=== PATIENT | male | born 1945 | race Caucasian/White ===

== ENCOUNTER → 2018-05-16 08:04 | Outpatient (CLI) | payer MEDICARE, SELFPAY ==
--- NOTE | 2018-05-16 | DI.RAD.S_ITS ---
PROCEDURE: XR CERVICAL SPINE 2V OR 3V INDICATIONS: NECK PAIN TECHNIQUE: 4 view(s) of the cervical spine were acquired. COMPARISON: [facility], , CERVICAL SPINE 2 OR 3 VIEWS, 05/31/2011, 12:40. FINDINGS: Bones: No fractures or dislocations to the C6 level. C7-T1 are obscured by shoulder density on lateral view. Anterior ankylosing spondylosis C4-C6 again noted. Multilevel degenerative disc disease, most marked at C5-6 and C6-7. The lateral masses of C1 appear intact on the odontoid view. No suspicious bony lesions. Soft tissues: No prevertebral soft tissue swelling. Bilateral carotid artery calcifications. IMPRESSION: No significant interval change in diffuse degenerative cervical spine disease. Diffuse calcification in the anterior spinous ligament at C4-C6 overrides the anterior spondylosis present at the disc levels as before. Dictated by: Clint Stockton M.D. on 05/16/2018 at 8:42 Approved by: Clint Stockton M.D. on 05/16/2018 at 8:47
== END ==
PROVIDERS: PCP Physician Assistant; Visit Provider Physician Assistant
DX: M50.322 Other cervical disc degeneration at C5-C6 level (principal); M47.812 Spondylosis without myelopathy or radiculopathy, cervical region; M54.2 Cervicalgia
CPT/HCPCS: 72040

== ENCOUNTER → 2019-10-13 08:21 | Outpatient (CLI) | payer OTHER, SELFPAY ==
[2019-10-13 09:42] LABS: BUN Creatinine Ratio 12.1 (6-22); Blood Urea Nitrogen 17 mg/dL (9-20); Calcium 9.8 mg/dL (8.4-10.2); Carbon Dioxide 30 mmol/L (22-32); Chloride 92 mmol/L (98-107); Estimated Glomerular Filt Rate 49.4 mL/min (>60); Glucose 123 mg/dL (80-110); HEMOLYSIS < 15 (0-50); Potassium 4.9 mmol/L (3.4-5.1); Sodium 131 mmol/L (137-145)
== END ==
PROVIDERS: PCP Internal Medicine; Visit Provider Internal Medicine
DX: E87.6 Hypokalemia (principal)
CPT/HCPCS: 36415; 80048

== ENCOUNTER → 2020-07-13 10:12 | Outpatient (CLI) | payer OTHER, SELFPAY ==
[2020-07-13 11:20] LABS: Hemoglobin A1C% w Est Avg Glu 6.5 % (4.0-6.0)
[2020-07-13 11:21] LABS: Add Manual Diff / Slide Review NO; Basophils Absolute Auto 100 /uL (0-100); Eosinophils Absolute Auto 200 /uL (0-450); Eosinophils Percent Auto 4.1 % (2-4); Hematocrit 34.6 % (41-53); Hemoglobin 11.9 g/dL (13.5-17.5); Lymphocytes Absolute Auto 1600 /uL (1100-4500); Lymphocytes Percent Auto 29.3 % (25-40); Mean Corpuscular HGB Conc 34.5 % (30-36); Mean Corpuscular Hemoglobin 34.6 PG (26-34); Mean Corpuscular Volume 100.5 fL (80-100); Monocytes Absolute Auto 700 /uL (0-900); Monocytes Percent Auto 12.5 % (3-14); Neutrophils Absolute Auto 3000 /uL (1500-7000); Neutrophils Percent Auto 53.1 % (50-75); Platelet Count 239 X10^3/uL (150-400); Red Blood Cell Count 3.44 X10^6/uL (4.5-5.9); Red Cell Distribution Width 12.1 % (11.6-14.8); White Blood Cell Count 5.6 X10^3/uL (4.5-11.0)
[2020-07-13 11:57] LABS: Alanine Aminotransferase 19 IU/L (<50); Albumin 4.1 g/dL (3.5-5.0); Albumin Globulin Ratio 1.2 (1.0-2.8); Alkaline Phosphatase 95 U/L (38-126); Aspartate Aminotransferase 28 IU/L (17-59); BUN Creatinine Ratio 13.8 (6-22); Bilirubin Total 0.7 mg/dL (0.2-1.3); Bilirubin Unconjugated 0.5 mg/dL (0.0-1.1); Blood Urea Nitrogen 19 mg/dL (9-20); Calcium 9.4 mg/dL (8.4-10.2); Carbon Dioxide 25 mmol/L (22-32); Chloride 94 mmol/L (98-107); Cholesterol 174 mg/dL (140-199); Estimated Glomerular Filt Rate 50.1 mL/min (>60); Globulin 3.3 g/dL (1.7-4.1); Glucose 97 mg/dL (80-110); HDL Cholesterol 86 mg/dL (40-60); HEMOLYSIS < 15 (0-50); LDL Cholesterol Calculated 75 mg/dL (<100); Potassium 5.1 mmol/L (3.4-5.1); Sodium 128 mmol/L (137-145); Total Protein 7.4 g/dL (6.3-8.2); Triglycerides 65 mg/dL (35-150)
== END ==
PROVIDERS: PCP Internal Medicine; Referring Provider Internal Medicine; Visit Provider Internal Medicine
DX: E11.9 Type 2 diabetes mellitus without complications (principal); I10 Essential (primary) hypertension; E78.2 Mixed hyperlipidemia; B35.1 Tinea unguium
CPT/HCPCS: 36415; 80053; 80061; 80076; 83036; 85025

== ENCOUNTER → 2021-02-06 08:17 | Outpatient (CLI) | payer OTHER, SELFPAY ==
[2021-02-06 08:46] LABS: Add Manual Diff / Slide Review NO; Basophils Absolute Auto 0 /uL (0-100); Basophils Percent Auto 1.1 % (0-2); Eosinophils Absolute Auto 200 /uL (0-450); Eosinophils Percent Auto 4.1 % (2-4); Hematocrit 35.4 % (41-53); Lymphocytes Absolute Auto 1400 /uL (1100-4500); Lymphocytes Percent Auto 32.8 % (25-40); Mean Corpuscular HGB Conc 33.9 % (30-36); Mean Corpuscular Hemoglobin 34.4 PG (26-34); Mean Corpuscular Volume 101.6 fL (80-100); Monocytes Absolute Auto 600 /uL (0-900); Monocytes Percent Auto 14.3 % (3-14); Neutrophils Absolute Auto 2000 /uL (1500-7000); Neutrophils Percent Auto 47.7 % (50-75); Platelet Count 235 X10^3/uL (150-400); Red Blood Cell Count 3.48 X10^6/uL (4.5-5.9); Red Cell Distribution Width 12.4 % (11.6-14.8); White Blood Cell Count 4.3 X10^3/uL (4.5-11.0)
[2021-02-06 09:06] LABS: Alanine Aminotransferase 26 IU/L (<50); Albumin 4.2 g/dL (3.5-5.0); Albumin Globulin Ratio 1.2 (1.0-2.8); Alkaline Phosphatase 78 U/L (38-126); Aspartate Aminotransferase 29 IU/L (17-59); BUN Creatinine Ratio 15.1 (6-22); Bilirubin Total 0.2 mg/dL (0.2-1.3); Blood Urea Nitrogen 19 mg/dL (9-20); Calcium 9.6 mg/dL (8.4-10.2); Carbon Dioxide 29 mmol/L (22-32); Chloride 95 mmol/L (98-107); Cholesterol 182 mg/dL (140-199); Estimated Glomerular Filt Rate 55.5 mL/min (>60); Globulin 3.4 g/dL (1.7-4.1); Glucose 137 mg/dL (80-110); HDL Cholesterol 88 mg/dL (40-60); HEMOLYSIS < 15 (0-50); LDL Cholesterol Calculated 83 mg/dL (<100); Potassium 4.5 mmol/L (3.4-5.1); Sodium 131 mmol/L (137-145); Total Protein 7.6 g/dL (6.3-8.2); Triglycerides 53 mg/dL (35-150)
== END ==
PROVIDERS: PCP Internal Medicine; Referring Provider Internal Medicine; Visit Provider Internal Medicine
DX: I10 Essential (primary) hypertension (principal); E08.8 Diabetes mellitus due to underlying condition with unspecified complications
CPT/HCPCS: 36415; 80053; 80061; 85025

== ENCOUNTER 2021-05-10 11:03 | Emergency (ER) | payer OTHER, SELFPAY ==
[2021-05-10 11:10] VITALS: BP 173/94; PULSE 114; RESP 14; TEMP 36.8; O2SAT 97; BMI 24.4
--- NOTE | 2021-05-10 11:18 | ED_ITS ---
HPI - Fall General Chief Complaint: Fall Stated Complaint: had a fall 2 days ago, wound on left eyebrow Time Seen by Provider: 05/10/21 11:09 Source: patient and family Mode of arrival: Ambulatory Limitations: no limitations History of Present Illness HPI Narrative: 75-year-old male nonsmoker but daily drinker (1 bottle of wine) presents with family in the chief complaint of a ground level fall 2 days ago. He had been walking in his living room and stumbled, he reached out to try to brace himself and pushed furniture forward and he fell forward striking his head and face on the ground. He denies any loss of consciousness and states he has full recall. He takes no blood thinners. He has had no confusion or vomiting. He did suffer a large laceration over his left eye and was very hesitant to come in because he does not like doctors. He came today because family came to check on him and the reached out to his primary care doctor who sent him here. He denies any blurred vision, trouble with speech. He denies difficulty breathing through his nose. He has no loose teeth. MD complaint: fall Onset (ago): day(s) Fall from: standing Fall witnessed: no Place fall occurred: home Loss of consciousness: none Prolonged down time: no Symptoms prior to fall: none Context: tripped/slipped and alcohol use Location of injury: head and face Severity: moderate Associated symptoms (after fall): chest pain Related Data Home Medications Medication Instructions Recorded Confirmed MENTHOL/METHYL SALICYLATE (PAIN 1 cre TP #0 12/12/12 RELIEF 10%-15%) OMEPRAZOLE 20 mg PO QDAY #0 12/12/12 metformin [Glumetza] 1,000 mg PO QAM #0 12/12/12 Previous Rx's Medication Instructions Recorded cephalexin 500 mg PO Q6H 7 Days #28 cap 05/10/21 hydrocodone-acetaminophen 1 tab PO Q4-6H PRN #10 tab 05/10/21 Allergies Allergy/AdvReac Type Severity Reaction Status Date / Time No Known Drug Allergies Allergy Verified 05/10/21 11:16 Review of Systems Constitutional Constitutional: Denies chills, Denies fatigue, Denies fever(s), Denies frequent falls, Denies lethargy and Denies weakness Eyes Eyes: Denies change in vision, Denies eye discharge, Denies irritation and Denies loss of vision ENT Ears, Nose, Mouth, and Throat: Denies change in voice, Denies dizziness, Denies neck pain, Denies sore throat and Denies throat swelling Cardiovascular Cardiovascular: Denies chest pain, Denies irregular heart rhythm, Denies lig htheadedness, Denies palpitations, Denies dyspnea, Denies dyspnea on exertion and Denies orthopnea Respiratory Respiratory: Denies cough, Denies dyspnea, Denies dyspnea on exertion and Denies wheezing Gastrointestinal Gastrointestinal: Denies abdominal pain, Denies change in bowel habits, Denies diarrhea, Denies nausea and Denies vomiting Musculoskeletal Musculoskeletal: Denies neck pain and Denies numbness Integumentary/Breasts Skin/Breast: Denies pruritus, Denies erythema, Denies rash and Denies wounds Neurologic Neurologic: Denies behavioral changes, Denies confusion, Denies dizziness, Denies frequent falls, Denies loss of vision, Denies numbness and Denies weakness Psychiatric Psychiatric: Denies anxiety, Denies behavioral changes, Denies confusion, Denies depression, Denies homicidal ideation and Denies suicidal ideation Endocrine Endocrine: Denies fatigue, Denies flushing and Denies palpitations Hematologic/Lymphatic Hematologic/Lymphatic: Denies easy bruising Allergic/Immunologic Allergic/Immunologic: Denies urticaria, Denies throat swelling and Denies wheezing Patient History Social History Smoking Status: Unknown if ever smoked Exam Narrative Exam Narrative: GENERAL: [75] year old patient appears stated age. Well-devel oped patient, in mild distress. Flat affect, normal per family. GCS 15 HEAD: Deep irregular laceration overlying left brow, no active bleeding, no evidence of depressed skull fracture EYES: Pupils equal round and reactive. No hyphema Extraocular motions intact. No scleral icterus. No injection or drainage. ENT: Nose without bleeding, purulent drainage. No nasal septal hematoma or hemotympanum Throat without erythema, tonsillar hypertrophy or exudate. Airway patent. NECK: Trachea midline. Non tender CARDIOVASCULAR: Tachycardic but regular rhythm without murmurs, gallops, or rubs. Anterior chest tender to palpation, no crepitance, ecchymosis or erythema RESPIRATORY: Clear to auscultation. Breath sounds equal bilaterally. No wheezes, rales, or rhonchi. GASTROINTESTINAL: Abdomen soft, non-tender, nondistended. EXTREMITIES: No edema or joint tenderness. BACK: Nontender without deformity or crepitance. No flank tenderness. NEURO: AOx3. SKIN: No rash or erythema of visible areas Initial Vital Signs Initial Vital Signs: Vital Signs Temperature 98.2 F 05/10/21 11:10 Pulse Rate 114 H 05/10/21 11:10 Respiratory Rate 14 05/10/21 11:10 Blood Pressure 173/94 H 05/10/21 11:10 Pulse Oximetry 97 05/10/21 11:10 Course Orders Ordered: ED Orders 05/10/21 11:18 CT cervical spine wo con Stat CT head/brain wo con Stat 05/10/21 11:21 CT chest abd pel w con Stat 05/10/21 11:30 Complete Blood Count AUTO DIFF Stat Comprehensive Metabolic Panel Stat Troponin & CK Cardiac Panel Stat 05/10/21 12:00 CT facial bones wo con Stat Discontinued Medications Diphtheria/Tetanus/Acell Pertussis (Tet,Diph,Pertuss(Acell),Vac/Pf 0.5 Ml Syringe) 0.5 ml IM .ONCE ONE Stop: 05/10/21 11:18 Last Admin: 05/10/21 11:31 Dose: 0.5 ml Documented by: STEPHANY Sodium Chloride (Normal Saline 0.9%) 1,000 mls @ 125 mls/hr IV CONT SAMANTHA Last Infusion: 05/10/21 15:09 Dose: 0 mls/hr Documented by: Admin: 05/10/21 11:33 Dose: 125 mls/hr Documented by: STEPHANY Lidocaine/Epinephrine (Lidocaine 1% W/Epi) 1 ml SUBCUT NOW ONE Stop: 05/10/21 14:08 Last Admin: 05/10/21 14:53 Dose: 1 ml Documented by: ATARONYOR Vital Signs Vital signs: Vital Signs - 8 hr 05/10/21 11:10 05/10/21 14:57 Temperature 98.2 F Pulse Rate 114 H 89 Respiratory Rate 14 18 Blood Pressure 173/94 H 184/83 H Pulse Oximetry 97 97 MDM - Fall Lab Data Result diagrams: 05/10/21 11:30 05/10/21 11:30 Labs: Lab Results 05/10/21 05/10/21 05/10/21 Range/Units 11:30 11:30 11:30 WBC 6.3 (4.5-11.0) X10^3/uL RBC 3.59 L (4.5-5.9) X10^6/uL Hgb 12.3 L (13.5-17.5) g/dL Hct 36.4 L (41-53) % MCV 101.5 H (80-100) fL MCH 34.4 H (26-34) PG MCHC 33.9 (30-36) % RDW 12.7 (11.6-14.8) % Plt Count 271 (150-400) X10^3/uL Neut % (Auto) 72.1 (50-75) % Lymph % (Auto) 18.1 L (25-40) % [place] % (Auto) 8.4 (3-14) % Eos % (Auto) 0.4 L (2-4) % Baso % (Auto) 1.0 (0-2) % Neut # (Auto) 4500 (4448-3102) /uL Lymph # (Auto) 1100 (6311-5299) /uL [place] # (Auto) 500 (0-900) /uL Eos # (Auto) 0 (0-450) /uL Baso # (Auto) 100 (0-100) /uL Sodium 132 L (137-145) mmol/L Potassium 4.6 (3.4-5.1) mmol/L Chloride 93 L (98-107) mmol/L Carbon Dioxide 28 (22-32) mmol/L BUN 16 (9-20) mg/dL Creatinine 1.14 (0.66-1.25) mg/dL Estimated GFR > 60.0 (>60) mL/min BUN/Creatinine Ratio 14.0 (6-22) Glucose 136 H (80-110) mg/dL Calcium 9.8 (8.4-10.2) mg/dL Total Bilirubin 0.6 (0.2-1.3) mg/dL AST 48 (17-59) IU/L ALT 36 (<50) IU/L Alkaline Phosphatase 142 H (38-126) U/L Total Creatine Kinase 32 L (55-170) U/L CK-MB (CK-2) TNP CK-MB (CK-2) Rel Index TNP Troponin I < 0.012 (0.01-0.034) ng/mL Total Protein 8.1 (6.3-8.2) g/dL Albumin 4.3 (3.5-5.0) g/dL Globulin 3.8 (1.7-4.1) g/dL Albumin/Globulin Ratio 1.1 (1.0-2.8) Urine Dip Bedside Urine Glucose Negative Bedside Urine Bilirubin - Negative Bedside Urine Ketone +/- 5 Urine Specific [place] 1.030 Bedside Urine Occult Blood - Negative Bedside Urine pH 5.5 Bedside Urine Protein + 30 Bedside Urine Urobilinogen - Negative Bedside Urine Nitrite - Negative Bedside Urine Leukocytes - Negative Esterase Imaging Data CT scan - head: Radiologist's Impression: CT Scan ReportSigned Patient: Kanika Angela R#: [id number]: 1945cct:[id number]/Sex: 75 / MDate of Service: 05/10/21Loc: EDAccession Number: [id number] Procedure: CT head/brain wo con Ordering Provider: Benigno Guillen D.O. PROCEDURE: CT HEAD/BRAIN WO CON INDICATIONS: fall with head injury 2 days ago TECHNIQUE: Noncontrast 4.5 mm thick angled axial sections acquired from the foramen magnum to the vertex, with coronal and sagittal reformats. For radiation dose reduction, the following was used: automated exposure control, adjustment of mA and/or kV according to patient size. COMPARISON: [facility], CT, HEAD WITHOUT CONTRAST, 05/31/2011, 12:41. FINDINGS: Image quality: Excellent. CSF spaces: Basal cisterns are patent. No extra-axial fluid collections. The ventricles are symmetric in size and shape. Brain: No intracranial bleeds or masses. There is diffuse volume loss which is greater than expected for patient age, with associated mild ventriculomegaly and prominence of the sulci. There are periventricular and deep white matter chronic small vessel ischemic changes. There is intracranial internal carotid artery atherosclerosis. Skull and face: Calvarium and visualized facial bones appear intact, without suspicious lesions. Sinuses: Visualized sinuses and mastoids are clear. IMPRESSION: Diffuse volume loss is greater than expected for patient age. Negative for acute stroke, hemorrhage, or mass. No evidence of significant intracranial sequelae of acute trauma. Dictated by: Wm Savage M.D. on 05/10/2021 at 13:11 Approved by: Wm Savage M.D. on 05/10/2021 at 13:13 CT - cervical spine: Radiologist's Impression: Chart Viewer Diagnostics DATE TYPE STATUS REF RANGE/AUTHOR Hx Today 12:00 Alen Arriola Today 11:21 Alen Arriola Today 11:18 Wm Savage Today 11:18 Wm Savage 05/16/18 00:00 Clint Stockton Bobbie H 75, M112/20/1944 [facility], [facility] ED R07 182.88cm 81.647kg BMI: 24.4kg/m? Fall Search Chart No Data to Display NonFormulary Not Included in Conflicts No Data to Display Today 11:10 Kanika Angela 75 M [address] [id number] Scan ReportSigned Patient: Kanika Angela HMR#: [id number]: 1945cct:[id number]/Sex: 75 / MDate of Service: 05/10/21Loc: EDAccession Number: [id number] Procedure: CT cervical spine wo con Ordering Provider: Benigno Guillen D.O. PROCEDURE: CT CERVICAL SPINE WO CON INDICATIONS: fall with head injury 2 days ago TECHNIQUE: Noncontrast 3 mm thick sections acquired from the skull base to the T4 level. Sagittal and coronal reformats were then constructed. For radiation dose reduction, the following was used: automated exposure control, adjustment of mA and/or kV according to patient size. COMPARISON: [facility], CR, XR CERVICAL SPINE 2V OR 3V, 05/16/2018, 7:49. [facility], CT, CT CHEST ABD PEL W CON, 05/10/2021, 12:11. FINDINGS: Image quality: Excellent. Bones: There is extensive spondylitic change with bulky, bridging anterior osteophytes extending from inferior C3 through T3. There is a moderate compression of T1. Cannot exclude a acute fracture through the inferior endplate. There is an old fracture of the spinous process of C7. No other acute fractures are identified. There is multilevel bony foraminal narrowing. Prominent bilateral facet arthropathy is present at C2-C3 bilaterally Soft tissues: Prevertebral soft tissues are normal in thickness. No paravertebral hematomas. No apical pneumothoraces. Dense bilateral carotid bifurcation calcifications. IMPRESSION: 1. There is extensive cervical spondylosis with bulky anterior bridging osteophyte from C3 through T3. There is also multilevel bony foraminal narrowing. 2. There is a compression of T1, which is moderate, and likely chronic. However, cannot exclude an acute fracture through the inferior endplate of T1. 3. Old C7 spinous process fracture. Comment: Findings were discussed with Dr. Guillen at the time of study dictation on 05/10/2021 at 1310 hours. Consider cervical spine MRI. Dictated by: Wm Savage M.D. on 05/10/2021 at 12:57 Approved by: Wm Savage M.D. on 05/10/2021 at 13:11 Facial Bones: Radiologist's Impression: Kanika Angela 75 M [address] Scan ReportSigned Patient: Kanika Angela R#: [id number]: 1945cct:[id number]/Sex: 75 / MDate of Service: 05/10/21Loc: EDAccession Number: [id number] Procedure: CT facial bones wo con Ordering Provider: Benigno Guillen D.O. PROCEDURE: CT FACIAL BONES WO CON INDICATIONS: fall with facial injury TECHNIQUE: Noncontrast 2.5 mm thick axial images acquired from the mandible through the frontal sinuses, with coronal and sagittal reformatting. For radiation dose reduction, the following was used: automated exposure control, adjustment of mA and/or kV according to patient size. COMPARISON: None. FINDINGS: Image quality: Excellent. Bones and teeth: Orbital dimas are intact. Sinus dimas show no fracture or deformity. Nasal bones and septum are free of significant displacement but at the anterior nasal bones bilaterally there is leftward angulation, mild in severity and chronicity uncertain.. Visualized portions of the mandible demonstrate no fractures or subluxation. Zygomatic arches are intact. Pterygoid plates are intact. Visualized portions of the skull base and auditory canals are intact. Sinuses: Paranasal sinuses are aerated, without fluid levels, mucosal thickenin g, or mucoceles. Mastoid air cells are aerated. Soft tissues: No edema, masses, or fluid collections. No enlarged lymph nodes. No soft tissue lacerations or debris. Vascular: Visualized vascular structures appear normal in the absence of contrast. Bony vascular foramina and canals are intact. IMPRESSION: Moderately severe degenerative disc disease and facet osteoarthritis along the cervical spine without acute fracture or subluxation. Bridging osteophytes over the middle and lower thirds of the cervical spine are present without evidence of fracture through these areas of ankylosis. Incidental note is made of soft tissue bruising and apparent laceration over the left facial area, in the periorbital area, without underlying fracture. Note is made of mild angulation abnormality at the anterior nasal bones bilaterally, left greater than right. There is mild deviation of these structures leftward. Dictated by: Alen Arriola M.D. on 05/10/2021 at 12:48 Approved by: Alen Arriola M.D. on 05/10/2021 at 12:52 CT scan - abdomen/pelvis: Radiologist's Impression: [address] [id number] Scan ReportSigned Patient: Kanika Angela R#: [id number]: 3Acct:[id number]/Sex: 75 / MDate of Service: 05/10/21Loc: EDAccession Number: [id number] Procedure: CT chest abd pel w con Ordering Provider: Benigno Guillen D.O. PROCEDURE: CT CHEST ABD PEL W CON INDICATIONS: Chest and back pain after fall. Patient ambulating. TECHNIQUE: After the administration of oral and intravenous contrast, axial sections acquired from the supraclavicular neck to the pubic symphysis. Coronal and sagittal reformats were performed. For radiation dose reduction, the following was used: automated exposure control, adjustment of mA and/or kV according to patient size. COMPARISON:None. FINDINGS: Image quality: Excellent. CHEST: Lower Neck: No enlarged lymph nodes. Thyroid: Within normal limits. Axillae: No enlarged lymph nodes. Chest Wall: Unremarkable. Lungs and Airways: No behind the ural ef heart fusions. Heart: Heart size is normal. No pericardial effusion. Thoracic Vessels: The aorta and pulmonary arteries demonstrate normal size. Mediastinum and Jessa: No enlarged lymph nodes. Esophagus: No wall thickening. There is a moderately large hiatal hernia. ABDOMEN: Liver: Unremarkable. Gallbladder: Unremarkable. Biliary ducts: Unremarkable. Pancreas: Unremarkable. Spleen: Unremarkable. Adrenal Glands: Unremarkable. Kidneys and Ureters: Unremarkable. Stomach and Bowel: Stomach, small bowel loops, and colon are unremarkable. Peritoneum: No abnormal intraperitoneal fluid. No free air. Ventral Wall: No hernia. Abdominal Nodes: No retroperitoneal or mesenteric adenopathy by size criteria. Vessels: Aorta and inferior vena cava are normal in size. PELVIS: Pelvic Organs: Unremarkable. Bladder: Unremarkable. Pelvic Nodes: No enlarged lymph nodes. Miscellaneous: No inguinal hernias are seen. Bones: Chronic degenerative disc disease and multilevel bridging osteophytes along the mid and low cervical spine and the thoracic spine. No fracture found. No traumatic subluxation identified.. IMPRESSION: 1. No acute trauma found. 2. Moderately severe degenerative disc disease with bridging osteophytes along the cervical and thoracic spine to the degree that some degree of ankylosis appears present. No fracture or traumatic subluxation is found. 3. Moderately large hiatal hernia behind the heart, as an incidental finding. Dictated by: Alen Arriola M.D. on 05/10/2021 at 12:44 Approved by: Alen Arriola M.D. on 05/10/2021 at 12:48 Discharge Plan Departure Patient Disposition: Home Clinical Impression: Complex laceration of face Qualifiers: Encounter type: initial encounter Qualified Code(s): S01.91XA - Laceration without foreign body of unspecified part of head, initial encounter Instructions: DI for Laceration Repair, How to Prevent Falls Activity Restrictions/Additional Instructions: *You have been diagnosed with [fall with complex facial laceration and delayed closure] *What to do: *Please continue to take your regular medications as directed. [x ] New medication prescriptions sent to your pharmacy: [[facility]] [ ] New medication written as a paper prescription [ ] No new medications given *Please follow up with your primary care provider in 2-3 days, call for an appointment. Let them know you were seen in the Emergency Department and that we ask that you be seen in follow up. We will electronically transmit a record of today's note if your PCP is in our system *If you do not have a primary care provider please contact the [facility] Resource line at [phone]. They will ask some questions about your medical history and help get you set up with a doctor in the community. *Return to Emergency Department if you should have any new, worsening or concerning symptoms, such as [fever greater than 101 F, shaking chills, worsening pain, persistent vomiting or other bothersome symptoms] Prescriptions: New hydrocodone-acetaminophen 5-325 mg tablet 1 tab PO Q4-6H PRN (Reason: pain) Qty: 10 RF: 0 cephalexin 500 mg capsule 500 mg PO Q6H 7 Days Qty: 28 RF: 0 No Action MENTHOL/METHYL SALICYLATE (PAIN RELIEF 10%-15%) 1 cre TP Qty: 0 RF: 0 metformin [Glumetza] 1,000 MG tablet,ER keith.retention 24 hr 1,000 mg PO QAM Qty: 0 RF: 0 OMEPRAZOLE 20 mg PO QDAY Qty: 0 RF: 0 Referrals: Jose Hines MD [Primary Care Provider] -
--- NOTE | 2021-05-10 11:21 | DI.CT.S_ITS ---
PROCEDURE: CT CHEST ABD PEL W CON INDICATIONS: Chest and back pain after fall. Patient ambulating. TECHNIQUE: After the administration of oral and intravenous contrast, axial sections acquired from the supraclavicular neck to the pubic symphysis. Coronal and sagittal reformats were performed. For radiation dose reduction, the following was used: automated exposure control, adjustment of mA and/or kV according to patient size. COMPARISON:None. FINDINGS: Image quality: Excellent. CHEST: Lower Neck: No enlarged lymph nodes. Thyroid: Within normal limits. Axillae: No enlarged lymph nodes. Chest Wall: Unremarkable. Lungs and Airways: No behind the ural ef heart fusions. Heart: Heart size is normal. No pericardial effusion. Thoracic Vessels: The aorta and pulmonary arteries demonstrate normal size. Mediastinum and Jessa: No enlarged lymph nodes. Esophagus: No wall thickening. There is a moderately large hiatal hernia. ABDOMEN: Liver: Unremarkable. Gallbladder: Unremarkable. Biliary ducts: Unremarkable. Pancreas: Unremarkable. Spleen: Unremarkable. Adrenal Glands: Unremarkable. Kidneys and Ureters: Unremarkable. Stomach and Bowel: Stomach, small bowel loops, and colon are unremarkable. Peritoneum: No abnormal intraperitoneal fluid. No free air. Ventral Wall: No hernia. Abdominal Nodes: No retroperitoneal or mesenteric adenopathy by size criteria. Vessels: Aorta and inferior vena cava are normal in size. PELVIS: Pelvic Organs: Unremarkable. Bladder: Unremarkable. Pelvic Nodes: No enlarged lymph nodes. Miscellaneous: No inguinal hernias are seen. Bones: Chronic degenerative disc disease and multilevel bridging osteophytes along the mid and low cervical spine and the thoracic spine. No fracture found. No traumatic subluxation identified.. IMPRESSION: 1. No acute trauma found. 2. Moderately severe degenerative disc disease with bridging osteophytes along the cervical and thoracic spine to the degree that some degree of ankylosis appears present. No fracture or traumatic subluxation is found. 3. Moderately large hiatal hernia behind the heart, as an incidental finding. Dictated by: Alen Arriola M.D. on 05/10/2021 at 12:44 Approved by: Alen Arriola M.D. on 05/10/2021 at 12:48
[2021-05-10] MEDS: TET,DIPH,PERTUSS(ACELL),VAC/PF 0.5 ML SYRINGE IM (11:31)
[2021-05-10] MEDS: SODIUM CHLORIDE 0.9% 1,000 ML 125 ML IV (11:33)
[2021-05-10 11:39] LABS: Add Manual Diff / Slide Review NO; Basophils Absolute Auto 100 /uL (0-100); Eosinophils Absolute Auto 0 /uL (0-450); Eosinophils Percent Auto 0.4 % (2-4); Hematocrit 36.4 % (41-53); Hemoglobin 12.3 g/dL (13.5-17.5); Lymphocytes Absolute Auto 1100 /uL (1100-4500); Lymphocytes Percent Auto 18.1 % (25-40); Mean Corpuscular HGB Conc 33.9 % (30-36); Mean Corpuscular Hemoglobin 34.4 PG (26-34); Mean Corpuscular Volume 101.5 fL (80-100); Monocytes Absolute Auto 500 /uL (0-900); Monocytes Percent Auto 8.4 % (3-14); Neutrophils Absolute Auto 4500 /uL (1500-7000); Neutrophils Percent Auto 72.1 % (50-75); Platelet Count 271 X10^3/uL (150-400); Red Blood Cell Count 3.59 X10^6/uL (4.5-5.9); Red Cell Distribution Width 12.7 % (11.6-14.8); White Blood Cell Count 6.3 X10^3/uL (4.5-11.0)
[2021-05-10 11:51] LABS: Alanine Aminotransferase 36 IU/L (<50); Albumin 4.3 g/dL (3.5-5.0); Albumin Globulin Ratio 1.1 (1.0-2.8); Alkaline Phosphatase 142 U/L (38-126); Aspartate Aminotransferase 48 IU/L (17-59); Bilirubin Total 0.6 mg/dL (0.2-1.3); Blood Urea Nitrogen 16 mg/dL (9-20); Calcium 9.8 mg/dL (8.4-10.2); Carbon Dioxide 28 mmol/L (22-32); Chloride 93 mmol/L (98-107); Creatine Kinase 32 U/L (55-170); Estimated Glomerular Filt Rate > 60.0 mL/min (>60); Globulin 3.8 g/dL (1.7-4.1); Glucose 136 mg/dL (80-110); HEMOLYSIS < 15 (0-50); Potassium 4.6 mmol/L (3.4-5.1); Sodium 132 mmol/L (137-145); Total Protein 8.1 g/dL (6.3-8.2)
--- NOTE | 2021-05-10 12:00 | DI.CT.S_ITS ---
PROCEDURE: CT FACIAL BONES WO CON INDICATIONS: fall with facial injury TECHNIQUE: Noncontrast 2.5 mm thick axial images acquired from the mandible through the frontal sinuses, with coronal and sagittal reformatting. For radiation dose reduction, the following was used: automated exposure control, adjustment of mA and/or kV according to patient size. COMPARISON: None. FINDINGS: Image quality: Excellent. Bones and teeth: Orbital dimas are intact. Sinus dimas show no fracture or deformity. Nasal bones and septum are free of significant displacement but at the anterior nasal bones bilaterally there is leftward angulation, mild in severity and chronicity uncertain.. Visualized portions of the mandible demonstrate no fractures or subluxation. Zygomatic arches are intact. Pterygoid plates are intact. Visualized portions of the skull base and auditory canals are intact. Sinuses: Paranasal sinuses are aerated, without fluid levels, mucosal thickening, or mucoceles. Mastoid air cells are aerated. Soft tissues: No edema, masses, or fluid collections. No enlarged lymph nodes. No soft tissue lacerations or debris. Vascular: Visualized vascular structures appear normal in the absence of contrast. Bony vascular foramina and canals are intact. IMPRESSION: Moderately severe degenerative disc disease and facet osteoarthritis along the cervical spine without acute fracture or subluxation. Bridging osteophytes over the middle and lower thirds of the cervical spine are present without evidence of fracture through these areas of ankylosis. Incidental note is made of soft tissue bruising and apparent laceration over the left facial area, in the periorbital area, without underlying fracture. Note is made of mild angulation abnormality at the anterior nasal bones bilaterally, left greater than right. There is mild deviation of these structures leftward. Dictated by: Alen Arriola M.D. on 05/10/2021 at 12:48 Approved by: Alen Arriola M.D. on 05/10/2021 at 12:52
[2021-05-10 12:02] LABS: Troponin I < 0.012 ng/mL (0.01-0.034)
--- NOTE | 2021-05-10 12:18 | PC.NURSE ---
Radiology Test #4 Head/Brain without contrast.
[2021-05-10] MEDS: LIDOCAINE 1% W/EPI 1 ML SUBCUT (14:53)
[2021-05-10 14:57] VITALS: BP 184/83; PULSE 89; RESP 18; O2SAT 97
== END 2021-05-10 15:10 | disposition home or self-care (01) ==
PROVIDERS: Emergency Provider Emergency Medicine; PCP Internal Medicine
DX: S01.91XA Laceration without foreign body of unspecified part of head, initial encounter (principal); S29.9XXA Unspecified injury of thorax, initial encounter; M54.9 Dorsalgia, unspecified; W19.XXXA Unspecified fall, initial encounter; Z23 Encounter for immunization
CPT/HCPCS: 12013; 36415; 70450; 70486; 71260; 72125; 74177; 80053; 81003; 82550; 84484; 85025; 90471; 96360; 96361; 99285; 90715; Q9967

== ENCOUNTER 2021-09-05 07:56 | Day surgery (SDC) | payer OTHER, SELFPAY ==
--- NOTE | 2021-09-05 | PATH_ITS ---
[facility] Accession Number: [id number] . 01 Material submitted: . colon - TRANSVERSE COLON POLYP X2 . 02 Diagnosis: Transverse Colon, Polyp x2, Biopsies: Tubular adenomas. MRV 09/07/2021 1155 Local . 02 Electronically signed: . Colette Harrell MD, Pathologist NPI- [id number] . 01 Gross description: . TRANSVERSE COLON POLYP X2: Received in formalin are multiple fragment(s) of godwin, soft tissue measuring 1.0 x 0.7 x 0.4 cm in aggregate submitted entirely in 1 cassette(s) /SEVEN 09/06/2021 0512 Local . 02 Pathologist provided ICD-10: D12.3 . 02 CPT . 995545 Performed at: 01 [facility] [address], [place], [place] [id number] MD Denny Landa MD Phone: [phone] Performed at: 02 [facility] [address] [place], [place] [id number] MD Colette Harrell MD Phone: [phone]
[2021-09-05 08:40] LABS: COVID19 -Nasal RAPID Negative (Negative)
[2021-09-05 09:15] VITALS: BP 190/87; PULSE 87; RESP 16; TEMP 36.8; O2SAT 99; BMI 25.7
[2021-09-05] MEDS: LACTATED RINGERS 1,000 ML 42 ML IV (09:15)
--- NOTE | 2021-09-05 09:52 | PM.HP.1 ---
History of Present Illness History of Present Illness Date Patient Seen: 09/05/21 Time Patient Seen: 09:52 Chief complaint: EGD/COLONOSCOPY Narrative: I reviewed my note from July 24, 2021. No changes. Patient History Family & Social History Social History: household members significant other Tobacco & Substance use: Smoking Status Never smoker alcohol intake current alcohol intake frequency 3 or more drinks per day Substance Use Type does not use Meds Home Medications and Allergies Home Medications Medication Instructions Recorded Confirmed Type OMEPRAZOLE 20 mg PO QDAY #0 12/12/12 09/05/21 History metformin 1,000 mg 24 hr 1,000 mg PO QAM #0 12/12/12 09/05/21 History tablet,extended release (Glumetza) lisinopril 40 mg PO DAILY 09/05/21 09/05/21 History Allergies Allergy/AdvReac Type Severity Reaction Status Date / Time No Known Drug Allergies Allergy Verified 09/05/21 08:53 Review of Systems Review of Systems ROS: Yes All systems reviewed with the patient and are negative except as otherwise documented Exam Vital Signs (past 8 hours): - 09/05/21 09:15 Temperature 98.2 F Pulse Rate 87 Respiratory Rate 16 Blood Pressure 190/87 H Pulse Oximetry 99 Oxygen Delivery Method Room Air Const General: cooperative and comfortable Orientation: alert HENMT Head: normocephalic Ears: external ears normal Nose: external nose normal Face and sinus: normal facial exam Mouth: oral mucosae normal Eyes General: appearance normal, both eyes and all related structures Neck Neck: normal visual inspection Chest Chest: normal inspection of the chest Resp Effort & Inspection: normal respiratory effort Auscultation: clear to auscultation bilaterally Cardio Rate: regular rate Rhythm: regular rhythm Heart Sounds: no murmurs GI Inspection: normal to inspection Palpation: soft and No tender Auscultation: normal bowel sounds Skin General: no rashes or lesions noted and No jaundice Neuro General: patient alert and moves all extremities Cognition: normal cognition Speech: speech normal Extrem General: no pedal edema Psych Appearance: grossly normal Objective Labs Labs: Laboratory Results - last 24 hr 09/05/21 08:06 SARS-CoV-2 (PCR) Negative Assessment & Plan Assessment & Plan narrative: Iron deficiency anemia. EGD and colonoscopy are pursued today. Time Spent With Patient Critical Care time: I spent a total of [] minutes of critical care time on this patient's care today; this time is exclusive of procedural time.
--- NOTE | 2021-09-05 09:53 | PM.PREOP ---
Pre-operative Note COVID-19 COVID-19 status: Negative Result date/Date tested (Pos, Neg/Pending): 09/05/21 Interval Note History & Physical reviewed/Exam performed by Physician: Yes Changes to H&P: No ASA Class (for procedural sedation): II
--- NOTE | 2021-09-05 10:12 | PM.OP.EGD ---
Operative Date/Time/Diagnoses Date of procedure: 09/05/21 Time of procedure: 10:12 Pre-op diagnosis: Melena Post-op diagnosis: same Procedure & Clinicians Study performed: EGD with biopsies Same procedure as scheduled: Yes Indications: Melena Surgeon: Federico Cr Procedure Notes SCOAP/Timeout: Done Procedure in detail: After the risks and benefits were explained, written and verbal informed consent was obtained. The patient was brought into the procedure room and placed into the left lateral decubitus position. Please see nurse returned goods sorter notes for sedation details. The scope was introduced into the mouth through the bite block and advanced under direct visualization to the 2nd portion of the duodenum. The scope was slowly withdrawn carefully examining the mucosa for any defects or lesions. Retroflexed views were accomplished in the stomach. The stomach was decompressed, the scope was then removed from the patient who tolerated the procedure well. Sedation minutes: 10 Complications: none Impression: 1. Duodenum: There was some streaky erythema in the bulb but no erosions no ulcers no strictures no mass lesions. The 2nd portion of the duodenum appeared normal. 2. Stomach: Patient had an erosive gastropathy. There were a couple of subtle erosions within the pyloric channel but no outlet obstruction. No ulcers. The erosive features were mostly within the pre-pyloric and antral region. Antral biopsies were acquired for exclusion of Helicobacter or other pathology. Retroflexed views of the LES were otherwise unremarkable. 3. Esophagus: The squamocolumnar junction generally correlated with the top of the gastric folds. The GEJ was at approximately 35 cm from the incisors. There was some slight irregularity to the cardia side of the GEJ which was probably simply inflammatory but biopsy was acquired for exclusion of the underlying pathology. The remainder of the esophagus was unremarkable. Endoscopic diagnosis 1. Erosive gastropathy 2. Irregular GEJ/cardia 3. Very subtle sliding hiatal hernia (not mentioned above) Post-procedure Plan for aftercare: 1. Await histopathology 2. Continue to avoid NSAIDs
--- NOTE | 2021-09-05 11:08 | SUR.OPER ---
colonoscopy incomplete due to tortuous colon at hepatic flexure. EGD not atempted
--- NOTE | 2021-09-05 11:12 | P.OP.COLON_ITS ---
Operative Date/Time/Diagnoses Date of procedure: 09/05/21 Time of procedure: 11:12 Pre-op diagnosis: Iron deficiency anemia Post-op diagnosis: same Procedure & Clinicians Study performed: Incomplete colonoscopy with hot snare polypectomy. Same procedure as scheduled: No Indications: Iron deficiency anemia Surgeon: Federico Cr Procedure Notes SCOAP/Timeout: Done Procedure in detail: After the risks and benefits were explained, written and verbal informed consent was obtained. The patient was brought into the procedure room and placed into the left lateral decubitus position. Please see nurse transmission supervisor note for sedation details. Digital rectal examination was accomplished. The scope was introduced into the patient and advanced under direct visualization to the hepatic flexure. The patient had an extremely redundant tortuous colon especially at this location and in spite of patient position changes, application of abdominal pressure, and use of the inter channel scope stiffener we were not able to overcome looping at this location. The patient was not very tolerant of these efforts and transiently moderately tachycardic. I elected to abandon any further effort to obtain cecal intubation. The scope was slowly withdrawn to carefully examine the mucosa for any defects or lesions. We decompressed the colon as much as possible all the way out. Comprehensive imaging was accomplished throughout the rectum including the dentate line. The colon was decompressed, the scope was then removed from the patient who tolerated the procedure suboptimally. Based on his degree of difficulty the length of procedure time to achieve even hepatic flexure with the air insufflation I did not feel it was appropriate to advance a scope into his upper GI tract for the scheduled EGD. The scheduled EGD was thus not pursued at the end of our efforts today. After the colon was decompressed the patient's vitals stabilized and he was transferred to the PACU in stable condition. Bowel prep poor copious amounts of irrigation and suction were required for even partial evaluation of the mucosa in many locations. This is largely a retained dark green liquid material with fragments of fiber. Adult colonoscope. Scope withdrawal time: Not applicable Sedation minutes: 31 Complications: none Impression: 1. EGD not accomplished today. 2. Colon: Patient had a very tortuous redundant length the colon. As a consequence we were not able to advance beyond hepatic flexure. See above. In the transverse colon there was a sessile 10 mm polyp removed with hot snare and a slightly smaller 5 to 6 mm polyp nearby also removed with hot snare. Within the limitations of bowel prep I did not see any additional pathology or source for iron deficiency. Endoscopic diagnosis 1. EGD not attempted 2. Incomplete colonoscopy 3. Lengthy redundant tortuous colon 4. Colon polyps 5. Suboptimal bowel prep Post-procedure Plan for aftercare: 1. The patient will be monitored closely in PACU for return to baseline. 2. Await histopathology 3. Consider repeat attempt at EGD colonoscopy with an extra day of bowel prep. However prior to this I think it would be appropriate to sit down with the patient in the office to discuss this in more detail. Disposition: PACU
[2021-09-05 11:17] VITALS: BP 141/77; PULSE 86; RESP 16; TEMP 36; O2SAT 97
[2021-09-05 11:22] VITALS: BP 160/87; PULSE 83; RESP 23; TEMP 36.8; O2SAT 99
[2021-09-05 11:27] VITALS: BP 182/97; PULSE 80; RESP 19; TEMP 35.8; O2SAT 99
[2021-09-05 11:32] VITALS: BP 183/94; PULSE 77; RESP 20; TEMP 36.1; O2SAT 99
[2021-09-05 11:55] VITALS: BP 196/101; PULSE 78; RESP 16; TEMP 36.8; O2SAT 98
== END 2021-09-05 11:57 | disposition home or self-care (01) ==
PROVIDERS: PCP Hospitalist; Referring Provider Internal Medicine Gastroenterology; Visit Provider Internal Medicine Gastroenterology
PROC: 0DJ08ZZ Inspection of Upper Intestinal Tract, Via Natural or Artificial Opening Endoscopic (ICD-10-PCS; CPT 43235; principal; 2021-09-05 10:00)
PROC: 0DJD8ZZ Inspection of Lower Intestinal Tract, Via Natural or Artificial Opening Endoscopic (ICD-10-PCS; CPT 45378; 2021-09-05 10:00)
DX: D50.9 Iron deficiency anemia, unspecified (principal); Z86.010 Personal history of colon polyps; Z20.822 Contact with and (suspected) exposure to COVID-19; D12.3 Benign neoplasm of transverse colon; E78.5 Hyperlipidemia, unspecified; I10 Essential (primary) hypertension; E11.9 Type 2 diabetes mellitus without complications; Z79.84 Long term (current) use of oral hypoglycemic drugs
CPT/HCPCS: 45385; 87635; J2704

== ENCOUNTER → 2022-12-04 11:15 | Outpatient (ROUT) | payer OTHER, SELFPAY ==
[2022-12-04 11:29] LABS: Add Manual Diff / Slide Review NO; Basophils Absolute Auto 0 /uL (0-100); Basophils Percent Auto 1.3 % (0-2); Eosinophils Absolute Auto 100 /uL (0-450); Eosinophils Percent Auto 2.5 % (2-4); Hemoglobin 8.2 g/dL (13.5-17.5); Lymphocytes Absolute Auto 1300 /uL (1100-4500); Mean Corpuscular HGB Conc 30.5 % (30-36); Mean Corpuscular Hemoglobin 25.5 PG (26-34); Mean Corpuscular Volume 83.8 fL (80-100); Monocytes Absolute Auto 300 /uL (0-900); Monocytes Percent Auto 8.9 % (3-14); Neutrophils Absolute Auto 1900 /uL (1500-7000); Neutrophils Percent Auto 52.3 % (50-75); Platelet Count 385 X10^3/uL (150-400); Red Blood Cell Count 3.23 X10^6/uL (4.5-5.9); Red Cell Distribution Width 17.6 % (11.6-14.8); White Blood Cell Count 3.6 X10^3/uL (4.5-11.0)
[2022-12-04 11:36] LABS: Alanine Aminotransferase 34 IU/L (<50); Albumin 4.1 g/dL (3.5-5.0); Albumin Globulin Ratio 1.1 (1.0-2.8); Alkaline Phosphatase 133 U/L (38-126); Aspartate Aminotransferase 66 IU/L (17-59); Bilirubin Total 0.7 mg/dL (0.2-1.3); Blood Urea Nitrogen 13 mg/dL (9-20); Calcium 9.1 mg/dL (8.4-10.2); Carbon Dioxide 26 mmol/L (22-32); Chloride 99 mmol/L (98-107); Estimated Glomerular Filt Rate > 60 mL/min (>60); Globulin 3.8 g/dL (1.7-4.1); Glucose 121 mg/dL (80-110); HEMOLYSIS < 15 (0-50); Potassium 4.5 mmol/L (3.4-5.1); Sodium 138 mmol/L (137-145); Total Protein 7.9 g/dL (6.3-8.2)
[2022-12-04 11:40] LABS: Hemoglobin A1C% w Est Avg Glu 5.7 % (4.0-6.0)
[2022-12-04 11:53] LABS: Vitamin D 25 Hydroxy (D3) < 12.8 ng/mL (30.0-100.0)
[2022-12-04 12:08] LABS: TSH w/ Reflex to FT4 2.94 uIU/mL (0.47-4.68)
[2022-12-04 12:11] LABS: Ferritin 16 ng/mL (18-464)
[2022-12-04 12:42] LABS: Folate 3.9 ng/mL (2.76-20.0); Vitamin B12 487 pg/mL (239-931)
[2022-12-04 13:01] LABS: HEMOLYSIS < 15 (0-50); Iron 25 ug/dL (49-181)
[2022-12-04 13:13] LABS: Percent Iron Saturation 6 % (20-50); Total Iron Binding Capacity 420 ug/dL (261-462); Transferrin 315 mg/dL (206-381)
== END ==
PROVIDERS: PCP Hospitalist; Visit Provider Family Medicine
DX: D50.9 Iron deficiency anemia, unspecified (principal); F10.10 Alcohol abuse, uncomplicated; D64.9 Anemia, unspecified; R29.6 Repeated falls; R54 Age-related physical debility; Z79.899 Other long term (current) drug therapy; E11.9 Type 2 diabetes mellitus without complications; I10 Essential (primary) hypertension; R17 Unspecified jaundice; R42 Dizziness and giddiness
CPT/HCPCS: 80053; 82306; 82607; 82728; 82746; 83036; 83540; 83550; 84443; 85025

== ENCOUNTER 2023-03-01 10:11 | Observation (INO) | payer OTHER, SELFPAY ==
[2023-03-01] VITALS (66 sets, daily range): BP systolic 115–175; BP diastolic 57–79; PULSE 72–87; RESP 13–43; TEMP 36.2–37.1; O2SAT 91–100; BMI 26.9
--- NOTE | 2023-03-01 10:32 | DI.RAD.S_ITS ---
PROCEDURE: XR CHEST 1V INDICATIONS: chest pain TECHNIQUE: One view of the chest was acquired. COMPARISON: [facility], , CHEST 1 VIEW, 12/12/2012, 16:16. FINDINGS: Surgical changes and devices: None. Lungs and pleura: Lungs are clear. No pleural effusions or pneumothorax. Mediastinum: Mediastinal contours appear normal. Heart size is normal. Bones and chest wall: No suspicious bony lesions. Overlying soft tissues appear unremarkable. IMPRESSION: No acute cardiopulmonary process. Dictated by: Rashawn Vieyra M.D. on 03/01/2023 at 11:10 Approved by: Rashawn Vieyra M.D. on 03/01/2023 at 11:10
--- NOTE | 2023-03-01 10:42 | ED.SOB ---
HPI - SOB/Dyspnea General Chief Complaint: Shortness of Breath/Dyspnea Stated Complaint: Worsening Short of Breath Time Seen by Provider: 03/01/23 10:42 Source: patient and family Mode of arrival: Wheelchair Limitations: no limitations Related Data Home Medications Medication Instructions Recorded Confirmed No Known Home Medications 03/01/23 03/01/23 Allergies Allergy/AdvReac Type Severity Reaction Status Date / Time No Known Drug Allergies Allergy Verified 03/01/23 10:26 Review of Systems Review of Systems ROS Unobtainable: All systems reviewed & are unremarkable except as noted in HPI and below Patient History Medical History (Updated 03/01/23 @ 10:55 by Noa Miller, BIJU) Diabetes Frequent falls Hypertension Non compliance w medication regimen Social History household members: significant other Smoking Status: Never smoker alcohol intake: current Smoking Status: Never smoker alcohol intake frequency: 0-2 drinks per day Alcohol type: wine Substance Use Type: does not use Exam Initial Vital Signs Initial Vital Signs: Vital Signs Temperature 97.8 F 03/01/23 10:29 Pulse Rate 74 03/01/23 10:29 Respiratory Rate 18 03/01/23 10:29 Blood Pressure 123/60 03/01/23 10:29 Pulse Oximetry 100 03/01/23 10:29 Oxygen Delivery Method Room Air 03/01/23 10:29 Course Orders Ordered: ED Orders 03/01/23 10:32 XR chest 1V Stat Complete Blood Count AUTO DIFF Stat Comprehensive Metabolic Panel Stat Ethanol (ETOH) Stat Lipase Stat Magnesium Stat PTT Partial Thromboplastin Kenji Stat Prothrombin Time INR Stat Troponin & CK Cardiac Panel Stat 03/01/23 10:54 COVID19 -Nasal RAPID Stat Vital Signs Vital signs: Vital Signs - 8 hr 03/01/23 10:29 Temperature 97.8 F Pulse Rate 74 Respiratory Rate 18 Blood Pressure 123/60 Pulse Oximetry 100 Oxygen Delivery Method Room Air MDM - SOB/Dyspnea Lab Data 03/01/23 10:47 03/01/23 10:47 Discharge Plan Departure Prescriptions: No Action No Known Home Medications
--- NOTE | 2023-03-01 10:56 | DI.CT.S_ITS ---
PROCEDURE: CT CERVICAL SPINE WO CON INDICATIONS: recurrent falls, etoh, shortness of breath TECHNIQUE: Noncontrast 3 mm thick sections acquired from the skull base to the T4 level. Sagittal and coronal reformats were then constructed. For radiation dose reduction, the following was used: automated exposure control, adjustment of mA and/or kV according to patient size. COMPARISON: [facility], CT, CT CERVICAL SPINE WO CON, 05/10/2021, 12:11. FINDINGS: Image quality: Excellent. Bones: No fractures or dislocations. Extensive cervical spondylosis with large prominent bridging osteophytes extending from C3 through the upper thoracic spine. If old well corticated C7 spinous process fracture. Visualized superior ribs are intact. Soft tissues: Prevertebral soft tissues are normal in thickness. No paravertebral hematomas. No apical pneumothoraces. IMPRESSION: 1. No evidence acute cervical fracture or dislocation. 2. Extensive cervical spondylitic change with bulky anterior flowing bridging osteophytes. Dictated by: Wm Savage M.D. on 03/01/2023 at 11:26 Approved by: Wm Savage M.D. on 03/01/2023 at 11:30
--- NOTE | 2023-03-01 10:56 | DI.CT.S_ITS ---
PROCEDURE: CT HEAD/BRAIN WO CON INDICATIONS: recurrent falls, etoh, shortness of breath TECHNIQUE: Noncontrast 4.5 mm thick angled axial sections acquired from the foramen magnum to the vertex, with coronal and sagittal reformats. For radiation dose reduction, the following was used: automated exposure control, adjustment of mA and/or kV according to patient size. COMPARISON: [facility], CT, CT HEAD/BRAIN WO CON, 05/10/2021, 12:11. FINDINGS: Image quality: Excellent. CSF spaces: Basal cisterns are patent. No extra-axial fluid collections. The ventricles are symmetric in size and shape. Brain: No intracranial bleeds or masses. There is cerebral volume loss for age, with resultant ventricular and sulcal prominence. There are periventricular and deep white matter chronic small vessel ischemic changes. There is intracranial internal carotid artery atherosclerosis. Skull and face: Calvarium and visualized facial bones appear intact, without suspicious lesions. Sinuses: Visualized sinuses and mastoids are clear. IMPRESSION: No acute intracranial pathology. Dictated by: Rashawn Vieyra M.D. on 03/01/2023 at 11:28 Approved by: Rashawn Vieyra M.D. on 03/01/2023 at 11:32
--- NOTE | 2023-03-01 10:57 | ED_ITS ---
HPI - SOB/Dyspnea General Chief Complaint: Shortness of Breath/Dyspnea Stated Complaint: Worsening Short of Breath Time Seen by Provider: 03/01/23 10:42 Source: patient and family Mode of arrival: Wheelchair Limitations: no limitations History of Present Illness HPI Narrative: This is a 77-year-old male with history of hypertension, dyslipidemia, diabetes type 2 and chronic alcohol abuse who is not currently taking any medications. Patient's family brings him as he has been falling a little bit more frequently this week and more short of breath. Patient states he came because his made him come. They both note he normally falls at least a couple times a week he has been stitched up several time he often refuses to come to the ER and his states they will sometimes use Steri-Strips. Patient has not had any known loss of consciousness from falls, they are unsure if he is hit his head recently. He does not have any complaints of headache he does have some neck discomfort he states chronically, he denies any back pain. He denies any chest pain. He has had shortness of breath he states for the past year he states been worse and slowly progressive. He notes mostly with exertion. He denies any orthopnea. He denies any new swelling in his lower extremities. He notes quite a bit of bruising on his arms and legs from his falls. He denies any abdominal back or flank pain. Patient does note he is had some black stools he is unclear about how long they have been going on but notes he had a colonoscopy sometime in the past year or 2. Patient denies diarrhea constipation, no urinary symptoms. Patient is not anticoagulant he does not take any aspirin him in his state that he was take medicine for hypertension oral medication for diabetes and possibly cholesterol and omeprazole. No known heart attacks or strokes in the past. Patient has stopped taking these medications. No prior surgeries. No tobacco. He does drink a bottle of wine daily, no illicit. He was seeing Keyla holiday and then another individual named Flores at the [facility] and saw them 3 weeks ago according to the patient and family. Related Data Previous Rx's Medication Instructions Recorded sodium,potassium,mag sulfates 17.5 See Rx Instructions PO .COMPLEX 03/01/23 gram-3.13 gram-1.6 gram oral soln #354 mL (Suprep Bowel Prep Kit) Allergies Allergy/AdvReac Type Severity Reaction Status Date / Time No Known Drug Allergies Allergy Verified 03/01/23 10:26 Review of Systems Review of Systems ROS Unobtainable: All systems reviewed & are unremarkable except as noted in HPI and below Patient History Medical History Diabetes Frequent falls Hypertension Non compliance w medication regimen Social History household members: other Smoking Status: Never smoker alcohol intake: current Smoking Status: Never smoker alcohol intake frequency: 0-2 drinks per day Alcohol type: wine Substance Use Type: does not use Exam Narrative Exam Narrative: GEN: Patient appears in mild distress. Pale. HEAD: No evidence of trauma, no raccoon/Duggan sign. NECK: Nontender, painless range of motion, trachea midline Positive Nexus criteria, there is no line tenderness, distracting injury, altered mental status, or neuro deficit, + recent reported EtOH. EYES: PERRLA, EOMI ENT: External inspection normal, trachea is midline, TM's are normal no hemotypanum, Nares are clear, no septal hematoma, no dental or oral injury, air way is normal and with normal occlusion, No bony tenderness RESP: Chest is nontender and has symmetric movement, no ecchymosis, breath sounds are normal no crackles, wheezes or rales, no tachypnea or accessory muscle use. Speaks in full sentences. CVS: Heart sounds are normal, no murmur noted, No JVD. ABG/GI: Nontender, soft, normal bowel sounds, no distention, no organomegaly, pelvic rock is negative. Stool occult is positive and he has melanotic stool on JAYME. No mass for bright red blood noted. NEURO: Oriented AOx3, neuro is grossly intact, sensation and motor is normal all 4 extremities moving, cranial nerves II through XII are intact, GCS is 15 PSYCH: Normal mood and affect SKIN: Intact, warm and dry, no crepitus and without decubitus BACK: No CVA tenderness, no vertebral tenderness, no step-off's, no crepitus EXT: Atraumatic, hips are nontender, no pedal edema, normal color and temperature, normal range of motion of extremities with normal tendon exam, 2+ pulses in all four extremities Initial Vital Signs Initial Vital Signs: Vital Signs Pulse Rate 84 03/01/23 10:20 Blood Pressure 123/60 03/01/23 10:20 Pulse Oximetry 100 03/01/23 10:20 Course Orders Ordered: ED Orders 03/01/23 10:32 XR chest 1V Stat 03/01/23 10:47 COVID19 -Nasal RAPID Stat Complete Blood Count AUTO DIFF Stat Comprehensive Metabolic Panel Stat Ethanol (ETOH) Stat Lipase Stat Magnesium Stat PRBC [Packed Cells] Stat PTT Partial Thromboplastin Kenji Stat Prothrombin Time INR Stat Troponin & CK Cardiac Panel Stat Type and Screen Stat 03/01/23 10:56 CT cervical spine wo con Stat CT head/brain wo con Stat 03/01/23 12:31 Consult to General Surgery Stat 03/01/23 12:43 Trop I [Troponin I] Stat Chlordiazepoxide HCl (Chlordiazepoxide 25 Mg Capsule) 50 mg PO Q8HR [facility] Last Admin: 03/01/23 15:45 Dose: 50 mg Documented By: FREDO Discontinued Medications Pantoprazole Sodium (Pantoprazole 40 Mg Vial) 80 mg IV NOW ONE Stop: 03/01/23 11:57 Last Admin: 03/01/23 12:18 Dose: 80 mg Documented By: FREDO Vital Signs Vital signs: Vital Signs - 8 hr 03/01/23 10:29 03/01/23 10:30 03/01/23 10:41 Temperature 97.8 F Pulse Rate 74 77 Respiratory Rate 18 22 Blood Pressure 123/60 140/63 Pulse Oximetry 100 100 Oxygen Delivery Method Room Air 03/01/23 10:41 03/01/23 10:45 03/01/23 10:45 Temperature Pulse Rate 79 79 Respiratory Rate 21 20 Blood Pressure 143/65 H Pulse Oximetry 98 100 Oxygen Delivery Method Room Air 03/01/23 11:00 03/01/23 11:00 03/01/23 11:15 Temperature Pulse Rate 81 80 Respiratory Rate 22 13 Blood Pressure 152/70 H Pulse Oximetry 100 100 Oxygen Delivery Method 03/01/23 11:30 03/01/23 11:45 03/01/23 12:26 Temperature 97.2 F L Pulse Rate 78 80 84 Respiratory Rate 19 26 H 14 Blood Pressure 132/59 L Pulse Oximetry 99 100 Oxygen Delivery Method 03/01/23 12:41 03/01/23 12:00 03/01/23 12:15 Temperature 97.6 F Pulse Rate 80 83 Respiratory Rate 16 26 H Blood Pressure 119/59 L 132/63 Pulse Oximetry 100 Oxygen Delivery Method 03/01/23 12:15 03/01/23 12:26 03/01/23 12:26 Temperature Pulse Rate 83 83 Respiratory Rate 23 31 H Blood Pressure 132/59 L Pulse Oximetry 100 99 Oxygen Delivery Method 03/01/23 12:30 03/01/23 12:30 03/01/23 12:45 Temperature Pulse Rate 79 Respiratory Rate 20 Blood Pressure 115/58 L 119/59 L Pulse Oximetry 99 Oxygen Delivery Method 03/01/23 12:45 03/01/23 13:00 03/01/23 13:00 Temperature Pulse Rate 83 81 Respiratory Rate 24 23 Blood Pressure 128/60 Pulse Oximetry 99 100 Oxygen Delivery Method Room Air MDM - SOB/Dyspnea Lab Data 03/01/23 10:47 03/01/23 10:47 Labs: Lab Results 03/01/23 03/01/23 03/01/23 Range/Units 10:47 10:47 10:47 WBC 4.1 L (4.5-11.0) X10^3/uL RBC 1.99 L (4.5-5.9) X10^6/uL Hgb 4.9 L* (13.5-17.5) g/dL Hct 16.0 L* (41-53) % MCV 80.1 (80-100) fL MCH 24.8 L (26-34) PG MCHC 31.0 (30-36) % RDW 19.7 H (11.6-14.8) % Plt Count 339 (150-400) X10^3/uL Neut % (Auto) 58.6 (50-75) % Lymph % (Auto) 25.4 (25-40) % [place] % (Auto) 13.3 (3-14) % Eos % (Auto) 1.3 L (2-4) % Baso % (Auto) 1.4 (0-2) % Neut # (Auto) 2400 (2114-6796) /uL Lymph # (Auto) 1000 L (8279-1805) /uL Kingman # (Auto) 500 (0-900) /uL Eos # (Auto) 100 (0-450) /uL Baso # (Auto) 100 (0-100) /uL PT 12.6 (10.1-12.7) SECONDS INR 1.1 (0.9-1.3) APTT 24 L (26-36) SECONDS Sodium 137 (137-145) mmol/L Potassium 4.2 (3.4-5.1) mmol/L Chloride 102 (98-107) mmol/L Carbon Dioxide 26 (22-32) mmol/L BUN 18 (9-20) mg/dL Creatinine 1.11 (0.66-1.25) mg/dL Estimated GFR > 60 (>60) mL/min BUN/Creatinine Ratio 16.2 (6-22) Glucose 132 H (80-110) mg/dL Calcium 8.4 (8.4-10.2) mg/dL Magnesium 2.0 (1.6-2.3) mg/dL Total Bilirubin 0.3 (0.2-1.3) mg/dL AST 59 (17-59) IU/L ALT 33 (<50) IU/L Alkaline Phosphatase 96 (38-126) U/L Total Creatine Kinase 41 L (55-170) U/L CK-MB (CK-2) TNP CK-MB (CK-2) Rel Index TNP Troponin I 0.044 H (0.01-0.034) ng/mL Total Protein 6.7 (6.3-8.2) g/dL Albumin 3.4 L (3.5-5.0) g/dL Globulin 3.3 (1.7-4.1) g/dL Albumin/Globulin Ratio 1.0 (1.0-2.8) Lipase 121 (23-300) U/L Ethyl Alcohol 11 H ( - 10) mg/dL SARS-CoV-2 (PCR) (Negative) Blood Type Antibody Screen Crossmatch 03/01/23 03/01/23 03/01/23 Range/Units 10:47 10:47 12:43 WBC (4.5-11.0) X10^3/uL RBC (4.5-5.9) X10^6/uL Hgb (13.5-17.5) g/dL Hct (41-53) % MCV (80-100) fL MCH (26-34) PG MCHC (30-36) % RDW (11.6-14.8) % Plt Count (150-400) X10^3/uL Neut % (Auto) (50-75) % Lymph % (Auto) (25-40) % Kingman % (Auto) (3-14) % Eos % (Auto) (2-4) % Baso % (Auto) (0-2) % Neut # (Auto) (8457-6595) /uL Lymph # (Auto) (0206-0724) /uL Kingman # (Auto) (0-900) /uL Eos # (Auto) (0-450) /uL Baso # (Auto) (0-100) /uL PT (10.1-12.7) SECONDS INR (0.9-1.3) APTT (26-36) SECONDS Sodium (137-145) mmol/L Potassium (3.4-5.1) mmol/L Chloride (98-107) mmol/L Carbon Dioxide (22-32) mmol/L BUN (9-20) mg/dL Creatinine (0.66-1.25) mg/dL Estimated GFR (>60) mL/min BUN/Creatinine Ratio (6-22) Glucose (80-110) mg/dL Calcium (8.4-10.2) mg/dL Magnesium (1.6-2.3) mg/dL Total Bilirubin (0.2-1.3) mg/dL AST (17-59) IU/L ALT (<50) IU/L Alkaline Phosphatase (38-126) U/L Total Creatine Kinase (55-170) U/L CK-MB (CK-2) CK-MB (CK-2) Rel Index Troponin I 0.041 H (0.01-0.034) ng/mL Total Protein (6.3-8.2) g/dL Albumin (3.5-5.0) g/dL Globulin (1.7-4.1) g/dL Albumin/Globulin Ratio (1.0-2.8) Lipase (23-300) U/L Ethyl Alcohol ( - 10) mg/dL SARS-CoV-2 (PCR) Negative (Negative) Blood Type A Positive Antibody Screen Negative Crossmatch See Detail Point of Care Testing Stool Occult Blood Positive Imaging Data Chest x-ray: Radiologist's Impression: [address] [address] XRay Report Signed Patient: Kanika Angela MR#: [id number] : 1945 Acct:[id number] Age/Sex: 77 / M Date of Service: 03/01/23 Loc: ED Accession Number: [id number] ?? Procedure: XR chest 1V Ordering Provider: Astrid Pulido D.O. PROCEDURE:? XR CHEST 1V ? INDICATIONS:? chest pain ? TECHNIQUE:? One view of the chest was acquired.? ? COMPARISON:? [facility], , CHEST 1 VIEW, 12/12/2012, 16:16. ? FINDINGS:? ? Surgical changes and devices:? None.? ? Lungs and pleura:? Lungs are clear.? No pleural effusions or pneumothorax.? ? Mediastinum:? Mediastinal contours appear normal.? Heart size is normal.? ? Bones and chest wall:? No suspicious bony lesions.? Overlying soft tissues appear unremarkable.? ? IMPRESSION:? No acute cardiopulmonary process. ? ? ? Dictated by: Rashawn Vieyra M.D. on 03/01/2023 at 11:10 ? ? Approved by: Rashawn Vieyra M.D. on 03/01/2023 at 11:10?? ECG Data Attestation: I personally reviewed and interpreted this ECG as follows: Prior ECG tracings: available for review Interpretation: NSR rate of 61, MS 132, QRS of 82, Qtc 404. No acute ST changes noted. Patient has prior from 12/12/2012 to appears similar to today. MDM Narrative Medical decision making narrative: This is a 77-year-old male who presents with increasing frequency of falls and shortness of breath both have been longstanding issues that have been slowly progressive according to patient and family. Patient does have history of hypertension diabetes and possibly dyslipidemia. Patient does drink a bottle of wine daily for a prolonged period of time. He and his indicate that he has not ever really stopped so they told us he goes through withdrawals but they do not describe any. Head and C-spine were ordered as patient has frequent falls he does have some complaint of neck pain and states he drinks a bottle of wine daily. He has been short of breath his vitals are appropriate here today initially in the department but he does appear pale, chest x-ray, lab work including CBC, CMP, troponin and BNP were ordered his symptoms are more exertional. Patient's hemoglobin today is 4, patient does have some microcytosis, hemoglobin was 8 in November of 2022 and was 12 in 2020. Patient has appropriate renal function electrolytes and liver function. Coags show a PTT of 24 normal INR. Troponin is 0.044 I suspect some demand secondary to his symptomatic anemia. ETOH is 11. Patient and note that he actually drinks 1-2 bottles of wine daily, he does not have any active withdrawal symptoms at this time but he is certainly high risk. Patient is COVID negative. Patient's stool occult is positive he is had melanotic stools for some time and suspected to have chronic GI bleed. Started on Protonix 80 mg, he is agreeable to transfusion. Vitals have been stable felt appropriate for inpatient admission. Spoke with Dr. Colón for hospitalist service. Who accepts asked that we give Librium 50 mg t.i.d. discussed patient does not appear to be in active withdrawal yet. Transfusing 2 units and patient has had Protonix 80 mg ordered. Discussed all talk with Dr. Dash from general surgery. Spoke with Dr. Dash, she will see patient agrees with plan for Protonix, transfusion and will see patient to determine when appropriate to scope. Critical Care Time Critical Care Time Critical Care Time: Yes Total Critical Care Time: 35 Attestation: The high probability of a clinically significant, sudden or life threatening deterioration of the [cardiac, pulm] system(s) required my full and direct attention, intervention and personal management. The aggregate critical care time was [35] minutes. This time is in addition to time spent performing reported procedures but includes the following: [x] Data Review and interpretation [x] Patient assessment and monitoring of vital signs [x] Documentation [x] Medication orders and management Discharge Plan Departure Patient Disposition: Admitted As Inpatient Clinical Impression: Symptomatic anemia, GI bleed Admit Date/Time: 03/01/23 13:02 Admit Provider: Roxanna Colón
[2023-03-01 11:03] LABS: Add Manual Diff / Slide Review NO; Basophils Absolute Auto 100 /uL (0-100); Basophils Percent Auto 1.4 % (0-2); Eosinophils Absolute Auto 100 /uL (0-450); Eosinophils Percent Auto 1.3 % (2-4); Lymphocytes Absolute Auto 1000 /uL (1100-4500); Lymphocytes Percent Auto 25.4 % (25-40); Mean Corpuscular Hemoglobin 24.8 PG (26-34); Mean Corpuscular Volume 80.1 fL (80-100); Monocytes Absolute Auto 500 /uL (0-900); Monocytes Percent Auto 13.3 % (3-14); Neutrophils Absolute Auto 2400 /uL (1500-7000); Neutrophils Percent Auto 58.6 % (50-75); Platelet Count 339 X10^3/uL (150-400); Red Blood Cell Count 1.99 X10^6/uL (4.5-5.9); Red Cell Distribution Width 19.7 % (11.6-14.8); White Blood Cell Count 4.1 X10^3/uL (4.5-11.0)
[2023-03-01 11:04] LABS: Hemoglobin 4.9 g/dL (13.5-17.5)
[2023-03-01 11:07] LABS: INR 1.1 (0.9-1.3); Prothrombin Time 12.6 SECONDS (10.1-12.7)
[2023-03-01 11:09] LABS: PTT Partial Thromboplastin Tim 24 SECONDS (26-36)
[2023-03-01 11:12] LABS: COVID19 -Nasal RAPID Negative (Negative)
[2023-03-01 11:19] LABS: Alanine Aminotransferase 33 IU/L (<50); Albumin 3.4 g/dL (3.5-5.0); Alkaline Phosphatase 96 U/L (38-126); Aspartate Aminotransferase 59 IU/L (17-59); BUN Creatinine Ratio 16.2 (6-22); Bilirubin Total 0.3 mg/dL (0.2-1.3); Blood Urea Nitrogen 18 mg/dL (9-20); Calcium 8.4 mg/dL (8.4-10.2); Carbon Dioxide 26 mmol/L (22-32); Chloride 102 mmol/L (98-107); Creatine Kinase 41 U/L (55-170); Estimated Glomerular Filt Rate > 60 mL/min (>60); Ethanol (ETOH) 11 mg/dL; Globulin 3.3 g/dL (1.7-4.1); Glucose 132 mg/dL (80-110); HEMOLYSIS < 15 (0-50); Lipase 121 U/L (23-300); Potassium 4.2 mmol/L (3.4-5.1); Sodium 137 mmol/L (137-145); Total Protein 6.7 g/dL (6.3-8.2)
[2023-03-01 11:30] LABS: Troponin I 0.044 ng/mL (0.01-0.034)
--- NOTE | 2023-03-01 12:09 | PC.NURSE ---
standby for hemocult. rectal exam
[2023-03-01] MEDS: PANTOPRAZOLE 40 MG VIAL 80 MG IV (12:18)
[2023-03-01 13:14] LABS: Troponin I 0.041 ng/mL (0.01-0.034)
[2023-03-01] MEDS: chlordiazePOXIDE 25 MG CAPSULE 50 MG PO ×2 (15:45→23:43)
--- NOTE | 2023-03-01 16:02 | P.HP_ITS ---
History of Present Illness History of Present Illness Chief complaint: Worsening Short of Breath Narrative: 77-year-old gentleman with diabetes mellitus type 2, hypertension, hyperlipidemia known colon polyps, known iron deficiency anemia and history of esophageal ulceration who presented to the emergency department with increasing weakness and shortness of breath. Patient notes he has had onset of decreasing energy and decreasing exercise tolerance over the past several months. States initially he just felt more fatigued. With baseline. He is a somewhat vague historian. He notes however over the past couple of weeks the symptoms have escalated. States he used to be able to walk up the flight of stairs in his home and now when he gets to the top he has to sit and rest due to shortness of breath and some lightheadedness. He does note he has had some falls over the last couple of weeks as well, which she attributes to feeling lightheaded prior. Denies any chest pain. He notes he has had black stool for quite some time. Initially he reports it was since his ?last colonoscopy ?which she reports was done here several months ago. However the last colonoscopy on file was August of 2021. He states the stool has been solid. No nausea or vomiting. No reflux symptoms. No abdominal pain. He is a lifelong nonsmoker. He has no known history of peptic ulcer disease. No GERD. Does drink 1-2 bottles of wine daily. In the emergency department, he has been stable with normal vital signs. Labs revealed a hemoglobin of 4.9, hematocrit of 16.0. Previous labs done at this facility December 04 revealed a hemoglobin of 8.2 and hematocrit of 27.0. Prior labs are from the spring and summer of 2020 and hemoglobin was in the 12- 12.3 range at that time. Colonoscopy performed in August of 2021 is incomplete with a lengthy, redundant, tortuous colon. There were colon polyps, suboptimal bowel prep. At that time, refused any further evaluation. At the time of seeing the patient in the emergency department, he is on his 2nd unit of packed red blood cells. A total of 3 units were ordered. He is somewhat reluctant to do a bowel prep, but is more receptive to doing Suprep than GoLYTELY. I advised I will arrange to send a prescription to his local pharmacy and his ex- can pick it up and bring it in and he could use that as his preferred bowel prep. He is receptive to that. He presently denies any chest pain, shortness breast, nausea, vomiting, abdominal pain, diarrhea, dizziness. [facility] Medical History Diabetes Frequent falls Hypertension Non compliance w medication regimen Social History household members: other Smoking Status: Never smoker alcohol intake: current Meds Home Medications and Allergies Home Medications Medication Instructions Recorded Confirmed Type No Known Home Medications 03/01/23 03/01/23 History Allergies Allergy/AdvReac Type Severity Reaction Status Date / Time No Known Drug Allergies Allergy Verified 03/01/23 10:26 Review of Systems Review of Systems Narrative: All other systems were reviewed negative Exam Vital Signs (past 8 hours): - 03/01/23 10:29 03/01/23 10:20 03/01/23 10:20 Temperature 97.8 F Pulse Rate 74 84 Respiratory Rate 18 Blood Pressure 123/60 123/60 Pulse Oximetry 100 100 Oxygen Delivery Method Room Air 03/01/23 10:30 03/01/23 10:41 03/01/23 10:41 Temperature Pulse Rate 77 79 Respiratory Rate 22 21 Blood Pressure 140/63 Pulse Oximetry 100 98 Oxygen Delivery Method Room Air 03/01/23 10:45 03/01/23 10:45 03/01/23 11:00 Temperature Pulse Rate 79 Respiratory Rate 20 Blood Pressure 143/65 H 152/70 H Pulse Oximetry 100 Oxygen Delivery Method 03/01/23 11:00 03/01/23 11:15 03/01/23 11:30 Temperature Pulse Rate 81 80 78 Respiratory Rate 22 13 19 Blood Pressure Pulse Oximetry 100 100 99 Oxygen Delivery Method 03/01/23 11:45 03/01/23 12:26 03/01/23 12:41 Temperature 97.2 F L 97.6 F Pulse Rate 80 84 80 Respiratory Rate 26 H 14 16 Blood Pressure 132/59 L 119/59 L Pulse Oximetry 100 Oxygen Delivery Method 03/01/23 12:00 03/01/23 12:15 03/01/23 12:15 Temperature Pulse Rate 83 83 Respiratory Rate 26 H 23 Blood Pressure 132/63 Pulse Oximetry 100 100 Oxygen Delivery Method 03/01/23 12:26 03/01/23 12:26 03/01/23 12:30 Temperature Pulse Rate 83 Respiratory Rate 31 H Blood Pressure 132/59 L 115/58 L Pulse Oximetry 99 Oxygen Delivery Method 03/01/23 12:30 03/01/23 12:45 03/01/23 12:45 Temperature Pulse Rate 79 83 Respiratory Rate 20 24 Blood Pressure 119/59 L Pulse Oximetry 99 99 Oxygen Delivery Method Room Air 03/01/23 13:00 03/01/23 13:00 03/01/23 13:15 Temperature Pulse Rate 81 Respiratory Rate 23 Blood Pressure 128/60 129/62 Pulse Oximetry 100 Oxygen Delivery Method 03/01/23 13:15 03/01/23 13:30 03/01/23 13:30 Temperature Pulse Rate 83 85 Respiratory Rate 19 21 Blood Pressure 123/57 L Pulse Oximetry 100 100 Oxygen Delivery Method Room Air 03/01/23 13:45 03/01/23 13:45 03/01/23 14:00 Temperature Pulse Rate 85 Respiratory Rate 23 Blood Pressure 123/59 L 139/62 Pulse Oximetry 100 Oxygen Delivery Method 03/01/23 14:00 03/01/23 14:15 03/01/23 14:15 Temperature Pulse Rate 87 83 Respiratory Rate 23 24 Blood Pressure 134/60 Pulse Oximetry 100 100 Oxygen Delivery Method 03/01/23 14:30 03/01/23 14:30 03/01/23 15:16 Temperature 97.8 F Pulse Rate 82 83 Respiratory Rate 21 20 Blood Pressure 131/63 148/65 H Pulse Oximetry 100 Oxygen Delivery Method Room Air 03/01/23 15:21 03/01/23 15:39 03/01/23 14:45 Temperature 97.9 F 97.8 F Pulse Rate 86 87 Respiratory Rate 20 20 Blood Pressure 143/60 H 135/64 146/58 H Pulse Oximetry Oxygen Delivery Method 03/01/23 14:45 03/01/23 15:00 03/01/23 15:00 Temperature Pulse Rate 84 84 Respiratory Rate 25 H 26 H Blood Pressure 140/64 Pulse Oximetry 100 100 Oxygen Delivery Method 03/01/23 15:15 03/01/23 15:15 03/01/23 15:21 Temperature Pulse Rate 83 Respiratory Rate 24 Blood Pressure 148/65 H 143/60 H Pulse Oximetry 99 Oxygen Delivery Method 03/01/23 15:21 03/01/23 15:30 03/01/23 15:30 Temperature Pulse Rate 85 85 Respiratory Rate 25 H 22 Blood Pressure 135/64 Pulse Oximetry 99 99 Oxygen Delivery Method Room Air Oxygen Delivery Method Room Air Narrative Exam Narrative: GEN: Pleasant elderly male, mildly pale, Alert and oriented x3, no acute distress HEENT: Normocephalic, face symmetric, pupils equal round reactive to light, extraocular movements intact, sclerae anicteric, conjunctiva clear but pale, nares patent, oropharynx reveals an intact soft and hard palate with moist mucous membranes, dentition is fair NECK: Supple, no lymphadenopathy, thyroid without enlargement or nodularity, carotids no bruits CHEST: Respiratory excursions symmetric, clear to auscultation bilaterally CV: Regular rate and rhythm, no murmurs, rubs, gallops, PMI nondisplaced ABD: Soft, nontender, nondistended, bowel sounds present in all 4 quadrants, no organomegaly or masses appreciated EXTR: Warm, well perfused, no clubbing/cyanosis/edema SKIN: Warm and dry, without rash NEURO: Alert and oriented x3, grossly intact PSYCH: Mood and affect is within normal limits, judgment and insight are appropriate Objective Labs 03/01/23 10:47 03/01/23 10:47 Labs: Laboratory Results - last 24 hr 03/01/23 03/01/23 03/01/23 10:47 10:47 10:47 WBC 4.1 L RBC 1.99 L Hgb 4.9 L* Hct 16.0 L* MCV 80.1 MCH 24.8 L MCHC 31.0 RDW 19.7 H Plt Count 339 Neut % (Auto) 58.6 Lymph % (Auto) 25.4 [place] % (Auto) 13.3 Eos % (Auto) 1.3 L Baso % (Auto) 1.4 Neut # (Auto) 2400 Lymph # (Auto) 1000 L [place] # (Auto) 500 Eos # (Auto) 100 Baso # (Auto) 100 PT 12.6 INR 1.1 APTT 24 L Sodium 137 Potassium 4.2 Chloride 102 Carbon Dioxide 26 BUN 18 Creatinine 1.11 Estimated GFR > 60 BUN/Creatinine Ratio 16.2 Glucose 132 H Calcium 8.4 Magnesium 2.0 Total Bilirubin 0.3 AST 59 ALT 33 Alkaline Phosphatase 96 Total Creatine Kinase 41 L CK-MB (CK-2) TNP CK-MB (CK-2) Rel Index TNP Troponin I 0.044 H Total Protein 6.7 Albumin 3.4 L Globulin 3.3 Albumin/Globulin Ratio 1.0 Lipase 121 Ethyl Alcohol 11 H SARS-CoV-2 (PCR) Blood Type Antibody Screen Crossmatch 03/01/23 03/01/23 03/01/23 10:47 10:47 12:43 WBC RBC Hgb Hct MCV MCH MCHC RDW Plt Count Neut % (Auto) Lymph % (Auto) [place] % (Auto) Eos % (Auto) Baso % (Auto) Neut # (Auto) Lymph # (Auto) [place] # (Auto) Eos # (Auto) Baso # (Auto) PT INR APTT Sodium Potassium Chloride Carbon Dioxide BUN Creatinine Estimated GFR BUN/Creatinine Ratio Glucose Calcium Magnesium Total Bilirubin AST ALT Alkaline Phosphatase Total Creatine Kinase CK-MB (CK-2) CK-MB (CK-2) Rel Index Troponin I 0.041 H Total Protein Albumin Globulin Albumin/Globulin Ratio Lipase Ethyl Alcohol SARS-CoV-2 (PCR) Negative Blood Type A Positive Antibody Screen Negative Crossmatch See Detail Assessment & Plan Assessment & Plan narrative: 1. Symptomatic anemia, likely acute on chronic blood-loss anemia Patient presents with symptomatic anemia with a hemoglobin of 4.9. His last hemoglobin was in the 8 range in November of this year. It was previously 12 in 2020. Suspect some chronic GI blood losses. He has received 1 of 3 units of packed red blood cells. Currently the 2nd unit is transfusing. Will monitor serial hemoglobins and hematocrit. 2. Probable chronic GI bleeding Patient was guaiac positive in the emergency department. Dr. Pulido noted there was melena on exam. Message left for Dr. Dash, on-call for General surgery. Anticipate he will be able to have a colonoscopy tomorrow. If so, will plan to initiate bowel prep this evening. Previous colonoscopy done in 2020 revealed suboptimal prep. 3. Alcohol dependence, at risk for withdrawal Patient drinks 1-2 bottles of wine daily. He did have an elevated alcohol level on arrival to the emergency department today. Will place on scheduled Librium 50 mg t.i.d. as well as the withdrawal protocol. 4. Diabetes mellitus type [address] on fingersticks and sliding scale. Controlled carb diet once colonoscopy has been accomplished 5. Hypertension Patient previously had discontinued his anti hypertensive medications. He is normotensive presently. Will monitor. 6. Gait instability/weakness He is had multiple recent falls, likely secondary to anemia. Will have PT and OT evaluate for gait safety. 7. 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 8. Elevated troponin Patient is asymptomatic from a cardiac perspective. Initial troponin was 0.044. On repeat it was down to 0.041. EKG reveals sinus rhythm without ST changes. Suspect a degree of demand ischemia. No further intervention planned Code status DNR DNI Prophylaxis Chemical prophylaxis contraindicated Disposition Admit to observation status. Hopeful he can have colonoscopy and potential discharge home tomorrow.
--- NOTE | 2023-03-01 16:11 | CM.IDA ---
Addendum entered by Palak Lerma 03/01/23 16:27: Per Hospitalist H&P, Dr. Colón to order OT and PT evals and patient to have colonoscopy tomorrow. MICHAEL Isbell Original Note: Initial DCP Assessment Patient is 77 y/o male who presents to due to concern for SOB and recent GLFs. Patient was brought in by former spouse as patient often declines to come to ED. Patient has been admitted to acute care due to concern for symptomatic Anemia and GI bleed. Patient is currently requiring a blood transfusion. Patient has hx of Hypertension, Dyslipidemia, Diabetes Type 2 and chronic ETOH use. Patient's PCP is Flores Joe NP at [facility] in [place], Patient has [employer] and [place] [employer] insurance. DISABILITIES SERVICES OFFICER enters room to meet with patient. Patient presents as A/Ox4. Patient acknowledges recent GLFs and states he has stairs at home and lives on a property with a slope. Patient endorses he ambulates independently without DME, patient endorses independence with ADLs and states he has access to DME if needed. Patient resides in [place] with former spouse. Patient reports that she cooks for him, patient endorses he drives his vehicle. Patient endorses he has local family as support if needed. Patient denies DCP needs at this time. Due to recent GLFs, patient may benefit from PT eval. Plan: Patient admitted to treat Anemia and GI bleed, DCP to f/u with any DCP needs, patient denies needs at this time. Patient likely to d/c to home with family upon medical stability. MICHAEL Isbell Discharge Planning/Care Management CM Discharge Assessment Start: 03/01/23 16:08 Freq: Status: Active Protocol: Document 03/01/23 16:08 LN (Rec: 03/01/23 16:11 LN [id number]) Discharge Planning Assessment Assigned Formation Fracturing Operator MICHAEL Cid Advance Directives? Yes Advance Directives on File No History Provided By Patient,Medical Record Has Patient been admitted in last 30 No days? Prior Living Arrangements House Household Members other Comment Patient lives at home with former spouse. Type of transportation used prior to Drives own vehicle admit Independent with ADL's Yes Is patient alert and oriented? Yes Comment Patient denies using DME but states he has DME at home. Transportation Arrangement Most likely ex- will provide transport upon d/c. Additional Comment Patient may benefit from PT eval, patient denies DCP needs at this time. Please Provide Date Initial DC 03/01/23 Assessment Was Performed
[2023-03-02] VITALS (54 sets, daily range): BP systolic 127–164; BP diastolic 57–82; PULSE 60–94; RESP 16–47; TEMP 35.8–36.6; O2SAT 95–100; BMI 26.9
[2023-03-02] MEDS: chlordiazePOXIDE 25 MG CAPSULE 50 MG PO ×3 (06:43→20:10)
[2023-03-02] MEDS: SODIUM CHLORIDE 0.9% 1,000 ML 100 ML IV ×2 (06:44→20:18)
[2023-03-02 07:20] LABS: Add Manual Diff / Slide Review NO; Basophils Absolute Auto 0 /uL (0-100); Basophils Percent Auto 1.1 % (0-2); Eosinophils Absolute Auto 100 /uL (0-450); Eosinophils Percent Auto 2.7 % (2-4); Hematocrit 22.5 % (41-53); Hemoglobin 7.2 g/dL (13.5-17.5); Lymphocytes Absolute Auto 900 /uL (1100-4500); Mean Corpuscular Hemoglobin 26.3 PG (26-34); Monocytes Absolute Auto 700 /uL (0-900); Monocytes Percent Auto 16.5 % (3-14); Neutrophils Absolute Auto 2500 /uL (1500-7000); Neutrophils Percent Auto 58.7 % (50-75); Platelet Count 286 X10^3/uL (150-400); Red Blood Cell Count 2.75 X10^6/uL (4.5-5.9); Red Cell Distribution Width 18.7 % (11.6-14.8); White Blood Cell Count 4.2 X10^3/uL (4.5-11.0)
[2023-03-02 07:34] LABS: BUN Creatinine Ratio 19.3 (6-22); Blood Urea Nitrogen 22 mg/dL (9-20); Calcium 8.2 mg/dL (8.4-10.2); Carbon Dioxide 28 mmol/L (22-32); Chloride 101 mmol/L (98-107); Estimated Glomerular Filt Rate > 60 mL/min (>60); Glucose 103 mg/dL (80-110); HEMOLYSIS < 15 (0-50); Magnesium 2.1 mg/dL (1.6-2.3); Potassium 3.7 mmol/L (3.4-5.1); Sodium 136 mmol/L (137-145)
[2023-03-02] MEDS: MULTIVITAMIN 1 TABLET 1 TAB PO (09:10)
[2023-03-02] MEDS: THIAMINE 100 MG TABLET PO (09:22)
[2023-03-02] MEDS: FOLIC ACID 1 MG TABLET PO (09:23)
[2023-03-02 14:30] LABS: Hematocrit 23.6 % (41-53); Hemoglobin 7.6 g/dL (13.5-17.5)
[2023-03-02] MEDS: POTASSIUM SULFATE PO (16:41)
[2023-03-02] MEDS: [UNRECOGNIZED DRUG - OTHER] PO (16:41)
[2023-03-02] MEDS: MAGNESIUM SULFATE PO (16:41)
[2023-03-02] MEDS: SODIUM SULFATE PO (16:41)
--- NOTE | 2023-03-02 17:15 | PT.IIE ---
Current Diagnoses Acute posthemorrhagic anemia (03/01/23) Surgery Performed Operation Date: 03/03/23 09:30 <No data on this case meets the specified criteria> Medical History (Last Reviewed 03/01/23 @ 11:01 by Astrid Pulido DO) Diabetes Frequent falls Hypertension Non compliance w medication regimen Physical Therapy Inpatient Evaluation/Re-Eval M1 PT/OT-IP Prior Functional Status Start: 03/02/23 17:22 Freq: NEEDED Status: Active Protocol: Document 03/02/23 17:15 DLM (Rec: 03/02/23 17:37 [facility] [id number]) Medical Review Prior Functional Status Medical History Reviewed Yes Diet/Fluid Consistency Regular Communication WFL Mobility and Gait Independent without a device, drives Activities of Daily Living and IADL's Independent, Ex- does a lot of the cooking Prior Functional Level (Other details) He lives on the main floor of the house and his Ex- and her live on the upper floor of the house. Social History Household Members family,other Living Arrangements House Number of Floors (Floors) Two Floors Number of Stairs To Enter/Railing? he can stay on main floor, no steps to enter Home Environment High Toilet,Walk in Shower Home Equipment Front Wheel Walker,Straight Cane Additional Social History Comment The FWW and cane belong to his Ex-, she used them after her knee surgery, Kanika has never used them M2 PT-IP Current Condition Start: 03/02/23 17:22 Freq: NEEDED Status: Active Protocol: Document 03/02/23 17:15 DLM (Rec: 03/02/23 17:37 [facility] [id number]) Physical Therapy Current Condition Current Condition Evaluation Date 03/02/23 Treatment Diagnosis GI bleed, anemia, decreased activity tolerance Onset Date 03/01/23 M3 PT-IP Subjective Start: 03/02/23 17:22 Freq: NEEDED Status: Active Protocol: Document 03/02/23 17:15 DLM (Rec: 03/02/23 17:37 [facility] [id number]) Subjective Physical Therapy Visit Type Type Initial Evaluation Visit Start Time 16:45 Visit Stop Time 17:15 Total Visit Minutes 30 Number of COMMERCIAL PARTS PROFESSIONAL Visits 0 Physical Therapy Visit Comments Patient Comments He reports he is feeling better. He reports he had some falls at home. Patient Goals Discharge home Therapy Pain Assessment Pain When Pain Assessed At Rest Pain Present Pain Present Denied Pain M4 PT-IP Mobility and Gait Start: 03/02/23 17:22 Freq: NEEDED Status: Active Protocol: Document 03/02/23 17:15 [facility] (Rec: 03/02/23 17:37 [facility] [id number]) PT-Bed Mobility Assessment Rolling Level of Assist Independent Supine to Sit Supine to Sit Minimal Assistance Sit to Supine Sit to Supine Independent Scooting Scooting to Edge of Bed Minimal Assistance Scooting Up and Down in Bed Independent PT-Transfer Assessment Sit to and From Stand Sit to and from Stand Standby Assistance,Use of Upper Extremities Equipment Transfer Assistive Device None Transfers Transfer Destination Bed,Bedside Commode Transfer Technique Stand Step Pivot Transfer Ability Level of Assist Standby Assistance,Use of Upper Extremities Comments Mobility Comments He uses the rail on the head of the bed to help him scoot up. Gait Assessment Gait Gait Assistance Required: Standby Assistance Distance (Feet) 50 Assistive Devices Assistive Device None Comments Gait Comments mild unsteadiness during gait but no loss of balance, no dizziness when up, he reports mild fatigue with activity and requested back to bed Stair Climbing Assessment Comments Stair Climbing Comments no stairs at home PT-Balance Assessment Sitting Balance and Reactions Static Sitting Balance Ability Normal Dynamic Sitting Balance Ability Normal Standing Balance and Reactions Static Standing Balance Ability Good Dynamic Standing Balance Ability Fair Device Used none M5 PT-IP Objective Assessments Start: 03/02/23 17:22 Freq: NEEDED Status: Active Protocol: Document 03/02/23 17:15 [facility] (Rec: 03/02/23 17:37 [facility] [id number]) Orientation Orientation/Cognition Level of Alertness Alert Orientation Name,Age,Birthday,Month,Date, Year,Day of Week,Place, Situation Language Function Ability No Deficits Noted Safety Awareness Understands Safety Issues Memory Description No Deficits Noted Comments cooperative and pleasant Gross Range of Motion Upper Extremity ROM Assessment Within Functional Limits Lower Extremity ROM Assessment Within Functional Limits Strength Upper Extremity Strength Assessment Within Functional Limits Lower Extremity Strength Assessment Within Functional Limits Coordination Assessment Gross Coordination Gross Coordination WNL Sensation Assessment Sensation Gross Sensation WNL Comments Sensation Comments he denies any numbness/ tingling, he reports his feet feel cold only Muscle Tone Muscle Tone WNL Yes M6 PT-IP Treatment Start: 03/02/23 17:22 Freq: NEEDED Status: Active Protocol: Document 03/02/23 17:15 DLM (Rec: 03/02/23 17:37 DL [id number]) Physical Therapy Treatment Education Education Provided Safety Other Treatments Other Treatment Performed pt is beginning his colon prep set up bedside commode for pt to use pt also used the urinal in standing this visit Pt set up with his liquids for dinnner once back in bed. M7 PT-IP Assessment and Plan Start: 03/02/23 17:22 Freq: NEEDED Status: Active Protocol: Document 03/02/23 17:15 DLM (Rec: 03/02/23 17:37 DL [id number]) PT Summary Assessment and Plan Potential Rehabilitation Potential Good Status of Condition at Evaluation Evolving Summary Impairments Balance,Bed Mobility,Transfers ,Gait,Activity Tolerance Assessment Summary Kanika is alert and resting in bed. He reports feeling better after getting two units of blood in ED. He is starting his colon prep for his colonscopy tomorrow. He was able to get out of bed with min assist, transfer on/ off bedside commode and ambulate in the room. No dizziness while up. He demonstrates mild unsteadiness during gait but no losses of balance. He has no sway in static standing. This is his first time out of bed. He reports having chronic neck problems and it was noted he has significant forward head. Assisted him with his IV pole during mobility. He is cooperative and pleasant during this therapy session. He can verbalize his needs. Will continue to progress his mobility and gait with therapy . His progression may be interupted tomorrow if he is out for his colonscopy but will follow-up as he is available. Will work towards his goal of discharge home when he is medically stable. Nursing reports he has one more unit of blood to be transfused today. Goals Bed Mobility Goal Independent Transfer Goal Independent Gait Goal Independent Gait Distance 150 feet Days to Meet Goals 5 Frequency of Treatment Frequency Of Treatment Once a Day Treatment Plan Physical Therapy Treatment Plan Bed Mobility Training,Transfer Training,Gait Training, Therapeutic Exercise,Balance Retraining,Discharge Planning, Neuromuscular Re-ed Other Recommendations and Next Treatment chart indicated pt has Focus colonoscopy scheduled for tomorrow Precautions Other Precautions hx of falls at home before this admit Hgb 7.6 and Hct 23.6 Recommendations To Nursing Amount of Assist Needed 1 Person Assist Discharge Recommendations PT Discharge Recommendations Home with Assistance Other Discharge Recommendations has some support from his Ex- who lives in the same house Equipment Needed for Home Before continue to assess Discharge Transportation Needs at Discharge Private Vehicle
--- NOTE | 2023-03-02 18:19 | PM.PN.1 ---
Subjective Subjective Interval history: 77-year-old gentleman with diabetes mellitus type 2, hypertension, hyperlipidemia known colon polyps, known iron deficiency anemia and history of esophageal ulceration who was admitted yesterday with symptomatic anemia with a hemoglobin of 4.9. He does also drink 1-2 bottles of wine daily. Patient receive 2 units of packed red blood cells yesterday. Hemoglobin has improved from 4.9-7.2. He reports he is feeling a bit better overall today. He is not having any lightheadedness, chest pain, shortness to breath. Due to his orders not being processed in the emergency department, his bowel prep was not initiated yesterday so will be initiated this evening. He is not passed any dark or tarry stools. Exam Vital Signs (past 8 hours): - 03/02/23 10:30 03/02/23 10:45 03/02/23 11:00 Temperature Pulse Rate 62 60 61 Respiratory Rate 21 20 21 Blood Pressure Pulse Oximetry 99 97 99 Oxygen Delivery Method Oxygen Flow Rate 03/02/23 11:15 03/02/23 11:25 03/02/23 11:25 Temperature Pulse Rate 62 72 Respiratory Rate 20 23 Blood Pressure 135/69 Pulse Oximetry 99 100 Oxygen Delivery Method Room Air Oxygen Flow Rate 03/02/23 12:46 03/02/23 17:29 03/02/23 16:00 Temperature 96.9 F L 96.5 F L 97.7 F Pulse Rate 74 81 73 Respiratory Rate 16 17 18 Blood Pressure 145/76 H 143/71 H 138/57 L Pulse Oximetry 99 95 Oxygen Delivery Method Oxygen Flow Rate 0 03/02/23 17:56 Temperature 97.8 F Pulse Rate 73 Respiratory Rate 18 Blood Pressure 140/68 Pulse Oximetry 95 Oxygen Delivery Method Oxygen Flow Rate Oxygen Delivery Method Room Air Oxygen Flow Rate 0 Narrative Exam Narrative: GEN: Pleasant elderly male, alert and oriented x 3, NAD HEENT:NC, Face symmetric CHEST: Respiratory excursions symmetric, CTAB CV: RRR, no M/R/G ABD: Soft, NT/ND, BT present in all 4 quadrants, no organomegaly or masses EXTR: warm, well perfused, no C/C/E SKIN: warm and dry, no rash NEURO: Alert and oriented x 3, nonfocal Objective Labs 03/02/23 14:25 03/02/23 07:03 Labs: Laboratory Results - last 24 hr 03/01/23 03/02/23 03/02/23 10:47 07:03 07:03 WBC 4.2 L RBC 2.75 L Hgb 7.2 L Hct 22.5 L MCV 82.0 MCH 26.3 MCHC 32.0 RDW 18.7 H Plt Count 286 Neut % (Auto) 58.7 Lymph % (Auto) 21.0 L [place] % (Auto) 16.5 H Eos % (Auto) 2.7 Baso % (Auto) 1.1 Neut # (Auto) 2500 Lymph # (Auto) 900 L [place] # (Auto) 700 Eos # (Auto) 100 Baso # (Auto) 0 Sodium 136 L Potassium 3.7 Chloride 101 Carbon Dioxide 28 BUN 22 H Creatinine 1.14 Estimated GFR > 60 BUN/Creatinine Ratio 19.3 Glucose 103 Calcium 8.2 L Magnesium Blood Type A Positive Antibody Screen Negative Crossmatch See Detail 03/02/23 03/02/23 07:03 14:25 WBC RBC Hgb 7.6 L Hct 23.6 L MCV MCH MCHC RDW Plt Count Neut % (Auto) Lymph % (Auto) [place] % (Auto) Eos % (Auto) Baso % (Auto) Neut # (Auto) Lymph # (Auto) [place] # (Auto) Eos # (Auto) Baso # (Auto) Sodium Potassium Chloride Carbon Dioxide BUN Creatinine Estimated GFR BUN/Creatinine Ratio Glucose Calcium Magnesium 2.1 Blood Type Antibody Screen Crossmatch [facility] Medical History Diabetes Frequent falls Hypertension Non compliance w medication regimen Social History household members: family and other Smoking Status: Never smoker alcohol intake: current Assessment & Plan Assessment & Plan narrative: 1. Symptomatic anemia, likely acute on chronic blood-loss anemia Patient presented with symptomatic anemia with a hemoglobin of 4.9.? His last hemoglobin was in the 8 range in November of this year.? It was previously 12 in 2020.? Suspect some chronic GI blood losses.? He received 2 units of packed red blood cells yesterday. Hemoglobin is up to 7.2. Given his underlying alcohol dependence, hypertension, elevated troponin, will give 1 additional unit of packed red blood cells today as goal hemoglobin would likely be above 8. 2. Probable chronic GI bleeding Patient was guaiac positive in the emergency department.? Dr. Pulido noted there was melena on exam.? Will initiate Suprep bowel prep this evening. Plan for colonoscopy tomorrow with Dr. Dash. 3. Alcohol dependence, at risk for withdrawal Patient drinks 1-2 bottles of wine daily.? He did have an elevated alcohol level on arrival to the emergency department yesterday. He remains on Librium 50 mg t.i.d.. His CIWA scores are 0. 4. Diabetes mellitus type 2 Not presently treated.? Blood sugars have been within normal range. 5. Hypertension Patient previously had discontinued his anti hypertensive medications.? Blood pressures are very my elevated. Will continue to monitor. 6. Gait instability/weakness He is had multiple recent falls, likely secondary to anemia.? PT evaluated today and felt he would be safe to go home with assistance. 7. 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 8. Elevated troponin Patient is asymptomatic from a cardiac perspective.? Initial troponin was 0.044.? On repeat it was down to 0.041.? EKG reveals sinus rhythm without ST changes.? Suspect a degree of demand ischemia.? No further intervention planned Code status DNR DNI Prophylaxis Chemical prophylaxis contraindicated Disposition Patient will undergo bowel prep tonight, colonoscopy tomorrow. If all is negative and he has no active bleeding, he will likely be able to discharge home tomorrow Quality VTE Deep Vein Thrombosis/Pulmonary Embolism Present on Admission: No
[2023-03-02] MEDS: PANTOPRAZOLE 40 MG VIAL IV (20:10)
[2023-03-03] VITALS (11 sets, daily range): BP systolic 98–166; BP diastolic 46–70; PULSE 61–88; RESP 12–21; TEMP 35.9–36.6; O2SAT 97–100
[2023-03-03] MEDS: SODIUM SULFATE PO (06:30)
[2023-03-03] MEDS: [UNRECOGNIZED DRUG - OTHER] PO (06:30)
[2023-03-03] MEDS: POTASSIUM SULFATE PO (06:30)
[2023-03-03] MEDS: MAGNESIUM SULFATE PO (06:30)
[2023-03-03] MEDS: chlordiazePOXIDE 25 MG CAPSULE 50 MG PO (06:31)
[2023-03-03 06:53] LABS: Add Manual Diff / Slide Review NO; Basophils Absolute Auto 100 /uL (0-100); Basophils Percent Auto 1.2 % (0-2); Eosinophils Absolute Auto 200 /uL (0-450); Eosinophils Percent Auto 5.1 % (2-4); Hematocrit 26.3 % (41-53); Hemoglobin 8.6 g/dL (13.5-17.5); Lymphocytes Absolute Auto 900 /uL (1100-4500); Lymphocytes Percent Auto 20.1 % (25-40); Mean Corpuscular HGB Conc 32.7 % (30-36); Mean Corpuscular Hemoglobin 26.8 PG (26-34); Monocytes Absolute Auto 700 /uL (0-900); Neutrophils Absolute Auto 2600 /uL (1500-7000); Neutrophils Percent Auto 58.6 % (50-75); Platelet Count 273 X10^3/uL (150-400); Red Blood Cell Count 3.21 X10^6/uL (4.5-5.9); Red Cell Distribution Width 17.6 % (11.6-14.8); White Blood Cell Count 4.4 X10^3/uL (4.5-11.0)
[2023-03-03 07:05] LABS: BUN Creatinine Ratio 19.4 (6-22); Blood Urea Nitrogen 18 mg/dL (9-20); Calcium 8.1 mg/dL (8.4-10.2); Carbon Dioxide 28 mmol/L (22-32); Chloride 104 mmol/L (98-107); Estimated Glomerular Filt Rate > 60 mL/min (>60); Glucose 89 mg/dL (80-110); HEMOLYSIS < 15 (0-50); Potassium 3.5 mmol/L (3.4-5.1); Sodium 138 mmol/L (137-145)
--- NOTE | 2023-03-03 08:51 | P.CONS_ITS ---
History of Present Illness Consult details Date Patient Seen: 03/03/23 Time Patient Seen: 08:51 Chief complaint: Worsening Short of Breath Reason for consult: anemia Requesting provider: Roxanna Colón Narrative: anemia and weakness. No pain or bright red blood per rectum. Meds Home Medications and Allergies Home Medications Medication Instructions Recorded Confirmed Type sodium,potassium,mag sulfates 17.5 See Rx Instructions PO .COMPLEX 03/01/23 Rx gram-3.13 gram-1.6 gram oral soln #354 mL (Suprep Bowel Prep Kit) Allergies Allergy/AdvReac Type Severity Reaction Status Date / Time No Known Drug Allergies Allergy Verified 03/01/23 10:26 Review of Systems Review of Systems ROS: Yes All systems reviewed with the patient and are negative except as otherwise documented Exam Vital Signs (past 8 hours): - 03/03/23 04:00 Temperature 97.8 F Pulse Rate 67 Respiratory Rate 21 Blood Pressure 116/54 L Pulse Oximetry 99 Oxygen Delivery Method Room Air Oxygen Flow Rate 0 Const General: cooperative Nutritional Appearance: average body habitus HENMT Head: normocephalic and atraumatic Neck Neck: trachea midline Cardio Rate: regular rate Rhythm: regular rhythm GI Palpation: soft Skin General: atrophy Neuro General: patient alert, patient awake and patient oriented x3 Psych Mental Status: mental status grossly normal Judgment: judgment good Objective Labs 03/03/23 06:27 03/03/23 06:27 Labs: Laboratory Results - last 24 hr 03/01/23 03/02/23 03/03/23 10:47 14:25 06:27 WBC 4.4 L RBC 3.21 L Hgb 7.6 L 8.6 L Hct 23.6 L 26.3 L MCV 82.0 MCH 26.8 MCHC 32.7 RDW 17.6 H Plt Count 273 Neut % (Auto) 58.6 Lymph % (Auto) 20.1 L [place] % (Auto) 15.0 H Eos % (Auto) 5.1 H Baso % (Auto) 1.2 Neut # (Auto) 2600 Lymph # (Auto) 900 L [place] # (Auto) 700 Eos # (Auto) 200 Baso # (Auto) 100 Sodium Potassium Chloride Carbon Dioxide BUN Creatinine Estimated GFR BUN/Creatinine Ratio Glucose Calcium Blood Type A Positive Antibody Screen Negative Crossmatch See Detail 03/03/23 06:27 WBC RBC Hgb Hct MCV MCH MCHC RDW Plt Count Neut % (Auto) Lymph % (Auto) Wise % (Auto) Eos % (Auto) Baso % (Auto) Neut # (Auto) Lymph # (Auto) Wise # (Auto) Eos # (Auto) Baso # (Auto) Sodium 138 Potassium 3.5 Chloride 104 Carbon Dioxide 28 BUN 18 Creatinine 0.93 Estimated GFR > 60 BUN/Creatinine Ratio 19.4 Glucose 89 Calcium 8.1 L Blood Type Antibody Screen Crossmatch [facility] Medical History Diabetes Frequent falls Hypertension Non compliance w medication regimen Social History household members: family and other Tobacco & Substance Use Smoking Status: Never smoker alcohol intake: current Assessment & Plan Assessment & Plan narrative: anemia EGD and colonoscopy with MAC COVID-19 COVID-19 status: Negative Time Spent With Patient Time with patient: less than 30 minutes
[2023-03-03] MEDS: LACTATED RINGERS 1,000 ML 42 ML IV (09:02)
--- NOTE | 2023-03-03 09:31 | PM.PN.1 ---
Subjective Subjective Interval history: 77-year-old gentleman with diabetes mellitus type 2, hypertension, hyperlipidemia known colon polyps, known iron deficiency anemia and history of esophageal ulceration who was admitted yesterday with symptomatic anemia with a hemoglobin of 4.9. He does also drink 1-2 bottles of wine daily. Patient receive 2 units of packed red blood cells if admission and an additional unit yesterday. Patient reports he is tired today. He did not sleep well last night. He tolerated his bowel prep difficulty. He is having any lightheadedness, chest pain shortness breath. He does not know if he is passing any dark or tarry stool. Exam Vital Signs (past 8 hours): - 03/03/23 04:00 03/03/23 08:56 03/03/23 08:00 Temperature 97.8 F 97.5 F L 96.7 F L Pulse Rate 67 71 65 Respiratory Rate 21 16 Blood Pressure 116/54 L 145/83 H 162/70 H Pulse Oximetry 99 99 100 Oxygen Delivery Method Room Air Oxygen Flow Rate 0 Oxygen Delivery Method Room Air Oxygen Flow Rate 0 Narrative Exam Narrative: GEN:? Pleasant elderly male, drowsy but oriented x 3, NAD HEENT:NC, Face symmetric CHEST: Respiratory excursions symmetric, CTAB CV: RRR, no M/R/G ABD: Soft, NT/ND, BT present in all 4 quadrants, no organomegaly or masses EXTR: warm, well perfused, no C/C/E SKIN: warm and dry, no rash NEURO: Drowsy but oriented x 3, nonfocal Objective Labs 03/03/23 06:27 03/03/23 06:27 Labs: Laboratory Results - last 24 hr 03/01/23 03/02/23 03/03/23 10:47 14:25 06:27 WBC 4.4 L RBC 3.21 L Hgb 7.6 L 8.6 L Hct 23.6 L 26.3 L MCV 82.0 MCH 26.8 MCHC 32.7 RDW 17.6 H Plt Count 273 Neut % (Auto) 58.6 Lymph % (Auto) 20.1 L [place] % (Auto) 15.0 H Eos % (Auto) 5.1 H Baso % (Auto) 1.2 Neut # (Auto) 2600 Lymph # (Auto) 900 L [place] # (Auto) 700 Eos # (Auto) 200 Baso # (Auto) 100 Sodium Potassium Chloride Carbon Dioxide BUN Creatinine Estimated GFR BUN/Creatinine Ratio Glucose Calcium Blood Type A Positive Antibody Screen Negative Crossmatch See Detail 03/03/23 06:27 WBC RBC Hgb Hct MCV MCH MCHC RDW Plt Count Neut % (Auto) Lymph % (Auto) [place] % (Auto) Eos % (Auto) Baso % (Auto) Neut # (Auto) Lymph # (Auto) [place] # (Auto) Eos # (Auto) Baso # (Auto) Sodium 138 Potassium 3.5 Chloride 104 Carbon Dioxide 28 BUN 18 Creatinine 0.93 Estimated GFR > 60 BUN/Creatinine Ratio 19.4 Glucose 89 Calcium 8.1 L Blood Type Antibody Screen Crossmatch [facility] Medical History Diabetes Frequent falls Hypertension Non compliance w medication regimen Social History household members: family and other Smoking Status: Never smoker alcohol intake: current Assessment & Plan Assessment & Plan narrative: 1. Symptomatic anemia, likely acute on chronic blood-loss anemia Patient presented with symptomatic anemia with a hemoglobin of 4.9.? His last hemoglobin was in the 8 range in November of this year.? It was previously 12 in 2020.? Suspect some chronic GI blood losses.? He received 2 units of packed red blood cells on the date of admission with improvement of his hemoglobin to 7.2 yesterday. Given his underlying alcohol dependence, hypertension, elevated troponin, he was given 1 additional unit of packed red blood cells. Hemoglobin is significantly improved at 8.6 today. He is symptomatically improved as well. 2. Probable chronic GI bleeding Patient was guaiac positive in the emergency department.? Dr. Pulido noted there was melena on exam.? He completed bowel overnight. He is NPO for EGD/colonoscopy today. 3. Alcohol dependence, at risk for withdrawal Patient drinks 1-2 bottles of wine daily.? He did have an elevated alcohol level on arrival to the emergency department yesterday.? He remains on Librium 50 mg b.i.d..? His CIWA scores are 0. 4. Diabetes mellitus type 2 Not presently treated.? Blood sugars have been within normal range. 5. Hypertension Patient previously had discontinued his anti hypertensive medications.? Blood pressures are mildly elevated. He should consider following up with his PCP to consider re-initiation of antihypertensive therapy. 6. Gait instability/weakness He is had multiple recent falls, likely secondary to anemia.? PT evaluated today and felt he would be safe to go home with assistance. 7. Leukopenia Mild and stable. 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 8. Elevated troponin Patient is asymptomatic from a cardiac perspective.? Initial troponin was 0.044.? On repeat it was down to 0.041.? EKG reveals sinus rhythm without ST changes.? Suspect a degree of demand ischemia.? No further intervention planned Code status DNR DNI Prophylaxis Chemical prophylaxis contraindicated Disposition Possible discharge home later today if no active bleeding noted on endoscopy. Quality VTE Deep Vein Thrombosis/Pulmonary Embolism Present on Admission: No
--- NOTE | 2023-03-03 09:44 | PM.OP.EC ---
Operative Date/Time/Diagnoses Date of procedure: 03/03/23 Time of procedure: 09:44 Pre-op diagnosis: Anemia Post-op diagnosis: same Procedure & Clinicians Study performed: EGD and colonoscopy under MAC Same procedure as scheduled: Yes Indications: Anemia Surgeon: Leticia Dash Procedure Notes Procedure in detail: Preop diagnosis: Anemia Postop diagnosis: Same Operative procedure: EGD and colonoscopy under MAC Surgeon: Viki Dash MD Findings: No obvious bleeding source no acute bleeding in the GI tract observed. EGD shows [id number] size hiatal hernia. Colonoscopy demonstrated descending colon diverticulosis large and moderate size, cecum visualized from a distance without evidence of mass or blood. Procedure: Patient placed supine. Anesthetic was provided. Scope was inserted into the esophagus with insufflation I entered into the stomach identified the pylorus and intubate into the duodenum. Insufflation and extraction of the scope including retroflex had the above findings. Colonoscopy: Rectal exam shows normal tone no masses. Colonoscope inserted into the rectum advanced to the ascending colon with minimal difficulty. Insufflation extraction of the scope including retroflex in the rectum had the above findings. Impression: No obvious bleeding source. [id number] hiatal hernia. Descending colon diverticulosis. Plan: Repeat colonoscopy based on clinical condition in the future. Findings: diverticulosis and hiatal hernia Specimen(s): none sent Complications: none Impression: No bleeding source. diverticulosis of sigmoid and moderate to large hiatal hernia Repeat colonoscopy based on clinical condition. Post-procedure Recommendations: Reflux diet, High fiber diet and Continue medication(s) Follow up: as needed Disposition: PACU
--- NOTE | 2023-03-03 10:15 | SUR.PHASEI ---
Patient transferred to the floor by stretcher and he was able to transfer himself to the bed with minimal assist. IV saline locked, the erythema had receded. Report given to Lynn Smith
--- NOTE | 2023-03-03 16:15 | PC.NURSE ---
pt up in chair this am alarmed and npo waiting for scope-bowel prep done.-report after scope no signs or sx of bleeding orders to dc home. pt alarmed and using call light appropriately at this time. discharge home with family, verbal and written instructions given.
--- NOTE | 2023-03-04 19:09 | P.DS_ITS ---
History of Present Illness History of Present Illness Chief complaint: Worsening Short of Breath Narrative: 77-year-old gentleman with diabetes mellitus type 2, hypertension, hyperlipidemia known colon polyps, known iron deficiency anemia and history of esophageal ulceration who presented to the emergency department with increasing weakness and shortness of breath. Patient notes he has had onset of decreasing energy and decreasing exercise tolerance over the past several months. States initially he just felt more fatigued. With baseline. He is a somewhat vague historian. He notes however over the past couple of weeks the symptoms have escalated. States he used to be able to walk up the flight of stairs in his home and now when he gets to the top he has to sit and rest due to shortness of breath and some lightheadedness. He does note he has had some falls over the last couple of weeks as well, which she attributes to feeling lightheaded prior. Denies any chest pain. He notes he has had black stool for quite some time. Initially he reports it was since his ?last colonoscopy ?which she reports was done here several months ago. However the last colonoscopy on file was August of 2021. He states the stool has been solid. No nausea or vomiting. No reflux symptoms. No abdominal pain. He is a lifelong nonsmoker. He has no known history of peptic ulcer disease. No GERD. Does drink 1-2 bottles of wine daily. In the emergency department, he has been stable with normal vital signs. Labs revealed a hemoglobin of 4.9, hematocrit of 16.0. Previous labs done at this facility December 04 revealed a hemoglobin of 8.2 and hematocrit of 27.0. Prior labs are from the spring and summer of 2020 and hemoglobin was in the 12- 12.3 range at that time. Colonoscopy performed in August of 2021 is incomplete with a lengthy, redundant, tortuous colon. There were colon polyps, suboptimal bowel prep. At that time, refused any further evaluation. At the time of seeing the patient in the emergency department, he is on his 2nd unit of packed red blood cells. A total of 3 units were ordered. He is somewhat reluctant to do a bowel prep, but is more receptive to doing Suprep than GoLYTELY. I advised I will arrange to send a prescription to his local pharmacy and his ex- can pick it up and bring it in and he could use that as his preferred bowel prep. He is receptive to that. He presently denies any chest pain, shortness breast, nausea, vomiting, abdominal pain, diarrhea, dizziness. Discharge Providers Provider Date of admission: 03/01/23 13:02 Discharge Date: 03/03/23 Consults: 03/01/23 12:31 Consult to General Surgery Stat Comment: Consulting Provider: Leticia Dash Reason for consultation: gi bleed, symptomatic anemia Has provider been notified: Yes 03/02/23 06:25 Consult to Occupational Therapy Evaluate & Treat Comment: Physician Instructions: Evaluate and treat Consult to Physical Therapy Evaluate & Treat Comment: Physician Instructions: Evaluate and Treat 03/02/23 16:15 Consult to Web Content Editor Routine Comment: Discharge provider: Roxanna Colón MD Summary Hospital Course Discharge Diagnosis: 1. Symptomatic anemia, likely acute on chronic blood-loss anemia 2. Probable chronic GI bleeding 3. Alcohol dependence, at risk for withdrawal 4. Diabetes mellitus type 2 5. Hypertension 6. Gait instability/weakness 7. Leukopenia 8. Elevated troponin Hospital Course: 77-year-old gentleman with diabetes mellitus type 2, hypertension, hyperl ipidemia known colon polyps, known iron deficiency anemia and history of esophageal ulceration who was admitted yesterday with symptomatic anemia with a hemoglobin of 4.9.? He does also drink 1-2 bottles of wine daily.? Patient receive 2 units of packed red blood cells if admission and an additional unit on 03/02/23 w/good effect. His anemia symptoms improved. He underwent EGD/colonoscopy on 03/03/23 w/no active bleeding identified. He reported feeling ready to go home and was in stable condition at the time of discharge. Status at Discharge Cognitive/behavioral status at discharge: at baseline, oriented Time Spent with Patient Time spent: Less than 30 minutes Exam Vital Signs (past 8 hours): Oxygen Delivery Method Room Air Oxygen Flow Rate 0 Narrative Exam Narrative: GEN:? Pleasant elderly male, drowsy but oriented x 3, NAD HEENT:NC, Face symmetric CHEST: Respiratory excursions symmetric, CTAB CV: RRR, no M/R/G ABD: Soft, NT/ND, BT present in all 4 quadrants, no organomegaly or masses EXTR: warm, well perfused, no C/C/E SKIN: warm and dry, no rash NEURO:? Drowsy but oriented x 3, nonfocal Objective Labs 03/03/23 06:27 03/03/23 06:27 PFSH Medical History Diabetes Frequent falls Hypertension Non compliance w medication regimen Social History household members: family and other Smoking Status: Never smoker alcohol intake: current Discharge Plan Discharge Plan Patient Disposition: Home Provider Discharge Comment: Your upper and lower scopes done today revealed just a moderate to large hiatal hernia on the upper scope and diverticulosis on the colonoscopy. There was no evidence of bleeding. It is possible you had bleeding prior to admission that resolved and now shows no evidence for it. You received 3 units of blood and your Hemoglobin has improved from 4.9 when you came in to 8.6 today. Normal is above 13.5. You are still anemic and iron deficient. I recommend you take an iron supplement twice daily (it may constipate you a bit and make your stool dark). Please return to the ED for inability to hold down food/liquids, black or tarry stool, bloody or maroon colored stool or vomiting anything that looks like coffe e grounds. Discharge orders & Medications Prescriptions: New sodium,potassium,mag sulfates [Suprep Bowel Prep Kit] 17.5-3.13-1.6 gram recon soln See Rx Instructions .ROUTE .COMPLEX Qty: 354 0RF Rx Instructions: DILUTE; drink full amount early evening before AND next morning at least 2 hr before procedure; follow w 32 oz. water folic acid 1 mg Tablet 1 mg PO DAILY Qty: 30 0RF thiamine mononitrate (vit B1) 100 mg Tablet 100 mg PO DAILY Qty: 30 0RF multivitamin with folic acid [Tab-A-Shirley] 400 mcg Tablet 1 tab PO DAILY Qty: 30 0RF ferrous gluconate 324 mg (38 mg iron) tablet 324 mg PO BID Qty: 60 0RF Visit Report/Discharge Packet Stand Alone Forms: Patient Portal/API, Stroke Signs & Symptoms Discharges patient from system. Discharge Date/Time: 03/03/23 15:45 Quality VTE Deep Vein Thrombosis/Pulmonary Embolism Present on Admission: No
== END 2023-03-03 15:45 | disposition home or self-care (01) | DRG 812 ==
LOC: ED 12:16 → AC 14:19
PROVIDERS: Surgery; Admitting Provider Family Medicine; Emergency Provider Emergency Medicine; Visit Provider Family Medicine
PROC: 0DJ08ZZ Inspection of Upper Intestinal Tract, Via Natural or Artificial Opening Endoscopic (ICD-10-PCS; CPT 43235; principal; 2023-03-03 09:30)
PROC: 0DJD8ZZ Inspection of Lower Intestinal Tract, Via Natural or Artificial Opening Endoscopic (ICD-10-PCS; CPT 45378; 2023-03-03 09:30)
DX: D62 Acute posthemorrhagic anemia (principal); K92.2 Gastrointestinal hemorrhage, unspecified; F10.20 Alcohol dependence, uncomplicated; E11.9 Type 2 diabetes mellitus without complications; R26.89 Other abnormalities of gait and mobility; I10 Essential (primary) hypertension; R77.8 Other specified abnormalities of plasma proteins; Y90.0 Blood alcohol level of less than 20 mg/100 ml; Z66 Do not resuscitate; Z20.822 Contact with and (suspected) exposure to COVID-19; K44.9 Diaphragmatic hernia without obstruction or gangrene; K57.30 Diverticulosis of large intestine without perforation or abscess without bleeding
CPT/HCPCS: 43235; 45378; 36415; 36430; 70450; 71045; 72125; 80048; 80053; 80320; 81003; 82272; 82550; 82962; 83690; 83735; 84484; 85014; 85018; 85025; 85610; 85730; 86850; 86900; 86901; 87635; 93005; 96374; 97162; 99231; 99285; 99291; C9803; G0378; P9016; C9113; J2704

== ENCOUNTER 2023-03-08 10:36 | Inpatient (IN) | payer MEDICARE, OTHER, SELFPAY ==
[2023-03-02 15:48] VITALS: BMI 26.9
[2023-03-08] VITALS (25 sets, daily range): BP systolic 143–179; BP diastolic 63–89; PULSE 61–78; RESP 20–31; TEMP 36.4–36.6; O2SAT 96–100; BMI 25.3
--- NOTE | 2023-03-08 10:47 | DI.RAD.S_ITS ---
PROCEDURE: XR CHEST 1V INDICATIONS: Shortness of breath TECHNIQUE: One view of the chest was acquired. COMPARISON: [facility], CR, XR CHEST 1V, 03/01/2023, 10:46. FINDINGS: Surgical changes and devices: None. Lungs and pleura: Lungs are clear. No pleural effusions or pneumothorax. Mediastinum: Mediastinal contours appear normal. Heart size is normal. Bones and chest wall: No suspicious bony lesions. Overlying soft tissues appear unremarkable. IMPRESSION: No evidence acute pulmonary process. Dictated by: Wm Savage M.D. on 03/08/2023 at 11:04 Approved by: Wm Savage M.D. on 03/08/2023 at 11:05
--- NOTE | 2023-03-08 11:13 | ED_ITS ---
HPI - General Adult General Chief complaint: Shortness of Breath/Dyspnea Stated complaint: SOB/weak/coughing Time Seen by Provider: 03/08/23 11:04 Source: patient and family Mode of arrival: Wheelchair History of Present Illness HPI narrative: Patient is a 77-year-old male. Recently admitted to the hospital for GI bleed. Received multiple units of packed red blood cells. Had an upper endoscopy and lower colonoscopy. No specific source of the bleed was found. Was subsequently discharged home. Was seen by Physical therapy. Family at bedside states that they felt that he was too weak to go home from the hospital when he was disc harged and since that time he has been mostly sitting at home. Requiring both his and daughter to help him get up to even go to the bathroom. He has been having to wear briefs at home because he can not make it to the bathroom in time. He reports no specific pain just weakness. Describes an in both his upper and lower extremities. Has not had any alcohol to drink in approximately 2 weeks since before he was admitted to the hospital. He has been taking his medications. Has not been vomiting. Related Data Home Medications Medication Instructions Recorded Confirmed atorvastatin 20 mg tablet 20 mg PO BEDTIME 03/08/23 03/08/23 chlorthalidone 25 mg tablet 25 mg PO DAILY 03/08/23 03/08/23 lisinopril 40 mg tablet 40 mg PO DAILY 03/08/23 03/08/23 metformin 1,000 mg tablet 1,000 mg PO QAM 03/08/23 03/08/23 omeprazole 20 mg capsule,delayed 20 mg PO DAILY 03/08/23 03/08/23 release potassium chloride 10 mEq 10 meq PO QAM 03/08/23 03/08/23 capsule,extended release Previous Rx's Medication Instructions Recorded sodium,potassium,mag sulfates 17.5 See Rx Instructions PO .COMPLEX 03/01/23 gram-3.13 gram-1.6 gram oral soln #354 mL (Suprep Bowel Prep Kit) ferrous gluconate 324 mg (38 mg 324 mg PO BID #60 tabs 03/03/23 iron) tablet folic acid 1 mg tablet 1 mg PO DAILY #30 tabs 03/03/23 multivitamin with folic acid 400 1 tab PO DAILY #30 tabs 03/03/23 mcg tablet (Tab-A-Shirley) thiamine mononitrate (vit B1) 100 100 mg PO DAILY #30 tabs 03/03/23 mg tablet Allergies Allergy/AdvReac Type Severity Reaction Status Date / Time No Known Drug Allergies Allergy Verified 03/08/23 11:28 Review of Systems Review of Systems ROS Unobtainable: All systems reviewed & are unremarkable except as noted in HPI and below Patient History Medical History Diabetes Frequent falls Hypertension Non compliance w medication regimen Social History household members: family and other Smoking Status: Never smoker alcohol intake: current Smoking Status: Never smoker alcohol intake frequency: other Alcohol type: wine Substance Use Type: does not use Exam Initial Vital Signs Initial Vital Signs: Vital Signs Temperature 98 F 03/08/23 10:52 Pulse Rate 72 03/08/23 10:52 Respiratory Rate 28 H 03/08/23 10:52 Blood Pressure 147/70 H 03/08/23 10:52 Pulse Oximetry 100 03/08/23 10:52 Oxygen Delivery Method Room Air 03/08/23 10:52 Const General: cooperative and No disheveled HENMT Head: normal to inspection and normocephalic Resp Effort & Inspection: normal respiratory effort Auscultation: clear to auscultation bilaterally Cardio Rate: regular rate Rhythm: regular rhythm GI Inspection: normal to inspection and non-distended Palpation: soft Skin General: no rashes or lesions noted Neuro General: patient alert, patient awake and moves all extremities Extrem General: normal to inspection and capillary refill normal Course Orders Ordered: ED Orders 03/08/23 10:45 EKG-12 Lead Stat 03/08/23 10:47 XR chest 1V Stat 03/08/23 11:10 COVID19 -Nasal RAPID Stat Complete Blood Count AUTO DIFF Stat Comprehensive Metabolic Panel Stat Lactate (Lactic Acid) Stat NT-proBNP (BNP-Adult 18+) Stat Prothrombin Time INR Stat Troponin I Stat 03/08/23 12:38 Consult to Physical Therapy Evaluate & Treat Acetaminophen (Acetaminophen 325 Mg Tablet) 650 mg PO Q6H PRN PRN Reason: Fever/Mild Pain (1-3) Atorvastatin Calcium (Atorvastatin 20 Mg Tablet) 20 mg PO BEDTIME SAMANTHA Chlorthalidone (Chlorthalidone 25 Mg Tablet) 25 mg PO DAILY SAMANTHA Dextrose (Dextrose 50 % In Water 25 Gm/50 Ml Syringe) 25 gm IV PRN PRN PRN Reason: Hypoglycemia Enoxaparin Sodium (Enoxaparin 40 Mg/0.4 Ml Syringe) 40 mg SUBCUT DAILY [facility] Last Admin: 03/08/23 15:20 Dose: 40 mg Documented By: SB Ferrous Sulfate (Ferrous Sulfate 325 Mg Tablet) 325 mg PO BID [facility] Folic Acid (Folic Acid 1 Mg Tablet) 1 mg PO DAILY [facility] Sodium Chloride (Normal Saline 0.9%) 1,000 mls @ 100 mls/hr IV CONT SAMANTHA Stop: 03/09/23 02:59 Last Admin: 03/08/23 15:21 Dose: 100 mls/hr Documented By: SB Insulin Human Lispro (Insulin Lispro 100 Unit/Ml 3ml Vial) 0 unit SUBCUT ACHS [facility]; Protocol Lisinopril (Lisinopril 20 Mg Tablet) 40 mg PO DAILY [facility] Melatonin (Melatonin 3 Mg Tablet) 6 mg PO BEDTIME PRN PRN Reason: Insomnia Multivitamins (Multivitamin 1 Tablet) 1 tab PO DAILY [facility] Naloxone HCl (Naloxone 0.4 Mg/Ml Vial) 0.2 mg IV Q2MIN PRN PRN Reason: Opiate Reversal Pantoprazole Sodium (Pantoprazole Dr 20 Mg Tablet) 20 mg PO 0600 [facility] Polyethylene Glycol (Polyethylene Glycol 3350 17 Gm Powd.Pack) 17 gm PO DAILY PRN PRN Reason: Constipation Potassium Chloride (Potassium Chloride 10 Meq Tab) 10 meq PO DAILYCC [facility] Sennosides (Sennosides 8.6 Mg Tablet) 8.6 mg PO BID PRN PRN Reason: Constipation Thiamine HCl (Thiamine 100 Mg Tablet) 100 mg PO DAILY [facility] Vital Signs Vital signs: Vital Signs - 8 hr 03/08/23 10:52 03/08/23 11:39 03/08/23 11:45 Temperature 98 F Pulse Rate 72 64 66 Respiratory Rate 28 H 24 26 H Blood Pressure 147/70 H Pulse Oximetry 100 100 100 Oxygen Delivery Method Room Air Room Air 03/08/23 12:00 03/08/23 12:01 03/08/23 12:01 Temperature Pulse Rate 64 66 Respiratory Rate 31 H 23 Blood Pressure 144/65 H Pulse Oximetry 99 99 Oxygen Delivery Method 03/08/23 12:15 03/08/23 12:30 03/08/23 12:31 Temperature Pulse Rate 65 61 63 Respiratory Rate 25 H 21 28 H Blood Pressure Pulse Oximetry 99 100 99 Oxygen Delivery Method 03/08/23 12:31 03/08/23 12:45 03/08/23 13:00 Temperature Pulse Rate 64 Respiratory Rate 22 Blood Pressure 160/70 H 160/72 H Pulse Oximetry 99 Oxygen Delivery Method 03/08/23 13:00 03/08/23 13:15 03/08/23 13:30 Temperature Pulse Rate 64 64 64 Respiratory Rate 24 23 26 H Blood Pressure Pulse Oximetry 99 98 97 Oxygen Delivery Method 03/08/23 13:31 03/08/23 13:31 03/08/23 13:45 Temperature Pulse Rate 63 66 Respiratory Rate 24 Blood Pressure 168/72 H Pulse Oximetry 96 100 Oxygen Delivery Method 03/08/23 14:00 03/08/23 14:01 03/08/23 14:01 Temperature Pulse Rate 70 73 Respiratory Rate Blood Pressure 179/82 H Pulse Oximetry 98 99 Oxygen Delivery Method 03/08/23 14:15 03/08/23 14:30 03/08/23 14:31 Temperature Pulse Rate 78 70 69 Respiratory Rate 23 26 H 26 H Blood Pressure Pulse Oximetry 98 99 99 Oxygen Delivery Method 03/08/23 14:31 Temperature Pulse Rate Respiratory Rate Blood Pressure 143/65 H Pulse Oximetry Oxygen Delivery Method Medical Decision Making Medical Records Medical records reviewed: Yes I reviewed the patient's medical records. Lab Data Lab results reviewed: Yes I reviewed the patient's lab results. 03/08/23 11:10 03/08/23 11:10 Labs: Lab Results 03/08/23 03/08/23 03/08/23 Range/Units 11:10 11:10 11:10 WBC 4.7 (4.5-11.0) X10^3/uL RBC 3.41 L (4.5-5.9) X10^6/uL Hgb 9.3 L (13.5-17.5) g/dL Hct 28.7 L (41-53) % MCV 84.2 (80-100) fL MCH 27.2 (26-34) PG MCHC 32.3 (30-36) % RDW 19.1 H (11.6-14.8) % Plt Count 279 (150-400) X10^3/uL Neut % (Auto) 51.8 (50-75) % Lymph % (Auto) 27.8 (25-40) % [place] % (Auto) 14.9 H (3-14) % Eos % (Auto) 4.0 (2-4) % Baso % (Auto) 1.5 (0-2) % Neut # (Auto) 2400 (2946-8065) /uL Lymph # (Auto) 1300 (1874-6126) /uL [place] # (Auto) 700 (0-900) /uL Eos # (Auto) 200 (0-450) /uL Baso # (Auto) 100 (0-100) /uL PT 12.6 (10.1-12.7) SECONDS INR 1.1 (0.9-1.3) Sodium 138 (137-145) mmol/L Potassium 4.0 (3.4-5.1) mmol/L Chloride 102 (98-107) mmol/L Carbon Dioxide 29 (22-32) mmol/L BUN 17 (9-20) mg/dL Creatinine 1.09 (0.66-1.25) mg/dL Estimated GFR > 60 (>60) mL/min BUN/Creatinine Ratio 15.6 (6-22) Glucose 102 (80-110) mg/dL Lactate (0.7-2.1) mmol/L Calcium 9.1 (8.4-10.2) mg/dL Total Bilirubin 0.6 (0.2-1.3) mg/dL AST 46 (17-59) IU/L ALT 34 (<50) IU/L Alkaline Phosphatase 105 (38-126) U/L Troponin I 0.021 (0.01-0.034) ng/mL NT-Pro-B Natriuret Pep 372 (<450) pg/mL Total Protein 7.5 (6.3-8.2) g/dL Albumin 3.7 (3.5-5.0) g/dL Globulin 3.8 (1.7-4.1) g/dL Albumin/Globulin Ratio 1.0 (1.0-2.8) SARS-CoV-2 (PCR) (Negative) 03/08/23 03/08/23 Range/Units 11:10 11:10 WBC (4.5-11.0) X10^3/uL RBC (4.5-5.9) X10^6/uL Hgb (13.5-17.5) g/dL Hct (41-53) % MCV (80-100) fL MCH (26-34) PG MCHC (30-36) % RDW (11.6-14.8) % Plt Count (150-400) X10^3/uL Neut % (Auto) (50-75) % Lymph % (Auto) (25-40) % [place]on % (Auto) (3-14) % Eos % (Auto) (2-4) % Baso % (Auto) (0-2) % Neut # (Auto) (1473-4407) /uL Lymph # (Auto) (1751-9742) /uL Harmon # (Auto) (0-900) /uL Eos # (Auto) (0-450) /uL Baso # (Auto) (0-100) /uL PT (10.1-12.7) SECONDS INR (0.9-1.3) Sodium (137-145) mmol/L Potassium (3.4-5.1) mmol/L Chloride (98-107) mmol/L Carbon Dioxide (22-32) mmol/L BUN (9-20) mg/dL Creatinine (0.66-1.25) mg/dL Estimated GFR (>60) mL/min BUN/Creatinine Ratio (6-22) Glucose (80-110) mg/dL Lactate 1.1 (0.7-2.1) mmol/L Calcium (8.4-10.2) mg/dL Total Bilirubin (0.2-1.3) mg/dL AST (17-59) IU/L ALT (<50) IU/L Alkaline Phosphatase (38-126) U/L Troponin I (0.01-0.034) ng/mL NT-Pro-B Natriuret Pep (<450) pg/mL Total Protein (6.3-8.2) g/dL Albumin (3.5-5.0) g/dL Globulin (1.7-4.1) g/dL Albumin/Globulin Ratio (1.0-2.8) SARS-CoV-2 (PCR) Negative (Negative) Urine Dip Bedside Urine Glucose Negative Bedside Urine Bilirubin - Negative Bedside Urine Ketone - Negative Urine Specific Maple 1.015 Bedside Urine Occult Blood - Negative Bedside Urine pH 5.5 Bedside Urine Protein - Negative Bedside Urine Urobilinogen - Negative Bedside Urine Nitrite - Negative Bedside Urine Leukocytes - Negative Esterase Point of care testing: Urine Dip Bedside Urine Glucose Negative Bedside Urine Bilirubin - Negative Bedside Urine Ketone - Negative Urine Specific Maple 1.015 Bedside Urine Occult Blood - Negative Bedside Urine pH 5.5 Bedside Urine Protein - Negative Bedside Urine Urobilinogen - Negative Bedside Urine Nitrite - Negative Bedside Urine Leukocytes - Negative Esterase Imaging Data Chest x-ray: Radiologist's Impression: PROCEDURE:? XR CHEST 1V ? INDICATIONS:? Shortness of breath ? TECHNIQUE:? One view of the chest was acquired.? ? COMPARISON:? [facility], CR, XR CHEST 1V, 03/01/2023, 10:46. ? FINDINGS:? ? Surgical changes and devices:? None.? ? Lungs and pleura:? Lungs are clear.? No pleural effusions or pneumothorax.? ? Mediastinum:? Mediastinal contours appear normal.? Heart size is normal.? ? Bones and chest wall:? No suspicious bony lesions.? Overlying soft tissues a ppear unremarkable.? ? IMPRESSION:? No evidence acute pulmonary process. ECG Data Interpretation: Sinus rhythm Ventricular rate is 70 Normal QRS Normal QTC Normal axis No ST T wave changes MDM Narrative Medical decision making narrative: Recent admission to the hospital for a GI bleed and anemia. He is slightly anemic today but not at the level that would require transfusion. Has no signs of infection. Patient has been weak and not having much movement at home. He does get short of breath on exertion but is not short of breath when he is just lying in his chair. No fevers. Physical therapy evaluated the patient. Was significantly weak with them. Unable to stand on his own. Requiring quite a bit of help even with sitting up. Patient not safe to be discharged home. I did discuss the case with Dr. Benjamin on-call for hospitalist service who will admit for further evaluation and treatment. Discharge Plan Departure Patient Disposition: Admitted as Observation Clinical Impression: Adult failure to thrive, Anemia Admit Date/Time: 03/08/23 14:39 Admit Provider: Kaz Benjamin
[2023-03-08 11:20] LABS: Add Manual Diff / Slide Review NO; Basophils Absolute Auto 100 /uL (0-100); Basophils Percent Auto 1.5 % (0-2); Eosinophils Absolute Auto 200 /uL (0-450); Hematocrit 28.7 % (41-53); Hemoglobin 9.3 g/dL (13.5-17.5); Lymphocytes Absolute Auto 1300 /uL (1100-4500); Lymphocytes Percent Auto 27.8 % (25-40); Mean Corpuscular HGB Conc 32.3 % (30-36); Mean Corpuscular Hemoglobin 27.2 PG (26-34); Mean Corpuscular Volume 84.2 fL (80-100); Monocytes Absolute Auto 700 /uL (0-900); Monocytes Percent Auto 14.9 % (3-14); Neutrophils Absolute Auto 2400 /uL (1500-7000); Neutrophils Percent Auto 51.8 % (50-75); Platelet Count 279 X10^3/uL (150-400); Red Blood Cell Count 3.41 X10^6/uL (4.5-5.9); Red Cell Distribution Width 19.1 % (11.6-14.8); White Blood Cell Count 4.7 X10^3/uL (4.5-11.0)
[2023-03-08 11:29] LABS: INR 1.1 (0.9-1.3); Prothrombin Time 12.6 SECONDS (10.1-12.7)
[2023-03-08 11:33] LABS: COVID19 -Nasal RAPID Negative (Negative)
[2023-03-08 11:34] LABS: Alanine Aminotransferase 34 IU/L (<50); Albumin 3.7 g/dL (3.5-5.0); Alkaline Phosphatase 105 U/L (38-126); Aspartate Aminotransferase 46 IU/L (17-59); BUN Creatinine Ratio 15.6 (6-22); Bilirubin Total 0.6 mg/dL (0.2-1.3); Blood Urea Nitrogen 17 mg/dL (9-20); Calcium 9.1 mg/dL (8.4-10.2); Carbon Dioxide 29 mmol/L (22-32); Chloride 102 mmol/L (98-107); Estimated Glomerular Filt Rate > 60 mL/min (>60); Globulin 3.8 g/dL (1.7-4.1); Glucose 102 mg/dL (80-110); HEMOLYSIS < 15 (0-50); Lactate (Lactic Acid) 1.1 mmol/L (0.7-2.1); Sodium 138 mmol/L (137-145); Total Protein 7.5 g/dL (6.3-8.2)
[2023-03-08 11:45] LABS: NT-proBNP (BNP-Adult 18+) 372 pg/mL (<450); Troponin I 0.021 ng/mL (0.01-0.034)
--- NOTE | 2023-03-08 14:51 | DI.ECHO.S_ITS ---
[facility] +---------+ : : [address] [place] [address] : : : : [id number] : : : : Phone: [phone]+ Echocardiogram Report + + :Name: NORRIS CHO Study Date: 03/09/2023 Height: 71.5 in: :[facility] ReadingLocation: Weight: 192 lb : : Gender: Male BSA: 2.1 m2 : :: 1945 Age: 77 yrs BP: 109/57 mmHg: :Reason For Study: EXERTIONAL DYSPNEA HR: 74 : :Ordering Physician: JOHN, : :KATHY Portillo Performed By: CORINE LANE : :Referring: KATHY LOPEZ : + + Interpretation Summary Technically difficult study. 1) Normal left ventricular thickness, size, and systolic function (EF 55-60%). 2) Normal right ventricular size and function. 3) Aortic valve is calcific but couldn't be evaluated for aortic stenosis due to limited acoustic windows. Visually, there doesn't appear to be severe stenosis. 4) No prior Echo available for comparison. Procedure: A two-dimensional transthoracic echocardiogram with color flow and Doppler was performed. The study quality was technically difficult. Most of the acoustic windows were suboptimal, but the best imaging was obtained from the subcostal window. There is no prior echocardiogram noted for this patient. The patient was in normal sinus rhythm during the exam. Left Ventricle: The left ventricle is grossly normal size. Left ventricular wall thickness is normal. The left ventricular ejection fraction is grossly normal. The ejection fraction is estimated to be 55-60%. Regional wall motion abnormalities cannot be excluded due to limited visualization. Right Ventricle: The right ventricle grossly appears normal in size with probable normal systolic function. Atria: The left atrium is not well visualized. Right atrium not well visualized secondary to technical limitations. There is no Doppler evidence for an interatrial shunt. Mitral Valve: There is mild mitral annular calcification. There is no mitral regurgitation noted. Aortic Valve: The aortic valve is not well visualized. The aortic valve is mildly calcified. Tricuspid Valve: The tricuspid valve is not well visualized. There is a trace or physiologic amount of tricuspid regurgitation. Pulmonic Valve: The pulmonic valve is not well visualized. Great Vessels: The aortic root is not well visualized but is probably normal size. The ascending aorta could not be visualized. The IVC is of normal diameter and collapses greater than 50% with a sniff. This suggests a low right atrial pressure of 3 mm Hg. Pericardium/ Pleura There is a trivial pericardial effusion noted. There is no pleural effusion. MMode/2D Measurements & Calculations LVIDd: 3.4 cm LVOT diam: 1.8 cm LVIDs: 2.8 cm Ao root diam: 3.2 cm FS: 19.4 % IVSd: 1.0 cm LVPWd: 0.85 cm LV patton. diameter/BSA (cm/m^2): 1.6 LV sys. diameter/BSA (cm/m^2): 1.3 IVC diam: 1.7 cm Doppler Measurements & Calculations MV E max jamie: 41.3 cm/sec PA V2 max: 89.4 cm/sec MV A max jamie: 43.0 cm/sec PA V2 mean: 71.6 cm/sec MV E/A: 0.96 PA mean P.2 mmHg Med Peak E' Jamie: 5.5 cm/sec PA pr(Accel): 44.7 mmHg E/E' med: 7.5 Lat Peak E' Jamie: 6.9 cm/sec E/E' lat: 6.0 E/e' average: 6.8 MV dec time: 0.19 sec Reading Physician:01:54 PM
--- NOTE | 2023-03-08 14:55 | PM.HP.1 ---
History of Present Illness History of Present Illness Chief complaint: SOB/weak/coughing Narrative: Kanika Angela is a 77yo M with PMH of GI bleed, DM2, HTN, HLD, frequent falls, and alcohol dependence who presents with 1 month of dyspnea, weakness and fatigue. Patient says for the past month he has had rhinorrhea, dry cough and congestion as well as progressive SOB on exertion, weakness and inability to walk. He normally walks around his apartment but hasn't walked at all in the past week due to weakness. He denies CP, abd pain, NV, diarrhea, LE swelling or fever/chills. Patient states he is a DNR and has a polst at home. He says his appetite has been good and that he hasn't been losing weight. He has a history of falls but hasn't fallen recently. Patient drinks alcohol daily but denies any recent withdrawals PFSH Medical History Diabetes Frequent falls Hypertension Non compliance w medication regimen Social History household members: other Smoking Status: Never smoker alcohol intake: current Meds Home Medications and Allergies Home Medications Medication Instructions Recorded Confirmed Type sodium,potassium,mag sulfates 17.5 See Rx Instructions PO .COMPLEX 03/01/23 03/08/23 Rx gram-3.13 gram-1.6 gram oral soln #354 mL (Suprep Bowel Prep Kit) ferrous gluconate 324 mg (38 mg 324 mg PO BID #60 tabs 03/03/23 03/08/23 Rx iron) tablet folic acid 1 mg tablet 1 mg PO DAILY #30 tabs 03/03/23 03/08/23 Rx multivitamin with folic acid 400 1 tab PO DAILY #30 tabs 03/03/23 03/08/23 Rx mcg tablet (Tab-A-Shirley) thiamine mononitrate (vit B1) 100 100 mg PO DAILY #30 tabs 03/03/23 03/08/23 Rx mg tablet atorvastatin 20 mg tablet 20 mg PO BEDTIME 03/08/23 03/08/23 History chlorthalidone 25 mg tablet 25 mg PO DAILY 03/08/23 03/08/23 History lisinopril 40 mg tablet 40 mg PO DAILY 03/08/23 03/08/23 History metformin 1,000 mg tablet 1,000 mg PO QAM 03/08/23 03/08/23 History omeprazole 20 mg capsule,delayed 20 mg PO DAILY 03/08/23 03/08/23 History release potassium chloride 10 mEq 10 meq PO QAM 03/08/23 03/08/23 History capsule,extended release Allergies Allergy/AdvReac Type Severity Reaction Status Date / Time No Known Drug Allergies Allergy Verified 03/08/23 11:28 Review of Systems Review of Systems Narrative: All other systems reviewed with the patient and are negative unless otherwise stated. Exam Vital Signs (past 8 hours): - 03/08/23 10:52 03/08/23 11:39 03/08/23 11:45 Temperature 98 F Pulse Rate 72 64 66 Respiratory Rate 28 H 24 26 H Blood Pressure 147/70 H Pulse Oximetry 100 100 100 Oxygen Delivery Method Room Air Room Air 03/08/23 12:00 03/08/23 12:01 03/08/23 12:01 Temperature Pulse Rate 64 66 Respiratory Rate 31 H 23 Blood Pressure 144/65 H Pulse Oximetry 99 99 Oxygen Delivery Method 03/08/23 12:15 03/08/23 12:30 03/08/23 12:31 Temperature Pulse Rate 65 61 63 Respiratory Rate 25 H 21 28 H Blood Pressure Pulse Oximetry 99 100 99 Oxygen Delivery Method 03/08/23 12:31 03/08/23 12:45 03/08/23 13:00 Temperature Pulse Rate 64 Respiratory Rate 22 Blood Pressure 160/70 H 160/72 H Pulse Oximetry 99 Oxygen Delivery Method 03/08/23 13:00 03/08/23 13:15 03/08/23 13:30 Temperature Pulse Rate 64 64 64 Respiratory Rate 24 23 26 H Blood Pressure Pulse Oximetry 99 98 97 Oxygen Delivery Method 03/08/23 13:31 03/08/23 13:31 03/08/23 13:45 Temperature Pulse Rate 63 66 Respiratory Rate 24 Blood Pressure 168/72 H Pulse Oximetry 96 100 Oxygen Delivery Method 03/08/23 14:00 03/08/23 14:01 03/08/23 14:01 Temperature Pulse Rate 70 73 Respiratory Rate Blood Pressure 179/82 H Pulse Oximetry 98 99 Oxygen Delivery Method 03/08/23 14:15 03/08/23 14:30 04/14/23 14:31 Temperature Pulse Rate 78 70 69 Respiratory Rate 23 26 H 26 H Blood Pressure Pulse Oximetry 98 99 99 Oxygen Delivery Method 03/08/23 14:31 Temperature Pulse Rate Respiratory Rate Blood Pressure 143/65 H Pulse Oximetry Oxygen Delivery Method Oxygen Delivery Method Room Air Narrative Exam Narrative: GEN: no acute distress, elderly male HEENT: moist mucous membranes, PERRL NECK: trachea midline, no JVD CV: regular rate and rhythm, no murmurs PULM: clear bilaterally ABD: soft, nontender, nondistended, no organomegaly EXT: warm and well perfused with no edema NEURO: awake, alert, oriented, no focal deficits Objective Labs 03/08/23 11:10 03/08/23 11:10 Labs: Laboratory Results - last 24 hr 03/08/23 03/08/23 03/08/23 11:10 11:10 11:10 WBC 4.7 RBC 3.41 L Hgb 9.3 L Hct 28.7 L MCV 84.2 MCH 27.2 MCHC 32.3 RDW 19.1 H Plt Count 279 Neut % (Auto) 51.8 Lymph % (Auto) 27.8 [place] % (Auto) 14.9 H Eos % (Auto) 4.0 Baso % (Auto) 1.5 Neut # (Auto) 2400 Lymph # (Auto) 1300 [place] # (Auto) 700 Eos # (Auto) 200 Baso # (Auto) 100 PT 12.6 INR 1.1 Sodium 138 Potassium 4.0 Chloride 102 Carbon Dioxide 29 BUN 17 Creatinine 1.09 Estimated GFR > 60 BUN/Creatinine Ratio 15.6 Glucose 102 Lactate Calcium 9.1 Total Bilirubin 0.6 AST 46 ALT 34 Alkaline Phosphatase 105 Troponin I 0.021 NT-Pro-B Natriuret Pep 372 Total Protein 7.5 Albumin 3.7 Globulin 3.8 Albumin/Globulin Ratio 1.0 SARS-CoV-2 (PCR) 03/08/23 03/08/23 11:10 11:10 WBC RBC Hgb Hct MCV MCH MCHC RDW Plt Count Neut % (Auto) Lymph % (Auto) [place] % (Auto) Eos % (Auto) Baso % (Auto) Neut # (Auto) Lymph # (Auto) [place] # (Auto) Eos # (Auto) Baso # (Auto) PT INR Sodium Potassium Chloride Carbon Dioxide BUN Creatinine Estimated GFR BUN/Creatinine Ratio Glucose Lactate 1.1 Calcium Total Bilirubin AST ALT Alkaline Phosphatase Troponin I NT-Pro-B Natriuret Pep Total Protein Albumin Globulin Albumin/Globulin Ratio SARS-CoV-2 (PCR) Negative Assessment & Plan Assessment & Plan narrative: # progressive dyspnea and weakness -patient states he can no longer walk due to weakness and exertional shortness of breath, notes 1 month of runny nose, dry cough and congestion which may be viral related. Or possibly anemia versus deconditioning. -PT/OT eval -echo ordered -pending on echo may warrant inpatient nuclear stress test # normocytic anemia with history of previous GI bleed -hemoglobin 9.3, MCV normal -patient notes colonoscopy recently but he does not remember the results -patient denies melena or hematochezia -monitor for bleeding # type 2 diabetes -hold home metformin and initiate low-dose sliding scale insulin # hypertension -continue home lisinopril and chlorthalidone # hyperlipidemia -continue home Lipitor # GERD -continue home PPI Code status is DNR. COVID negative. DVT prophylaxis with Lovenox. Proxy is daughter. I have reviewed home meds and used all available resources to reconcile the home meds. This patient will be admitted as observation and will require less than 2 midnights of hospital time to treat dyspnea and weakness.
[2023-03-08 15:16] LABS: Ethanol (ETOH) < 10 mg/dL
[2023-03-08 15:16] LABS: Magnesium 1.8 mg/dL (1.6-2.3)
[2023-03-08] MEDS: ENOXAPARIN 40 MG/0.4 ML SYRINGE SUBCUT (15:20)
[2023-03-08] MEDS: SODIUM CHLORIDE 0.9% 1,000 ML 100 ML IV (15:21)
--- NOTE | 2023-03-08 16:07 | CM.IDA ---
Initial DCP Assessment Patient is 77 y/o male who presents to with family due to concern for weakness, Anemia,inability to ambulate & recent falls since d/c on 03/04/23. Patient was admitted to from 03/01/23-03/04/23 for anemia, colonoscopy, weakness and GI bleed. Patient passed PT on 03/03/23. Per patient's former spouse and daughter, patient has required 2 person assist for transfers, unsteady gait and unable to manage ADLs. Patient was independent with ADLs at baseline prior to recent hospitalization. Patient has hx of Hypertension, Dyslipidemia, Diabetes Type 2 and chronic ETOH use. Patient's PCP is Flores Joe NP at [facility] in [place], Patient has [employer] and [employer] insurance. This RIGGING MAN met with patient in the ED on 03/01/23 for DCP assessment. Today patient presents as fatigued, weak and with obvious visual decompensation in comparison. Patient presents as A/Ox3, present in room with patient is patient's former spouse who lives in home as well as patient's daughter who lives across the street. It was reported that prior to patient's hospitalization patient was able to manage all ADLs and drive independently. At patient's current baseline, he requires assistance with most ADLs and has not driven due to his weakness. It is reported that patient has wheelchair, FWW, and cane at home but does not use them. Family reports that patient has chair lift that they have been using to assist patient. It is reported that ex spouse and daughter are not always available to meet patient needs due to their availability. RIGGING MAN discusses HH vs. SNF rehab. RIGGING MAN also discusses in home caregivers with patient and family. Patient adamantly endorses preference of d/c to home with HH, no preference for agency other than who can start services the soonest. Daughter and former spouse are in support of SNF rehab for patient, but patient disagrees at this time. RIGGING MAN provides family and patient with Medicare choice list, senior resource guide and list of caregivers. Patient was seen by PT and SNF rehab is recommended, due to concern for patient's balance. Plan: patient admitted to acute care, PT to continue to evaluate patient. DCP to f/u with patient and family regarding POC. At this time preference for patient is HH. Family to review caregiver resources as well. HH vs. SNF rehab MICHAEL Isbell Discharge Planning/Care Management CM Discharge Assessment Start: 03/08/23 15:59 Freq: Status: Active Protocol: Document 03/08/23 16:00 LN (Rec: 03/08/23 16:05 LN [id number]) Discharge Planning Assessment Assigned Frame Carver Spindle MICHAEL Cid Advance Directives? Yes Advance Directives on File No History Provided By Patient,Family Member,Medical Record Has Patient been admitted in last 30 Yes days? Comment Patient was admitted 03/01/23-03/03/23 for GI bleed and Anemia Prior Living Arrangements House Comment Patient lives on lower level of house Household Members other Comment Patient's former lives in home with patient. Type of transporation used prior to Relies on Others admit Comment Since recently hospitalization patient has not been able to drive. Independent with ADL's No Is patient alert and oriented? Yes Needs Assistance With Bathing,Meal Prep,Managing Medications,Home Chores / Shopping Comment Since recent d/c patient has required 2 person max assist to get up and patient shuffles to bathroom, patient has been unable to bathe since d/c DME Already Rented / Owned Wheelchair,FWW / Walker,Cane Comment Patient denies using DME but states he has DME at home. Family reports that patient has chair lift at home. Patient/Family Preference Home with Home Health Comment Patient preference home with HH, no agency preference. Daughter and ex-spouse have preference for SNF rehab, but patient does not agree. Transportation Arrangement Most likely ex- will provide transport upon d/c. Additional Comment Patient will need HH referral Medicare Choice List Provided Yes SNF/HH Preference No HH preference, whichever agency can start services the soonest. No SNF rehab preference at this time, patient not agreeable to SNF at this time. Please Provide Date Initial DC 03/08/23 Assessment Was Performed
--- NOTE | 2023-03-08 16:25 | PT.IIE ---
Medical History (Last Reviewed 03/08/23 @ 16:03 by Edwin Zee DO) Diabetes Frequent falls Hypertension Non compliance w medication regimen Physical Therapy Inpatient Evaluation/Re-Eval M1 PT/OT-IP Prior Functional Status Start: 03/08/23 13:45 Freq: Status: Active Protocol: Document 03/08/23 13:45 AMB (Rec: 03/08/23 16:15 AMB [id number]) Medical Review Prior Functional Status Medical History Reviewed Yes Mobility and Gait Per ex- pt was Independent with all ADLS prior to a month ago. Then has had a decline in mobility, was in the hospital a week ago, and hasn't had a shower since then . Currently has a 4WW and transfers from sitting onto the 4WW to other seats. Activities of Daily Living and IADL's Pt's and daughter report pt has fallen 1x/day since coming home from the hospital a week ago. Neighbors have helped him get up from the floor, ex- is unable to help. Pt reports he is unable to get up from bed to use the bathroom in the middle of the night without falling. Social History Household Members family,other Living Arrangements House Number of Floors (Floors) Two Floors Home Equipment Four Wheel Walker Employment Status Retired Additional Social History Comment Pt lives in the same house as his ex- and her current . Pt lives on the main floor and his ex- lives on the second floor. Their adult daughter lives across the street. M2 PT-IP Current Condition Start: 03/08/23 13:45 Freq: Status: Active Protocol: Document 03/08/23 13:45 AMB (Rec: 03/08/23 16:15 AMB [id number]) Physical Therapy Current Condition Current Condition Evaluation Date 03/08/23 Treatment Diagnosis weakness, falls Onset Date 03/08/23 M3 PT-IP Subjective Start: 03/08/23 13:45 Freq: Status: Active Protocol: Document 03/08/23 13:45 AMB (Rec: 03/08/23 16:15 AMB [id number]) Subjective Physical Therapy Visit Type Type Initial Evaluation Visit Start Time 13:45 Visit Stop Time 14:20 Total Visit Minutes 40 Physical Therapy Visit Comments Patient Comments I need to pee Therapy Pain Assessment Pain When Pain Assessed At Rest Pain Present Pain Present Denied Pain M4 PT-IP Mobility and Gait Start: 03/08/23 13:45 Freq: Status: Active Protocol: Document 03/08/23 13:45 AMB (Rec: 03/08/23 16:15 AMB [id number]) PT-Bed Mobility Assessment Rolling Level of Assist Contact Guard Assistance,1 Person Assistance Supine to Sit Supine to Sit Moderate Assistance,1 Person Assistance Sit to Supine Sit to Supine Minimal Assistance,1 Person Assistance,Head of Bed Elevated,Bedrails PT-Transfer Assessment Sit to and From Stand Sit to and from Stand Contact Guard Assistance Equipment Transfer Assistive Device Gait Belt Transfers Transfer Destination Bed Transfer Technique Stand Pivot Transfer Ability Level of Assist Contact Guard Assistance Comments Mobility Comments Pt Lying in bed with family at bedside. Needed modA to move from sidelying to sit with HOB elevated, then able to stand from bed with CGA, heavy use of UE support. Gait Assessment Gait Gait Assistance Required: Minimum Assistance Distance (Feet) 5 Assistive Devices Assistive Device Gait Belt Gait Deviations General Gait Pattern Decreased Feet Clearance, Flexed Trunk,Step-to Gait,Wide Based Gait Factors Limiting Gait Function Factors Limiting Gait Function Poor Safety Awareness Comments Gait Comments Pt takes a few steps forward with heavy use of UEs on walker, loses balance and requires Jaylene to recover when taking small steps backward. PT-Balance Assessment Sitting Balance and Reactions Static Sitting Balance Ability Good Dynamic Sitting Balance Ability Fair Standing Balance and Reactions Static Standing Balance Ability Fair Dynamic Standing Balance Ability Poor M5 PT-IP Objective Assessments Start: 03/08/23 13:45 Freq: Status: Active Protocol: Document 03/08/23 13:45 AMB (Rec: 03/08/23 16:15 AMB [id number]) Strength Lower Extremity Strength Hip 3 Knee 4 Ankle 4 M7 PT-IP Assessment and Plan Start: 03/08/23 13:45 Freq: Status: Active Protocol: Document 03/08/23 14:32 AMB (Rec: 03/08/23 14:33 AMB [id number]) PT Summary Assessment and Plan Potential Rehabilitation Potential Good Status of Condition at Evaluation Stable Summary Impairments Strength,Balance,Bed Mobility, Transfers,Gait Assessment Summary Kanika was in the ER at time of eval and then was admitted to the floor on Obs status. This is second admit in a week . He has had a fairly precipitous decline per family over the past month. At this point between his last admit and now he is falling about 1x /day. He is not really walking at home, but more sitting on his 4WW and transferring with family. He was able to move from supine to sit with ModA, stand with CGA and then ambulate a few steps with FWW with Jaylene to prevent LOB with taking a few steps backwards. At this point considering his falls at home, weakness and need for ModA for bed mobility and near LOB with ambulating just a few feet with FWW he would benefit from SNF placement at discharge unless he is significantly improved. Goals Bed Mobility Goal Contact Guard Assistance Transfer Goal Contact Guard Assistance Gait Goal Contact Guard Assistance Gait Distance 50 Days to Meet Goals 7 Frequency of Treatment Frequency Of Treatment Once a Day Treatment Plan Physical Therapy Treatment Plan Bed Mobility Training,Transfer Training,Gait Training, Therapeutic Exercise,Balance Retraining Recommendations To Nursing Amount of Assist Needed 1 Person Assist Discharge Recommendations PT Discharge Recommendations SNF Rehab Transportation Needs at Discharge Private Vehicle
[2023-03-08 17:59] LABS: Appearance Urine UA CLEAR; Bilirubin Urine UA NEGATIVE (NEGATIVE); Color Urine UA YELLOW; Glucose Urine UA NEGATIVE (Negative); Ketones Urine UA NEGATIVE (NEGATIVE); Leukocyte Esterase Urine UA TRACE (NEGATIVE); Nitrite Urine UA NEGATIVE (Negative); Occult Blood Urine UA NEGATIVE (Negative); Protein Urine UA NEGATIVE (Negative); Urobilinogen Urine UA 0.2 E.U./dL (0.2); pH Urine UA 5.5 (4.5-8.0)
[2023-03-08 18:07] LABS: Bacteria Urine None Seen; Culture Indicated Urine Cult Not Indicated; RBC Urine None Seen (0-5/HPF); WBC Urine 0-1/HPF (0-5/HPF)
--- NOTE | 2023-03-08 18:18 | PC.NURSE ---
Pt arrives from ED at approximately at 1600 this evening. He is A&Ox3 forgetful slightly. BG 79 VSS, on RA. Continuous monitoring, bed alarm,scd's placed. He calls appropriately for urinal. q 2 turning, he denies pain. IVF NS at 100 ml/hr in L AC. he is able to eat majority of dinner.
[2023-03-08] MEDS: FERROUS SULFATE 325 MG TABLET PO (20:46)
[2023-03-08] MEDS: ATORVASTATIN 20 MG TABLET PO (20:46)
[2023-03-08] MEDS: MELATONIN 3 MG TABLET 6 MG PO (20:46)
[2023-03-09] VITALS: BP 106/45; PULSE 77; RESP 16; TEMP 36.3; O2SAT 94
[2023-03-09] MEDS: SODIUM CHLORIDE 0.9% 1,000 ML 100 ML IV (01:49)
--- NOTE | 2023-03-09 05:08 | PC.NURSE ---
Nightshift Pt at start of shift lungs were upper lobes clear with mild expiratory wheezing, and diminished at bases. Reassessed and Pt now has productive cough, with yellow colored phlegm. Pt lungs now has expiratory wheezing throughout bilaterally. No Fevers noted, Pt denies Chills, N/V, or any pain. SpO2% 93 on room air.
[2023-03-09] MEDS: PANTOPRAZOLE DR 20 MG TABLET PO (06:01)
[2023-03-09 06:59] LABS: Add Manual Diff / Slide Review NO; Basophils Absolute Auto 100 /uL (0-100); Basophils Percent Auto 1.7 % (0-2); Eosinophils Absolute Auto 200 /uL (0-450); Eosinophils Percent Auto 3.4 % (2-4); Hematocrit 24.6 % (41-53); Hemoglobin 7.9 g/dL (13.5-17.5); Lymphocytes Absolute Auto 1000 /uL (1100-4500); Lymphocytes Percent Auto 21.7 % (25-40); Mean Corpuscular HGB Conc 32.2 % (30-36); Mean Corpuscular Hemoglobin 26.9 PG (26-34); Mean Corpuscular Volume 83.7 fL (80-100); Monocytes Absolute Auto 700 /uL (0-900); Monocytes Percent Auto 15.9 % (3-14); Neutrophils Absolute Auto 2600 /uL (1500-7000); Neutrophils Percent Auto 57.3 % (50-75); Platelet Count 211 X10^3/uL (150-400); Red Blood Cell Count 2.95 X10^6/uL (4.5-5.9); White Blood Cell Count 4.5 X10^3/uL (4.5-11.0)
[2023-03-09 07:10] LABS: BUN Creatinine Ratio 15.8 (6-22); Blood Urea Nitrogen 15 mg/dL (9-20); Calcium 8.3 mg/dL (8.4-10.2); Carbon Dioxide 28 mmol/L (22-32); Chloride 105 mmol/L (98-107); Estimated Glomerular Filt Rate > 60 mL/min (>60); Glucose 91 mg/dL (80-110); HEMOLYSIS < 15 (0-50); Potassium 3.8 mmol/L (3.4-5.1); Sodium 137 mmol/L (137-145)
--- NOTE | 2023-03-09 07:14 | P.PN_ITS ---
Subjective Subjective Interval history: Patient notes lots of coughing overnight and requesting something for this. Awaiting further PT eval today. Exam Vital Signs (past 8 hours): - 03/09/23 00:00 Temperature 97.4 F L Pulse Rate 77 Respiratory Rate 16 Blood Pressure 106/45 L Pulse Oximetry 94 Oxygen Flow Rate 0 Oxygen Delivery Method Room Air Oxygen Flow Rate 0 Narrative Exam Narrative: GEN: no acute distress, elderly male HEENT: moist mucous membranes, PERRL NECK: trachea midline, no JVD CV: regular rate and rhythm, no murmurs PULM: clear bilaterally ABD: soft, nontender, nondistended, no organomegaly EXT: warm and well perfused with no edema NEURO: awake, alert, oriented, no focal deficits Objective Labs 03/09/23 06:30 03/09/23 06:30 Labs: Laboratory Results - last 24 hr 03/08/23 03/08/23 03/08/23 11:10 11:10 11:10 WBC 4.7 RBC 3.41 L Hgb 9.3 L Hct 28.7 L MCV 84.2 MCH 27.2 MCHC 32.3 RDW 19.1 H Plt Count 279 Neut % (Auto) 51.8 Lymph % (Auto) 27.8 [place] % (Auto) 14.9 H Eos % (Auto) 4.0 Baso % (Auto) 1.5 Neut # (Auto) 2400 Lymph # (Auto) 1300 [place] # (Auto) 700 Eos # (Auto) 200 Baso # (Auto) 100 PT 12.6 INR 1.1 Sodium 138 Potassium 4.0 Chloride 102 Carbon Dioxide 29 BUN 17 Creatinine 1.09 Estimated GFR > 60 BUN/Creatinine Ratio 15.6 Glucose 102 Lactate Calcium 9.1 Magnesium Total Bilirubin 0.6 AST 46 ALT 34 Alkaline Phosphatase 105 Troponin I 0.021 NT-Pro-B Natriuret Pep 372 Total Protein 7.5 Albumin 3.7 Globulin 3.8 Albumin/Globulin Ratio 1.0 TSH Urine Color Urine Appearance Urine pH Ur Specific [place] Urine Protein Urine Glucose (UA) Urine Ketones Urine Occult Blood Urine Nitrate Urine Bilirubin Urine Urobilinogen Ur Leukocyte Esterase Urine RBC Urine WBC Urine Bacteria Ur Culture Indicated? Ethyl Alcohol SARS-CoV-2 (PCR) 03/08/23 03/08/23 03/08/23 11:10 11:10 14:46 WBC RBC Hgb Hct MCV MCH MCHC RDW Plt Count Neut % (Auto) Lymph % (Auto) [place] % (Auto) Eos % (Auto) Baso % (Auto) Neut # (Auto) Lymph # (Auto) [place] # (Auto) Eos # (Auto) Baso # (Auto) PT INR Sodium Potassium Chloride Carbon Dioxide BUN Creatinine Estimated GFR BUN/Creatinine Ratio Glucose Lactate 1.1 Calcium Magnesium Total Bilirubin AST ALT Alkaline Phosphatase Troponin I NT-Pro-B Natriuret Pep Total Protein Albumin Globulin Albumin/Globulin Ratio TSH Urine Color Urine Appearance Urine pH Ur Specific [place] Urine Protein Urine Glucose (UA) Urine Ketones Urine Occult Blood Urine Nitrate Urine Bilirubin Urine Urobilinogen Ur Leukocyte Esterase Urine RBC Urine WBC Urine Bacteria Ur Culture Indicated? Ethyl Alcohol < 10 SARS-CoV-2 (PCR) Negative 03/08/23 03/08/23 03/08/23 14:48 14:48 16:45 WBC RBC Hgb Hct MCV MCH MCHC RDW Plt Count Neut % (Auto) Lymph % (Auto) [place] % (Auto) Eos % (Auto) Baso % (Auto) Neut # (Auto) Lymph # (Auto) [place] # (Auto) Eos # (Auto) Baso # (Auto) PT INR Sodium Potassium Chloride Carbon Dioxide BUN Creatinine Estimated GFR BUN/Creatinine Ratio Glucose Lactate Calcium Magnesium 1.8 Total Bilirubin AST ALT Alkaline Phosphatase Troponin I NT-Pro-B Natriuret Pep Total Protein Albumin Globulin Albumin/Globulin Ratio TSH 4.60 Urine Color Yellow Urine Appearance Clear Urine pH 5.5 Ur Specific [place] 1.020 Urine Protein Negative Urine Glucose (UA) Negative Urine Ketones Negative Urine Occult Blood Negative Urine Nitrate Negative Urine Bilirubin Negative Urine Urobilinogen 0.2 Ur Leukocyte Esterase Trace H Urine RBC None seen Urine WBC 0-1/hpf Urine Bacteria None seen Ur Culture Indicated? Cult not indicated Ethyl Alcohol SARS-CoV-2 (PCR) 03/09/23 03/09/23 06:30 06:30 WBC 4.5 RBC 2.95 L Hgb 7.9 L Hct 24.6 L MCV 83.7 MCH 26.9 MCHC 32.2 RDW 19.0 H Plt Count 211 Neut % (Auto) 57.3 Lymph % (Auto) 21.7 L [place] % (Auto) 15.9 H Eos % (Auto) 3.4 Baso % (Auto) 1.7 Neut # (Auto) 2600 Lymph # (Auto) 1000 L [place] # (Auto) 700 Eos # (Auto) 200 Baso # (Auto) 100 PT INR Sodium 137 Potassium 3.8 Chloride 105 Carbon Dioxide 28 BUN 15 Creatinine 0.95 Estimated GFR > 60 BUN/Creatinine Ratio 15.8 Glucose 91 Lactate Calcium 8.3 L Magnesium Total Bilirubin AST ALT Alkaline Phosphatase Troponin I NT-Pro-B Natriuret Pep Total Protein Albumin Globulin Albumin/Globulin Ratio TSH Urine Color Urine Appearance Urine pH Ur Specific [place] Urine Protein Urine Glucose (UA) Urine Ketones Urine Occult Blood Urine Nitrate Urine Bilirubin Urine Urobilinogen Ur Leukocyte Esterase Urine RBC Urine WBC Urine Bacteria Ur Culture Indicated? Ethyl Alcohol SARS-CoV-2 (PCR) PFSH Medical History Diabetes Frequent falls Hypertension Non compliance w medication regimen Social History household members: spouse and other Smoking Status: Never smoker alcohol intake: current Assessment & Plan Assessment & Plan narrative: # progressive dyspnea, cough and weakness -patient states he can no longer walk due to weakness and exertional shortness of breath, notes 1 month of runny nose, dry cough and congestion which may be viral related. Or possibly anemia versus deconditioning. -PT/OT evals -echo ordered -depending on echo may warrant inpatient nuclear stress test -start tessalon perles PRN for cough # normocytic anemia with history of previous GI bleed -hemoglobin 9.3, MCV normal -patient notes colonoscopy recently but he does not remember the results -patient denies melena or hematochezia -monitor for bleeding # type 2 diabetes -hold home metformin and initiate low-dose sliding scale insulin # hypertension -continue home lisinopril and chlorthalidone # hyperlipidemia -continue home Lipitor # GERD -continue home PPI Code status is DNR. COVID negative. DVT prophylaxis with Lovenox. Proxy is daughter. I have reviewed home meds and used all available resources to reconcile the home meds. Dispo: Pending home with HH vs SNF. Likely in 1-2 days.
[2023-03-09] MEDS: POTASSIUM CHLORIDE 10 MEQ TAB PO (09:21)
[2023-03-09] MEDS: FOLIC ACID 1 MG TABLET PO (09:21)
[2023-03-09] MEDS: CHLORTHALIDONE 25 MG TABLET PO (09:21)
[2023-03-09] MEDS: FERROUS SULFATE 325 MG TABLET PO ×2 (09:21→21:06)
[2023-03-09 09:22] VITALS: BP 120/56; PULSE 84
[2023-03-09] MEDS: THIAMINE 100 MG TABLET PO (09:22)
[2023-03-09] MEDS: ENOXAPARIN 40 MG/0.4 ML SYRINGE SUBCUT (09:22)
[2023-03-09] MEDS: MULTIVITAMIN 1 TABLET 1 TAB PO (09:22)
[2023-03-09] MEDS: lisinopriL 20 MG TABLET 40 MG PO (09:22)
[2023-03-09 11:14] VITALS: BP 109/57; PULSE 91; RESP 16; TEMP 36.9; O2SAT 94
--- NOTE | 2023-03-09 11:40 | PT.IPTN ---
Physical Therapy Treatment Note M2 PT-IP Current Condition Start: 03/08/23 13:45 Freq: Status: Active Protocol: Document 03/08/23 13:45 AMB (Rec: 03/08/23 16:15 AMB [id number]) Physical Therapy Current Condition Current Condition Evaluation Date 03/08/23 Treatment Diagnosis weakness, falls Onset Date 03/08/23 M3 PT-IP Subjective Start: 03/08/23 13:45 Freq: Status: Active Protocol: Document 03/09/23 12:29 TS (Rec: 03/09/23 12:46 TS [id number]) Subjective Physical Therapy Visit Type Type Treatment Note Visit Start Time 11:40 Visit Stop Time 12:10 Total Visit Minutes 30 Number of GLASS FURNACE OPERATOR Visits 1 Physical Therapy Visit Comments Patient Comments Pt reports he continues to feels weak, family trying to get him some eye drops. Therapy Pain Assessment Pain When Pain Assessed At Rest Pain Present Pain Present Denied Pain M4 PT-IP Mobility and Gait Start: 03/08/23 13:45 Freq: Status: Active Protocol: Document 03/09/23 12:29 TS (Rec: 03/09/23 12:46 TS [id number]) PT-Bed Mobility Assessment Supine to Sit Supine to Sit Minimal Assistance,1 Person Assistance Scooting Scooting to Edge of Bed Contact Guard Assistance PT-Transfer Assessment Sit to and From Stand Sit to and from Stand Standby Assistance,Minimal Assistance,Moderate Assistance Equipment Transfer Assistive Device Gait Belt,Front Wheeled Walker Transfers Transfer Destination Chair Transfer Technique Stand Step Pivot Transfer Ability Level of Assist Minimal Assistance Comments Mobility Comments Pt found resting in bed, agreeable to PT session. Pt performed supine to sit Jaylene for uprighting trunk with HOB elevated 40D, cues for UE support. Pt scooted SBA slowly to EOB with BUE support handrail assist. Pt performed sit to stand x1 ModA, x1 Jaylene, x2SBA with UEs on FWW for pericare. Pt leans heavily posterior requiring Jaylene-ModA to sya upright, uses back of legs against bed for standing balance. He performed stand pivot transfer to chair Jaylene for retrolean, cues for upright posture and knee ext. Pt was left in bedside chair with call light nearby, RN notified. Gait Assessment Comments Gait Comments Pt unable at this time to progress past stand step pivot transfer. PT-Balance Assessment Sitting Balance and Reactions Static Sitting Balance Ability Good Dynamic Sitting Balance Ability Fair Standing Balance and Reactions Static Standing Balance Ability Fair Dynamic Standing Balance Ability Poor Comments Other Balance Tests/Deviations/Treatment Pt uses back of LEs against : bed to stay upright in standing. M5 PT-IP Objective Assessments Start: 03/08/23 13:45 Freq: Status: Active Protocol: Document 03/08/23 13:45 AMB (Rec: 03/08/23 16:15 AMB [id number]) Strength Lower Extremity Strength Hip 3 Knee 4 Ankle 4 M7 PT-IP Assessment and Plan Start: 03/08/23 13:45 Freq: Status: Active Protocol: Document 03/09/23 12:29 TS (Rec: 03/09/23 12:46 TS [id number]) PT Summary Assessment and Plan Potential Rehabilitation Potential Good Status of Condition at Evaluation Evolving Summary Impairments Strength,Balance,Bed Mobility, Transfers,Gait Assessment Summary Pt continues to have weakness in LEs and increased effort for mobility. Pt progressed supine to sit to Jaylene this session for uprighting trunk. He initially required ModA to stand x1, progressed to Jaylene x1 and SBA x2, he heavily retroleans in standing and braces legs against bed to hold himself upright. He could not progress his ambulation today due to poor balance/ weakness in LEs. He performed stand step pivot transfer to chair Jaylene for staying upright . PT continues to recommend SNF to improve strength, bed mobility, transfers and gait. Goals Bed Mobility Goal Contact Guard Assistance Transfer Goal Contact Guard Assistance Gait Goal Contact Guard Assistance Gait Distance 50 Days to Meet Goals 7 Frequency of Treatment Frequency Of Treatment Once a Day Treatment Plan Physical Therapy Treatment Plan Bed Mobility Training,Transfer Training,Gait Training, Therapeutic Exercise,Balance Retraining Recommendations To Nursing Amount of Assist Needed 1 Person Assist Discharge Recommendations PT Discharge Recommendations SNF Rehab Transportation Needs at Discharge Private Vehicle,Wheelchair/ Cabulance
--- NOTE | 2023-03-09 11:55 | CM.DPC ---
Addendum entered by KWABENA Michael 03/09/23 13:16: ADD: SW received a call from Gl[facility] at [facility] confirming they could accept pt and will submit for auth today 03/09/23 and if they get auth they can accept tomorrow Sun pending transport. SW called pt's ex-/DPOA Gisselle and updated on above and she is agreeable with d/c to [facility] but will need to convince pt on Short Stay rehab before discharge to home. Gisselle confirms pt no longer drinks and no longer drives and he lives on her property and they have been but amicable for over 20 years. Plan: SW to attempt to meet bedside with pt today to discuss the rehab at [facility] before safe return home. BF Original Note: DCP SNF vs HH planning: Per MD, pt to have Echo and maybe further imaging and labs towards determining etiology of pt's weakness and difficulty ambulating. Not yet medically stable to discharge. Per UR RN, EHR determined pt is OBS status. SW made initial referrals to [facility], [facility], and [facility] to review in case SNF needed at d/c and they are contracted with pt's [employer] M[employer]. SW waiting for further PT today to determine if pt making progress for return home with a new HH referral to be made. PASRR done in anticipation of possible SNF. Plan: SW to follow closely for further PT and SNF reviews to determine SNF vs home with new HH referral and if SNF needed then [employer] auth would be needed. Barrier is pt's OBS status and a weekend. KWABENA Michael
[2023-03-09] MEDS: INSULIN LISPRO 100 UNIT/ML 3ML VIAL SUBCUT (12:38)
--- NOTE | 2023-03-09 12:46 | DI.RAD.S_ITS ---
PROCEDURE: XR CHEST 1V INDICATIONS: look for aspiration TECHNIQUE: One view of the chest was acquired. COMPARISON: [facility], CR, XR CHEST 1V, 03/08/2023, 10:45. FINDINGS: Surgical changes and devices: None. Lungs and pleura: Lungs are clear. No pleural effusions or pneumothorax. Mediastinum: Mediastinal contours appear normal. Heart size is normal. Bones and chest wall: No suspicious bony lesions. Overlying soft tissues appear unremarkable. IMPRESSION: No acute cardiopulmonary pathology. Dictated by: Andrew Arora M.D. on 03/09/2023 at 13:13 Approved by: Andrew Arora M.D. on 03/09/2023 at 13:14
--- NOTE | 2023-03-09 14:07 | CM.DPC ---
DCP Note Continued MINERAL SURVEYING TECHNICIAN reviews patient with KWABENA Wilks regarding SNF rehab awaiting auth with [employer]. MINERAL SURVEYING TECHNICIAN enters room to meet with patient regarding SNF rehab, present in room is patient's granddaughter and great-grandson. MINERAL SURVEYING TECHNICIAN discusses with patient that he is appropriate for, will benefit from and insurance is likely going to approve/authorize SNF rehab. MINERAL SURVEYING TECHNICIAN discusses the benefits of SNF rehab to re-build strength, work with PT, have caregivers on site prior to return to home. Patient agrees to short SNF rehab stay and granddaughter encourages patient to take it day by day regarding rehabilitation. Patient is in agreement and would agree to HH at home after d/c from SNF rehab. Granddaughter asks about patient's recent labs and rx for eye drops, MINERAL SURVEYING TECHNICIAN informs special agent in charge of granddaughter's questions. Plan: Awaiting Insurance auth for SNF rehab at [facility], DCP to f/u with [facility]ress[facility]. Awaiting patient's medical stability, likely d/c to SNF tomorrow or Saturday. DCP to f/u with POC. MICHAEL Isbell
[2023-03-09] MEDS: BENZONATATE 100 MG CAPSULE PO (17:10)
[2023-03-09 19:30] VITALS: BP 138/71; PULSE 74; RESP 15; TEMP 36; O2SAT 96
[2023-03-09] MEDS: ATORVASTATIN 20 MG TABLET PO (21:06)
[2023-03-09] MEDS: guaiFENesin ER 600 MG TAB PO (21:07)
[2023-03-10 03:00] VITALS: BP 140/73; PULSE 78; RESP 15; TEMP 36; O2SAT 96
--- NOTE | 2023-03-10 05:20 | PC.NURSE ---
Patient sleeping most of shift, but when given pills requiring head of bed up and choking on water. Able to clear and maintain airway without difficulty. Encouraged patient to slowly swallow, with head up
[2023-03-10] MEDS: PANTOPRAZOLE DR 20 MG TABLET PO (06:28)
[2023-03-10 06:45] LABS: Add Manual Diff / Slide Review NO; Basophils Absolute Auto 100 /uL (0-100); Basophils Percent Auto 2.7 % (0-2); Eosinophils Absolute Auto 200 /uL (0-450); Eosinophils Percent Auto 4.6 % (2-4); Hematocrit 26.4 % (41-53); Hemoglobin 8.4 g/dL (13.5-17.5); Lymphocytes Absolute Auto 1100 /uL (1100-4500); Lymphocytes Percent Auto 29.4 % (25-40); Mean Corpuscular HGB Conc 31.7 % (30-36); Mean Corpuscular Hemoglobin 26.6 PG (26-34); Mean Corpuscular Volume 83.8 fL (80-100); Monocytes Absolute Auto 600 /uL (0-900); Monocytes Percent Auto 17.7 % (3-14); Neutrophils Absolute Auto 1700 /uL (1500-7000); Neutrophils Percent Auto 45.6 % (50-75); Platelet Count 231 X10^3/uL (150-400); Red Blood Cell Count 3.15 X10^6/uL (4.5-5.9); Red Cell Distribution Width 19.4 % (11.6-14.8); White Blood Cell Count 3.6 X10^3/uL (4.5-11.0)
[2023-03-10 06:52] LABS: BUN Creatinine Ratio 15.2 (6-22); Blood Urea Nitrogen 14 mg/dL (9-20); Calcium 8.7 mg/dL (8.4-10.2); Carbon Dioxide 29 mmol/L (22-32); Chloride 104 mmol/L (98-107); Estimated Glomerular Filt Rate > 60 mL/min (>60); Glucose 93 mg/dL (80-110); HEMOLYSIS < 15 (0-50); Potassium 3.8 mmol/L (3.4-5.1); Sodium 136 mmol/L (137-145)
[2023-03-10 08:00] VITALS: BP 96/52; PULSE 97; RESP 18; TEMP 36.6; O2SAT 92
[2023-03-10] MEDS: ENOXAPARIN 40 MG/0.4 ML SYRINGE SUBCUT (08:52)
[2023-03-10] MEDS: guaiFENesin ER 600 MG TAB PO ×2 (08:52→20:27)
[2023-03-10] MEDS: lisinopriL 20 MG TABLET 40 MG PO (08:52)
[2023-03-10] MEDS: POTASSIUM CHLORIDE 10 MEQ TAB PO (08:52)
[2023-03-10] MEDS: THIAMINE 100 MG TABLET PO (08:52)
[2023-03-10] MEDS: FERROUS SULFATE 325 MG TABLET PO ×2 (08:52→20:27)
[2023-03-10] MEDS: MULTIVITAMIN 1 TABLET 1 TAB PO (08:53)
[2023-03-10] MEDS: CHLORTHALIDONE 25 MG TABLET PO (08:53)
[2023-03-10] MEDS: FOLIC ACID 1 MG TABLET PO (08:53)
--- NOTE | 2023-03-10 10:20 | PT.IPTN ---
Physical Therapy Treatment Note M2 PT-IP Current Condition Start: 03/08/23 13:45 Freq: Status: Active Protocol: Document 03/08/23 13:45 AMB (Rec: 03/08/23 16:15 AMB [id number]) Physical Therapy Current Condition Current Condition Evaluation Date 03/08/23 Treatment Diagnosis weakness, falls Onset Date 03/08/23 M3 PT-IP Subjective Start: 03/08/23 13:45 Freq: Status: Active Protocol: Document 03/10/23 09:55 KS (Rec: 03/10/23 11:12 KS [id number]) Subjective Physical Therapy Visit Type Type Treatment Note Visit Start Time 09:55 Visit Stop Time 10:20 Total Visit Minutes 25 Notes BP: 90s/50s throughout. Number of GREEN END MAN Visits 2 Physical Therapy Visit Comments Patient Comments Pt reports feeling wobbly. M4 PT-IP Mobility and Gait Start: 03/08/23 13:45 Freq: Status: Active Protocol: Document 03/10/23 09:55 KS (Rec: 03/10/23 11:12 KS [id number]) PT-Bed Mobility Assessment Supine to Sit Supine to Sit Moderate Assistance,1 Person Assistance,Head of Bed Elevated Scooting Scooting to Edge of Bed Moderate Assistance PT-Transfer Assessment Sit to and From Stand Sit to and from Stand Minimal Assistance,Moderate Assistance,1 Person Assistance ,Use of Upper Extremities Equipment Transfer Assistive Device Gait Belt,Front Wheeled Walker Transfers Transfer Destination Chair Transfer Technique Ambulated Transfer Ability Level of Assist Moderate Assistance,1 Person Assistance,Use of Upper Extremities Comments Mobility Comments Pt in bed upon arrival, agreeable to walk to chair. BP : 90s/50s in supine and sitting. Unable to stand long enough for BP reading standing , but denies dizziness just feels wobbly and weak. Pt stood twice, on first attempt required Mod A and leans against bed frame for support. On second attempt he required Min A and was able to ambulate ~5 ft to chair w/ FWW and Mod A. Pt very unstable w/ short stride and minimal foot clearance. Mod A for slow descent into chair. Pt performed 1x10 ankle pumps, LAQs, seated marching, and glute sets. Left in chair w/ all needs in reach. Gait Assessment Gait Gait Assistance Required: Moderate Assistance,1 Person Assist Distance (Feet) 5 Assistive Devices Assistive Device Gait Belt,Front Wheeled Walker Gait Deviations General Gait Pattern Decreased Stride Length, Decreased Feet Clearance, Flexed Trunk,Wide Based Gait Factors Limiting Gait Function Factors Limiting Gait Function Decreased Activity Tolerance, Decreased Strength,Difficulty Following Directions, Incoordination,Poor Balance, Poor Safety Awareness Comments Gait Comments See mobility section for details. Stair Climbing Assessment Comments Stair Climbing Comments Unable PT-Balance Assessment Sitting Balance and Reactions Static Sitting Balance Ability Fair Dynamic Sitting Balance Ability Fair Standing Balance and Reactions Static Standing Balance Ability Fair Dynamic Standing Balance Ability Poor Comments Other Balance Tests/Deviations/Treatment Pt uses back of LEs against : bed to stay upright in standing. M5 PT-IP Objective Assessments Start: 03/08/23 13:45 Freq: Status: Active Protocol: Document 03/08/23 13:45 AMB (Rec: 03/08/23 16:15 AMB [id number]) Strength Lower Extremity Strength Hip 3 Knee 4 Ankle 4 M6 PT-IP Treatment Start: 03/08/23 13:45 Freq: Status: Active Protocol: Document 03/10/23 09:55 KS (Rec: 03/10/23 11:12 KS [id number]) Physical Therapy Treatment Exercises Exercises Ankle Pumps,Gluteal Sets,Quad Sets Other Treatments Other Treatment Performed Seated marching M7 PT-IP Assessment and Plan Start: 03/08/23 13:45 Freq: Status: Active Protocol: Document 03/10/23 09:55 KS (Rec: 03/10/23 11:12 KS [id number]) PT Summary Assessment and Plan Potential Rehabilitation Potential Good Summary Impairments Strength,Balance,Bed Mobility, Transfers,Gait Progress Towards Goals Slow Progress due to Activity Tolerance Assessment Summary Pt able to increase ambulation distance just slightly today, but still requires Mod A for bed mobility and transfer w/ FWW. Only able to ambulate 5 ft due to weakness and low tolerance for activity. High fall risk due to poor balance and poor activity tolerance. He will require SNF to improve strength and functional mobility. Goals Bed Mobility Goal Contact Guard Assistance Transfer Goal Contact Guard Assistance Gait Goal Contact Guard Assistance Gait Distance 50 Days to Meet Goals 7 Frequency of Treatment Frequency Of Treatment Once a Day Treatment Plan Physical Therapy Treatment Plan Bed Mobility Training,Transfer Training,Gait Training, Therapeutic Exercise,Balance Retraining Recommendations To Nursing Amount of Assist Needed 1 Person Assist Discharge Recommendations PT Discharge Recommendations SNF Rehab Transportation Needs at Discharge Private Vehicle,Wheelchair/ Cabulance
--- NOTE | 2023-03-10 11:17 | CM.DPC ---
DCP continued: CM spoke with Glo at [facility] who stated they are still pending [employer] authorization. Glo stated they can accept the patient tomorrow and should have authorization by them for SNF. CM team will follow up in the morning and work on DC to snf. PASRR Complete. Called Glo to see if they needed covid test and LVM. CM team will follow up to see if COvid swab is needed. Lili Gaines RNpunch hand
--- NOTE | 2023-03-10 12:35 | P.PN_ITS ---
Subjective Subjective Interval history: Patient has no complaints today. Speech eval ordered after speaking with ex- who says he constantly has trouble swallowing. SNF accepted for tomorrow. Exam Vital Signs (past 8 hours): - 03/10/23 08:00 Temperature 98 F Pulse Rate 97 H Respiratory Rate 18 Blood Pressure 96/52 L Pulse Oximetry 92 Oxygen Flow Rate 0 Oxygen Delivery Method Room Air Oxygen Flow Rate 0 Narrative Exam Narrative: GEN: no acute distress, elderly male HEENT: moist mucous membranes, PERRL NECK: trachea midline, no JVD CV: regular rate and rhythm, no murmurs PULM: clear bilaterally ABD: soft, nontender, nondistended, no organomegaly EXT: warm and well perfused with no edema NEURO: awake, alert, oriented, no focal deficits Objective Labs 03/10/23 06:30 03/10/23 06:30 Labs: Laboratory Results - last 24 hr 03/10/23 03/10/23 06:30 06:30 WBC 3.6 L RBC 3.15 L Hgb 8.4 L Hct 26.4 L MCV 83.8 MCH 26.6 MCHC 31.7 RDW 19.4 H Plt Count 231 Neut % (Auto) 45.6 L Lymph % (Auto) 29.4 [place] % (Auto) 17.7 H Eos % (Auto) 4.6 H Baso % (Auto) 2.7 H Neut # (Auto) 1700 Lymph # (Auto) 1100 [place] # (Auto) 600 Eos # (Auto) 200 Baso # (Auto) 100 Sodium 136 L Potassium 3.8 Chloride 104 Carbon Dioxide 29 BUN 14 Creatinine 0.92 Estimated GFR > 60 BUN/Creatinine Ratio 15.2 Glucose 93 Calcium 8.7 PFSH Medical History Diabetes Frequent falls Hypertension Non compliance w medication regimen Social History household members: spouse and other Smoking Status: Never smoker alcohol intake: current Assessment & Plan Assessment & Plan narrative: # progressive dyspnea, cough and weakness -patient states he can no longer walk due to weakness and exertional shortness of breath, notes 1 month of runny nose, dry cough and congestion which may be viral related. Or possibly anemia versus deconditioning. -PT/OT eval rec SNF -echo shows normal EF 55-60% -start tessalon perles PRN for cough # normocytic anemia with history of previous GI bleed -hemoglobin 8-9's, MCV normal -patient notes colonoscopy recently but he does not remember the results -patient denies melena or hematochezia -monitor for bleeding # type 2 diabetes -hold home metformin and initiate low-dose sliding scale insulin # hypertension -continue home lisinopril and chlorthalidone # hyperlipidemia -continue home Lipitor # GERD -continue home PPI Code status is DNR. COVID negative. DVT prophylaxis with Lovenox. Proxy is daughter. I have reviewed home meds and used all available resources to reconcile the home meds. Dispo: SNF on 03/11.
[2023-03-10 16:43] VITALS: BP 129/75; PULSE 77; RESP 18; TEMP 36.6; O2SAT 98
--- NOTE | 2023-03-10 18:40 | PC.NURSE ---
Pt arrived from ED at 1745 this evening. A&OX4, on 2 LNC, with activity he is increased to 3LNC. BP is improved from ED, at 145/96 HR 80'6. He denies CP. MD Carr notified of patient's arrival to the unit and will be here later this evening. SOB increased with any activity, talking and at rest. He is able to use the bathroom on 3 LNC. LS to L tight, and upper lobe on R. LS clear and dimminished on R. He is ordered a cardiac diet, but declines wanting any dinner. He requests tylenol this evening for 8/10 neck pain from osteoarthritis. Continuous monitoring.
[2023-03-10 20:26] VITALS: BP 131/74; PULSE 74
[2023-03-10] MEDS: ATORVASTATIN 20 MG TABLET PO (20:27)
--- NOTE | 2023-03-10 23:19 | PC.NURSE ---
Pt states it is 'February 02, 2023'. During med pass, pt asked for 'a bottle of merlot'. Pt made aware there is no alcohol here at the hospital. Pt states he drinks one bottle of wine a night at home.
[2023-03-11 00:40] VITALS: BP 122/61; PULSE 75; RESP 21; TEMP 36.4; O2SAT 94
[2023-03-11] MEDS: PANTOPRAZOLE DR 20 MG TABLET PO (05:36)
[2023-03-11 05:52] LABS: Add Manual Diff / Slide Review NO; Basophils Absolute Auto 200 /uL (0-100); Eosinophils Absolute Auto 200 /uL (0-450); Eosinophils Percent Auto 5.1 % (2-4); Hematocrit 25.7 % (41-53); Hemoglobin 8.3 g/dL (13.5-17.5); Lymphocytes Absolute Auto 1100 /uL (1100-4500); Lymphocytes Percent Auto 26.5 % (25-40); Mean Corpuscular HGB Conc 32.4 % (30-36); Mean Corpuscular Volume 83.3 fL (80-100); Monocytes Absolute Auto 700 /uL (0-900); Monocytes Percent Auto 16.1 % (3-14); Neutrophils Absolute Auto 2000 /uL (1500-7000); Neutrophils Percent Auto 48.3 % (50-75); Platelet Count 246 X10^3/uL (150-400); Red Blood Cell Count 3.09 X10^6/uL (4.5-5.9); Red Cell Distribution Width 19.2 % (11.6-14.8); White Blood Cell Count 4.2 X10^3/uL (4.5-11.0)
[2023-03-11 06:04] LABS: BUN Creatinine Ratio 14.2 (6-22); Blood Urea Nitrogen 15 mg/dL (9-20); Calcium 8.9 mg/dL (8.4-10.2); Carbon Dioxide 31 mmol/L (22-32); Chloride 101 mmol/L (98-107); Estimated Glomerular Filt Rate > 60 mL/min (>60); Glucose 93 mg/dL (80-110); HEMOLYSIS < 15 (0-50); Potassium 3.7 mmol/L (3.4-5.1); Sodium 135 mmol/L (137-145)
[2023-03-11 08:00] VITALS: BP 129/66; PULSE 78; RESP 20; TEMP 37.1; O2SAT 96
--- NOTE | 2023-03-11 08:59 | CM.DPC ---
Addendum entered by Annabella Rutledge R.N. 03/11/23 12:33: Madison from [facility] called back and indicated that she contacted [employer], they can picking tech patient at 1345. Updated hospitalist, main nursing station board, nurse, Jennifer, and called Gisselle, patient's ex , and gave her the update and the address for [facility]. Madison gave permission to give her her number. Gave her number to Madison. All orders have been faxed to [facility], and updated COVID results, which were negative. Addendum entered by Annabella Rutledge R.N. 03/11/23 12:05: Just found out from Glo at [facility], she can't accept patient, one of their patient's tested positive for COVID. Asked her if she could put patient in a different hallway, since this is a last minute cancellation, as patient was supposed to be picked up in an hour. Called Madison at [facility] to see if she can take patient, so the auth can be switched over. She indicated that Glo at [facility] would have to cancel the auth, which she will do. She was going to cancel [employer] transport. This DC Power Technician also attempted to contact [facility], but was unable to get in touch with them. Madison indicated, she was not sure if she could take patient today. Madison then called back and indicated, she may be able to accept patient, but would need to contact [employer]. Awaiting call back. Spoke to patient's ex-, Gisselle, and updated her, let her know that this DC Power Technician will give her update when he will be transported, and let her know that it will be [facility]. Original Note: DCP Cont: Left Glo at [facility] a message earlier to inquire if they received the auth from [employer]. Glo then called back and indicated, she did receive the auth. She plans on picking up patient at 1245. Updated board and nursing scheduler, placed COVID order, and updated nurse, Jennifer. PASSR completed, updated hospitalist, Dr. Benjamin, he will complete orders. P: Patient is to discharge to [facility] today. Annabella Rutledge, RN/Drug And Alcohol Treatment Specialist
[2023-03-11] MEDS: POLYVINYL ALCOHOL DROPS 1 DROPS EYE-BOTH (09:13)
[2023-03-11] MEDS: FERROUS SULFATE 325 MG TABLET PO (09:14)
[2023-03-11] MEDS: FOLIC ACID 1 MG TABLET PO (09:14)
[2023-03-11] MEDS: POTASSIUM CHLORIDE 10 MEQ TAB PO (09:14)
[2023-03-11] MEDS: CHLORTHALIDONE 25 MG TABLET PO (09:14)
[2023-03-11] MEDS: THIAMINE 100 MG TABLET PO (09:14)
[2023-03-11] MEDS: MULTIVITAMIN 1 TABLET 1 TAB PO (09:14)
[2023-03-11] MEDS: guaiFENesin ER 600 MG TAB PO (09:14)
[2023-03-11] MEDS: ENOXAPARIN 40 MG/0.4 ML SYRINGE SUBCUT (09:14)
[2023-03-11] MEDS: lisinopriL 20 MG TABLET 40 MG PO (09:15)
--- NOTE | 2023-03-11 09:17 | PM.DS.1 ---
History of Present Illness History of Present Illness Chief complaint: SOB/weak/coughing Narrative: Kanika Angela is a 77yo M with PMH of GI bleed, DM2, HTN, HLD, frequent falls, and alcohol dependence who presents with 1 month of dyspnea, weakness and fatigue. Patient says for the past month he has had rhinorrhea, dry cough and congestion as well as progressive SOB on exertion, weakness and inability to walk. He normally walks around his apartment but hasn't walked at all in the past week due to weakness. He denies CP, abd pain, NV, diarrhea, LE swelling or fever/chills. Patient states he is a DNR and has a polst at home. He says his appetite has been good and that he hasn't been losing weight. He has a history of falls but hasn't fallen recently. Patient drinks alcohol daily but denies any recent withdrawals Discharge Providers Provider Date of admission: 03/10/23 09:50 Discharge Date: 03/11/23 Primary care physician: MAYI Nick Consults: 03/08/23 12:38 Consult to Physical Therapy Evaluate & Treat Comment: Physician Instructions: Evaluate and Treat 03/08/23 14:47 Consult to Occupational Therapy Evaluate & Treat Comment: Physician Instructions: Evaluate and treat 03/08/23 14:48 Consult to Dietitian, Adult Routine Comment: Reason For Exam: assess for malnutrition 03/08/23 14:53 Consult to Discharge Planning Routine Comment: may need SNF 03/09/23 16:39 Consult to Speech Therapy Evaluate & Treat Comment: Physician Instructions: Evaluate and treat Discharge provider: Kaz Benjamin DO Summary Hospital Course Discharge Diagnosis: # progressive dyspnea, cough and weakness -patient states he can no longer walk due to weakness and exertional shortness of breath, notes 1 month of runny nose, dry cough and congestion which may be viral related.? Or possibly anemia versus deconditioning. -PT/OT eval rec SNF -echo shows normal EF 55-60% -start tessalon perles PRN for cough # normocytic anemia with history of previous GI bleed -hemoglobin 8-9's, MCV normal -patient notes colonoscopy recently but he does not remember the results -patient denies melena or hematochezia -monitor for bleeding # type 2 diabetes -hold home metformin and initiate low-dose sliding scale insulin # hypertension -continue home lisinopril and chlorthalidone # hyperlipidemia -continue home Lipitor # GERD -continue home PPI Hospital Course: Admitted for worsening weakness and difficulty ambulating. Full workup including CXR, echo, and lab work did not find source of weakness. PT recommended SNF and patient accepted and discharged to SNF on 03/11. Time Spent with Patient Time spent: Greater than 30 minutes Exam Vital Signs (past 8 hours): - 03/11/23 08:00 Temperature 98.7 F Pulse Rate 78 Respiratory Rate 20 Blood Pressure 129/66 Pulse Oximetry 96 Oxygen Flow Rate 0 Oxygen Delivery Method Room Air Oxygen Flow Rate 0 Narrative Exam Narrative: GEN: no acute distress, elderly male HEENT: moist mucous membranes, PERRL NECK: trachea midline, no JVD CV: regular rate and rhythm, no murmurs PULM: clear bilaterally ABD: soft, nontender, nondistended, no organomegaly EXT: warm and well perfused with no edema NEURO: awake, alert, oriented, no focal deficits Objective Labs 03/11/23 05:25 03/11/23 05:25 Labs: Laboratory Results - last 24 hr 03/11/23 03/11/23 05:25 05:25 WBC 4.2 L RBC 3.09 L Hgb 8.3 L Hct 25.7 L MCV 83.3 MCH 27.0 MCHC 32.4 RDW 19.2 H Plt Count 246 Neut % (Auto) 48.3 L Lymph % (Auto) 26.5 [place] % (Auto) 16.1 H Eos % (Auto) 5.1 H Baso % (Auto) 4.0 H Neut # (Auto) 2000 Lymph # (Auto) 1100 [place] # (Auto) 700 Eos # (Auto) 200 Baso # (Auto) 200 H Sodium 135 L Potassium 3.7 Chloride 101 Carbon Dioxide 31 BUN 15 Creatinine 1.06 Estimated GFR > 60 BUN/Creatinine Ratio 14.2 Glucose 93 Calcium 8.9 PFSH Medical History Diabetes Frequent falls Hypertension Non compliance w medication regimen Social History household members: spouse and other Smoking Status: Never smoker alcohol intake: current Discharge Plan Discharge Plan Patient Disposition: SNF Discharge orders & Medications Prescriptions: Continued sodium,potassium,mag sulfates [Suprep Bowel Prep Kit] 17.5-3.13-1.6 gram recon soln See Rx Instructions .ROUTE .COMPLEX Qty: 354 0RF Rx Instructions: DILUTE; drink full amount early evening before AND next morning at least 2 hr before procedure; follow w 32 oz. water folic acid 1 mg Tablet 1 mg PO DAILY Qty: 30 0RF thiamine mononitrate (vit B1) 100 mg Tablet 100 mg PO DAILY Qty: 30 0RF multivitamin with folic acid [Tab-A-Shirley] 400 mcg Tablet 1 tab PO DAILY Qty: 30 0RF ferrous gluconate 324 mg (38 mg iron) tablet 324 mg PO BID Qty: 60 0RF potassium chloride 10 mEq Capsule, Extended Release 10 meq PO QAM atorvastatin 20 mg Tablet 20 mg PO BEDTIME chlorthalidone 25 mg Tablet 25 mg PO DAILY metformin 1,000 mg Tablet 1,000 mg PO QAM omeprazole 20 mg Capsule,Delayed Release(Dr/Ec) 20 mg PO DAILY lisinopril 40 mg Tablet 40 mg PO DAILY Follow up/Referrals: Flores Joe ARNP [Primary Care Provider] - 2 Weeks Visit Report/Discharge Packet Stand Alone Forms: Patient Portal/API Discharge Data Primary Care Provider: Flores Joe
[2023-03-11 10:12] LABS: COVID19 -Nasal RAPID Negative (Negative)
--- NOTE | 2023-03-11 11:35 | ST.IPCSEOM ---
Visit Care Team Role Provider Type MAYI Nick Primary Care Provider Physician Specialty: Nursing Address: [address] [place] [address], [id number] Email: Edwin Zee DO Emergency Provider Physician Referring Provider Specialty: Emergency Medicine Address: [address] [place] [address], [id number] Email: [email or web address] Benjamin DO Admit Provider Physician Attending Provider Specialty: Internal Medicine Address: [address] [place] [address], [id number] Email: [email or web address] Past Medical History (Last Reviewed 03/08/23 @ 16:03 by Edwin Zee DO) Diabetes (Medical) Frequent falls (Medical) Hypertension (Medical) Non compliance w medication regimen (Medical) Speech-Language Pathology Swallow Evaluation 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 Patient says for the past month he has had rhinorrhea, dry cough and congestion as well as progressive SOB on exertion, weakness and inability to walk. He normally walks around his apartment but hasn't walked at all in the past week due to weakness. He denies CP, abd pain, NV, diarrhea, LE swelling or fever /chills. Patient states he is a DNR and has a polst at home. He says his appetite has been good and that he hasn't been losing weight. He has a history of falls but hasn't fallen recently. Patient drinks alcohol daily but denies any recent withdrawals Per NSG note on 03/10/23: Patient sleeping most of shift , but when given pills requiring head of bed up and choking on water. Able to clear and maintain airway without difficulty. 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 He awoke to verbal greeting and agreed to participate in swallow assessment and was re- positioned to upright position . After re-positioning, pt exhibited productive cough and requested suction to clear. Vocal quality was clear after suction was used to remove phlegm. Reported by Patient Other Symptoms Coughing,Difficulty swallowing pills Current Diet Regular,Thin liquids Baseline Feeding Method Independent in self-feeding Objective Assessment Mental Status Alert,Responsive,Cooperative Oral Integrity WFL Dentition Within normal limits,Dentures or partials present,Lower dentures/partials,Adequate denture or partial fitting Lip Function Within normal limits Observation of Lips at Rest Symmetrical Pucker Within normal limits Lip Retraction Within normal limits Alternating Pucker/Lip Retraction Within normal limits Tongue Function Mild impairment Observations of Tongue at Rest Within normal limits Tongue Protrusion Deviates to the left,Reduced range of motion Tongue Lateralization Reduced range of motion Jaw Function Within normal limits Observations of Jaw at Rest Within normal limits Jaw Opening Reduced strength Jaw Closing Within normal limits Hard/Soft Palate Function Within normal limits Observations of Hard/Soft Palate Within normal limits Nasality Within normal limits Comment Structures were symmetrical at rest and in motion with exception of left deviation with tongue protrusion. Weakness noted on jaw opening and reduced ROM noted across all tongue movements. Hyolaryngeal elevation and excursion was WNL. Pt noted he has one partial in the bottom front of his mouth, but otherwise intact dentition. No difficulty with mastication reported. Food and Liquid Trials Position During Assessment Upright (90 degrees),In bed Liquids Trialed Thin Solids Trialed Puree,Dysphagia Mechanical, Regular Administration Type Cup single sip,Straw,Self- feeding Oral Impairment Within normal limits Oral Phase Comments No anterior loss of bolus. Mastication was slowed, but WNL and a/p propulsion was timely and efficient. Pt noted to spontaneously use tongue sweep to clear oral residue. Minimal oral residue noted following dysphagia mechanical and regular textures, though WNL. No oral residue noted with liquids or puree textures . Pt did demonstrate large bite sizes and faster rate of eating, though did wait to swallow a bite before taking a second bite. Pharyngeal Impairment Within normal limits Pharyngeal Phase Comments No overt signs or symptoms of aspiration noted across all textures. Pt reported he sometimes coughs when taking medications and stated he often will tilt his head back when taking pills. Provided pt education regarding bite size , chin tuck, and rate of eating as they relate to swallow safety. Pt does have cough at baseline and it is recommended he wait until cough has cleared phlegm before eating. He maintained clear vocal quality through all PO trials despite phlegm and gurgly vocal quality prior to PO trials. Unable to rule out silent aspiration with clinical swallow evaluation. Comment Unable to assess endurance due to limited PO trials completed. Pt was also tired at start of PO trials as he recently awoke from nap. Results The pt presented with swallow function WNL. Cough present prior to PO trials which is likely related to phlegm rather than swallow safety. Coughing during meals is likely related to taking large bites/sips and tilting head back, especially while taking medications. Recommend small bites/sips at a slower rate and with use of chin tuck to reduce risk of aspiration. Provided pt education regarding positioning and he expressed understanding. Recommend regular diet and thin liquids as pt tolerated this with no overt signs or symptoms of aspiration. Unable to rule out slient aspiration with clinical swallow assessment. May follow-up with pt x1 to ensure diet tolerance and use of safe swallow strategies if pt is still admitted at . Findings Swallowing Function Within normal limits Severity of Swallow Impairment Within normal limits Prognosis Good Based on Cognitive status,Age, Comorbidities,Duration of symptoms/severity Impact on Safety and Functioning No limitations Recommendations Instrumental Assessment No Swallowing Treatment Yes Recommended Solids Regular Recommended Liquids Thin Safety Precautions/Swallowing Feed only when alert,Reduce Recommendations distractions,Remain upright ( 90 degrees) during all oral intake,Upright position at least 30 minutes after meals, Small bites and sips when eating,Slow rate; swallow between bites Medication Recommendations As Tolerated Discharge Recommendations correction facility Education Patient/Caregiver Education Described results of evaluation,Patient expressed understanding of evaluation, Patient expressed agreement with goals & treatment plans, Patient expressed understanding of safety precautions,Patient expressed understanding of feeding recommendations Goals Long-term Goals The pt will safely tolerate least restrictive diet to meet his nutrition and hydration needs.
--- NOTE | 2023-03-11 17:03 | PC.NURSE ---
Patient is A&OXX3-4. VSS, afebrile on RA. BG WNL. NO SSI required. He has a good appetite this a.m. Speech Therapy at bedside this a.m. evaluating swallow and providing helpful education for patient to avoid aspiration. He is medically cleared for discharge to SNF for rehabillitation today. COVID retested, results negative. Patient denies pain. He call appropriately for assistance to void, but declines getting out of bed this a.m. He is escorted to w/ for discharge this afternoon with facility designee. Packet given to transporter. Patient verbalizes understanding of discharge plan and is agreeable to transferring to rehab facility this afternoon at approximately 1420. Report called to nurse Maciel at [facility].
== END 2023-03-11 14:20 | DRG 204 ==
LOC: ED 14:38 → AC 14:40
PROVIDERS: Admitting Provider Student in an Organized Health Care Education/Training Program; Emergency Provider Emergency Medicine; PCP Family Medicine; Referring Provider Emergency Medicine; Visit Provider Student in an Organized Health Care Education/Training Program
DX: R06.09 Other forms of dyspnea (principal); E11.9 Type 2 diabetes mellitus without complications; I10 Essential (primary) hypertension; E78.5 Hyperlipidemia, unspecified; K21.9 Gastro-esophageal reflux disease without esophagitis; R53.1 Weakness; R62.7 Adult failure to thrive; D64.9 Anemia, unspecified; R29.6 Repeated falls; R05.9 Cough, unspecified; Z20.822 Contact with and (suspected) exposure to COVID-19; Z79.84 Long term (current) use of oral hypoglycemic drugs; Z66 Do not resuscitate; Z68.25 Body mass index [BMI] 25.0-25.9, adult
CPT/HCPCS: 36415; 71045; 80048; 80053; 80320; 81001; 81003; 82962; 83605; 83735; 83880; 84443; 84484; 85025; 85610; 87635; 92610; 93005; 93010; 93306; 97110; 97530; 99284; C9803; G0378; J1650; J1815